=== PATIENT | male | born 1940 | race Caucasian/White ===

== ENCOUNTER 2020-03-15 08:37 | Outpatient (REF) | payer MEDICARE, SELFPAY ==
[2020-03-15 09:44] LABS: MANUAL DIFF FLAG NO
[2020-03-15 10:06] LABS: Basophils Percent Auto 0.6 % (0-2); Eosinophils Absolute Auto 0.4 X10*3/uL (0.0-0.4); Hematocrit 47.3 % (42-52); Hemoglobin 15.9 g/dl (14.0-18.0); Imm Gran Abs Auto 0.02 X10*3/uL (0.00-0.03); Imm Gran Pct Auto 0.3 % (0.0-0.4); Lymphocytes Absolute Auto 1.6 X10*3/uL (1.2-4.9); Lymphocytes Percent Auto 24.4 % (20-40); Mean Corpuscular HGB Conc 33.6 g/dl (31.0-36.0); Mean Corpuscular Hemoglobin 30.7 pg (27.0-33.0); Mean Corpuscular Volume 91.3 fL (80-98); Mean Platelet Volume 9.5 fL (9.4-12.4); Monocytes Absolute Auto 0.6 X10*3/uL (0.1-1.2); Monocytes Percent Auto 9.6 % (2-11); Neutrophils Absolute Auto 3.9 X10*3/uL (2.0-8.3); Neutrophils Percent Auto 59.1 % (45-73); Platelet Count 208 X10*3/uL (160-400); Red Blood Count 5.18 X10*6/uL (4.60-5.80); Red Cell Distribution Width 13.7 % (11.0-16.0); White Blood Count 6.7 X10*3/uL (4.8-10.8)
[2020-03-15 10:56] LABS: Estimated Average Glucose 103 mg/dL; Hemoglobin A1c % 5.2 %
[2020-03-15 11:17] LABS: Alanine Aminotransferase 13 U/L (0-40); Albumin Level 4.4 g/dL (3.5-5.0); Alkaline Phosphatase 70 U/L (39-117); Aspartate Amino Transferase 16 U/L (5-37); Bilirubin Total 1.7 mg/dL (0.0-1.0); Blood Urea Nitrogen 21 mg/dL (9-16); Calcium 9.5 mg/dL (8.4-10.2); Cholesterol 135 mg/dL; Estimated Glomerular Filt Rate > 60; Glucose Fasting 101 mg/dL (60-99); HDL Cholesterol 38 mg/dL; Total Protein 7.1 g/dL (6.5-8.0)
[2020-03-15 11:56] LABS: Anion Gap 15 (12-20); Carbon Dioxide 26 mmol/L (22-29); Chloride 101 mmol/L (96-108); LDL Cholesterol Calculated 62 mg/dl; Sodium 137 mmol/L (135-145); Triglycerides 176 mg/dL
== END 2020-03-15 08:38 | disposition home or self-care (01) ==
LOC: HO.LAB 08:37
PROVIDERS: PCP Internal Medicine Medical Oncology; Visit Provider Internal Medicine Medical Oncology
DX: E11.9 Type 2 diabetes mellitus without complications (principal); I10 Essential (primary) hypertension; E78.5 Hyperlipidemia, unspecified
CPT/HCPCS: 36415; 80053; 80061; 83036; 85025

== ENCOUNTER 2020-06-14 09:22 | Outpatient (REF) | payer MEDICARE, SELFPAY ==
[2020-06-14 10:22] LABS: MANUAL DIFF FLAG NO
[2020-06-14 10:28] LABS: Basophils Absolute Auto 0.1 X10*3/uL (0.0-0.2); Basophils Percent Auto 0.9 % (0-2); Eosinophils Absolute Auto 0.3 X10*3/uL (0.0-0.4); Eosinophils Percent Auto 4.1 % (0-4); Hematocrit 46.7 % (42-52); Hemoglobin 15.9 g/dl (14.0-18.0); Imm Gran Abs Auto 0.02 X10*3/uL (0.00-0.03); Imm Gran Pct Auto 0.3 % (0.0-0.4); Lymphocytes Absolute Auto 1.7 X10*3/uL (1.2-4.9); Lymphocytes Percent Auto 25.4 % (20-40); Mean Corpuscular Hemoglobin 31.1 pg (27.0-33.0); Mean Corpuscular Volume 91.4 fL (80-98); Mean Platelet Volume 9.1 fL (9.4-12.4); Monocytes Absolute Auto 0.6 X10*3/uL (0.1-1.2); Neutrophils Absolute Auto 4.1 X10*3/uL (2.0-8.3); Neutrophils Percent Auto 60.3 % (45-73); Platelet Count 201 X10*3/uL (160-400); Red Blood Count 5.11 X10*6/uL (4.60-5.80); White Blood Count 6.8 X10*3/uL (4.8-10.8)
[2020-06-14 10:50] LABS: Alanine Aminotransferase 14 U/L (0-40); Albumin Level 4.5 g/dL (3.5-5.0); Alkaline Phosphatase 69 U/L (39-117); Anion Gap 15 (12-20); Aspartate Amino Transferase 17 U/L (5-37); Bilirubin Total 1.5 mg/dL (0.0-1.0); Blood Urea Nitrogen 20 mg/dL (9-16); Calcium 9.1 mg/dL (8.4-10.2); Carbon Dioxide 27 mmol/L (22-29); Chloride 101 mmol/L (96-108); Cholesterol 131 mg/dL; Estimated Glomerular Filt Rate > 60; Glucose Fasting 110 mg/dL (60-99); HDL Cholesterol 34 mg/dL; LDL Cholesterol Calculated 69 mg/dl; Potassium 4.9 mmol/l (3.3-5.1); Sodium 138 mmol/L (135-145); Total Protein 7.1 g/dL (6.5-8.0); Triglycerides 142 mg/dL
== END 2020-06-14 09:23 | disposition home or self-care (01) ==
LOC: HO.LAB 09:22
PROVIDERS: Visit Provider Internal Medicine Medical Oncology
DX: E66.9 Obesity, unspecified (principal); E11.9 Type 2 diabetes mellitus without complications; E78.5 Hyperlipidemia, unspecified
CPT/HCPCS: 36415; 80053; 80061; 85025

== ENCOUNTER 2020-10-10 08:23 | Outpatient (REF) | payer MEDICARE, SELFPAY ==
[2020-10-10 09:31] LABS: MANUAL DIFF FLAG NO
[2020-10-10 09:40] LABS: Basophils Percent Auto 0.7 % (0-2); Eosinophils Absolute Auto 0.2 X10*3/uL (0.0-0.4); Eosinophils Percent Auto 4.2 % (0-4); Hematocrit 45.3 % (42-52); Hemoglobin 15.5 g/dl (14.0-18.0); Imm Gran Abs Auto 0.01 X10*3/uL (0.00-0.03); Imm Gran Pct Auto 0.2 % (0.0-0.4); Lymphocytes Absolute Auto 1.5 X10*3/uL (1.2-4.9); Lymphocytes Percent Auto 27.3 % (20-40); Mean Corpuscular HGB Conc 34.2 g/dl (31.0-36.0); Mean Corpuscular Hemoglobin 31.3 pg (27.0-33.0); Mean Corpuscular Volume 91.3 fL (80-98); Mean Platelet Volume 8.9 fL (9.4-12.4); Monocytes Absolute Auto 0.6 X10*3/uL (0.1-1.2); Monocytes Percent Auto 10.1 % (2-11); Neutrophils Absolute Auto 3.2 X10*3/uL (2.0-8.3); Neutrophils Percent Auto 57.5 % (45-73); Platelet Count 194 X10*3/uL (160-400); Red Blood Count 4.96 X10*6/uL (4.60-5.80); Red Cell Distribution Width 13.3 % (11.0-16.0); White Blood Count 5.5 X10*3/uL (4.8-10.8)
[2020-10-10 09:47] LABS: Estimated Average Glucose 111 mg/dL; Hemoglobin A1c % 5.5 %
[2020-10-10 10:03] LABS: Alanine Aminotransferase 18 U/L (0-40); Albumin Level 4.3 g/dL (3.5-5.0); Alkaline Phosphatase 60 U/L (39-117); Anion Gap 14 (12-20); Aspartate Amino Transferase 19 U/L (5-37); Bilirubin Total 1.7 mg/dL (0.0-1.0); Blood Urea Nitrogen 18 mg/dL (9-16); Calcium 9.1 mg/dL (8.4-10.2); Carbon Dioxide 22 mmol/L (22-29); Chloride 105 mmol/L (96-108); Cholesterol 147 mg/dL; Estimated Glomerular Filt Rate > 60; Glucose Fasting 113 mg/dL (60-99); HDL Cholesterol 35 mg/dL; LDL Cholesterol Calculated 80 mg/dl; Potassium 4.3 mmol/L (3.3-5.1); Sodium 137 mmol/L (135-145); Total Protein 6.8 g/dL (6.5-8.0); Triglycerides 163 mg/dL
[2020-10-10 10:51] LABS: Creatinine Urine 131.78 mg/dL; Microalbum/Creatinine Ratio Ur 5.3 ug/mg cr
== END 2020-10-10 08:24 | disposition home or self-care (01) ==
LOC: HO.LAB 08:23
PROVIDERS: PCP Internal Medicine Medical Oncology; Visit Provider Internal Medicine Medical Oncology
DX: E11.9 Type 2 diabetes mellitus without complications (principal); E78.5 Hyperlipidemia, unspecified; I10 Essential (primary) hypertension
CPT/HCPCS: 36415; 80053; 80061; 82043; 83036; 85025

== ENCOUNTER 2021-02-12 08:37 | Outpatient (REF) | payer MEDICARE, SELFPAY ==
[2021-02-12 09:18] LABS: MANUAL DIFF FLAG NO
[2021-02-12 09:26] LABS: Basophils Absolute Auto 0.1 X10*3/uL (0.0-0.2); Basophils Percent Auto 0.8 % (0-2); Eosinophils Absolute Auto 0.3 X10*3/uL (0.0-0.4); Hematocrit 46.4 % (42-52); Hemoglobin 15.9 g/dl (14.0-18.0); Imm Gran Abs Auto 0.02 X10*3/uL (0.00-0.03); Imm Gran Pct Auto 0.3 % (0.0-0.4); Lymphocytes Absolute Auto 1.8 X10*3/uL (1.2-4.9); Lymphocytes Percent Auto 28.3 % (20-40); Mean Corpuscular HGB Conc 34.3 g/dl (31.0-36.0); Mean Corpuscular Hemoglobin 31.2 pg (27.0-33.0); Mean Platelet Volume 9.1 fL (9.4-12.4); Monocytes Absolute Auto 0.6 X10*3/uL (0.1-1.2); Monocytes Percent Auto 9.1 % (2-11); Neutrophils Absolute Auto 3.6 X10*3/uL (2.0-8.3); Neutrophils Percent Auto 57.5 % (45-73); Platelet Count 197 X10*3/uL (160-400); Red Cell Distribution Width 13.2 % (11.0-16.0); White Blood Count 6.3 X10*3/uL (4.8-10.8)
[2021-02-12 10:13] LABS: Alanine Aminotransferase 17 U/L (0-40); Albumin Level 4.3 g/dL (3.5-5.0); Alkaline Phosphatase 68 U/L (39-117); Anion Gap 15 (12-20); Aspartate Amino Transferase 18 U/L (5-37); Bilirubin Total 1.5 mg/dL (0.0-1.0); Blood Urea Nitrogen 14 mg/dL (9-16); Calcium 9.4 mg/dL (8.4-10.2); Carbon Dioxide 24 mmol/L (22-29); Chloride 104 mmol/L (96-108); Cholesterol 133 mg/dL; Estimated Glomerular Filt Rate > 60; Glucose Fasting 108 mg/dL (60-99); HDL Cholesterol 35 mg/dL; LDL Cholesterol Calculated 68 mg/dl; Potassium 4.6 mmol/L (3.3-5.1); Sodium 138 mmol/L (135-145); Total Protein 6.7 g/dL (6.5-8.0); Triglycerides 151 mg/dL
[2021-02-12 11:01] LABS: Estimated Average Glucose 108 mg/dL; Hemoglobin A1c % 5.4 %
[2021-02-12 11:01] LABS: Creatinine Urine 218.09 mg/dL; Microalbum/Creatinine Ratio Ur 4.5 ug/mg cr
== END 2021-02-12 08:38 | disposition home or self-care (01) ==
LOC: HO.LAB 08:37
PROVIDERS: PCP Internal Medicine Medical Oncology; Visit Provider Internal Medicine Medical Oncology
DX: I10 Essential (primary) hypertension (principal); E78.5 Hyperlipidemia, unspecified; E11.9 Type 2 diabetes mellitus without complications
CPT/HCPCS: 36415; 80053; 80061; 82043; 83036; 85025

== ENCOUNTER 2021-06-12 08:44 | Outpatient (REF) | payer MEDICARE, SELFPAY ==
[2021-06-12 09:02] LABS: MANUAL DIFF FLAG NO
[2021-06-12 09:19] LABS: Basophils Percent Auto 0.6 % (0-2); Eosinophils Absolute Auto 0.2 X10*3/uL (0.0-0.4); Eosinophils Percent Auto 3.1 % (0-4); Hematocrit 48.6 % (42.0-52.0); Hemoglobin 16.5 g/dl (14.0-18.0); Imm Gran Abs Auto 0.01 X10*3/uL (0.00-0.03); Imm Gran Pct Auto 0.1 % (0.0-0.4); Lymphocytes Absolute Auto 1.8 X10*3/uL (1.2-4.9); Lymphocytes Percent Auto 27.1 % (20-40); Mean Corpuscular Volume 91.4 fL (80.0-98.0); Mean Platelet Volume 8.9 fL (9.4-12.4); Monocytes Absolute Auto 0.6 X10*3/uL (0.1-1.2); Neutrophils Absolute Auto 4.1 x10*3/uL (2.0-8.3); Neutrophils Percent Auto 60.1 % (45-73); Platelet Count 200 X10*3/uL (160-400); Red Blood Count 5.32 X10*6/uL (4.60-5.80); Red Cell Distribution Width 13.2 % (11.0-16.0); White Blood Count 6.8 X10*3/uL (4.8-10.8)
[2021-06-12 09:45] LABS: Alanine Aminotransferase 15 U/L (0-40); Albumin Level 4.4 g/dL (3.5-5.0); Alkaline Phosphatase 69 U/L (39-117); Anion Gap 16 (12-20); Aspartate Amino Transferase 15 U/L (5-37); Bilirubin Total 1.5 mg/dL (0.0-1.0); Blood Urea Nitrogen 21 mg/dL (9-16); Calcium 9.8 mg/dL (8.4-10.2); Carbon Dioxide 21 mmol/L (22-29); Chloride 106 mmol/L (96-108); Cholesterol 140 mg/dL; Estimated Glomerular Filt Rate > 60; Glucose Fasting 120 mg/dL (60-99); HDL Cholesterol 34 mg/dL; LDL Cholesterol Calculated 73 mg/dl; Potassium 4.2 mmol/L (3.3-5.1); Sodium 139 mmol/L (135-145); Total Protein 7.2 g/dL (6.5-8.0); Triglycerides 167 mg/dL
[2021-06-12 09:59] LABS: Estimated Average Glucose 111 mg/dL; Hemoglobin A1c % 5.5 %
[2021-06-12 10:55] LABS: Creatinine Urine 240.95 mg/dL; Microalbum/Creatinine Ratio Ur 6.2 ug/mg cr
== END 2021-06-12 08:45 | disposition home or self-care (01) ==
LOC: HO.LABR 08:44
PROVIDERS: PCP Internal Medicine Medical Oncology; Visit Provider Internal Medicine Medical Oncology
DX: E66.9 Obesity, unspecified (principal); E78.5 Hyperlipidemia, unspecified; E11.9 Type 2 diabetes mellitus without complications
CPT/HCPCS: 36415; 80053; 80061; 82043; 83036; 85025

== ENCOUNTER 2021-09-11 09:00 | Outpatient (REF) | payer MEDICARE, SELFPAY ==
[2021-09-11 09:30] LABS: MANUAL DIFF FLAG NO
[2021-09-11 10:27] LABS: Basophils Absolute Auto 0.1 X10*3/uL (0.0-0.2); Basophils Percent Auto 0.8 % (0-2); Eosinophils Absolute Auto 0.2 X10*3/uL (0.0-0.4); Eosinophils Percent Auto 3.6 % (0-4); Hematocrit 47.5 % (42.0-52.0); Hemoglobin 15.8 g/dl (14.0-18.0); Imm Gran Abs Auto 0.01 X10*3/uL (0.00-0.03); Imm Gran Pct Auto 0.2 % (0.0-0.4); Lymphocytes Absolute Auto 1.6 X10*3/uL (1.2-4.9); Lymphocytes Percent Auto 25.3 % (20-40); Mean Corpuscular HGB Conc 33.3 g/dl (31.0-36.0); Mean Corpuscular Hemoglobin 30.4 pg (27.0-33.0); Mean Corpuscular Volume 91.5 fL (80.0-98.0); Mean Platelet Volume 9.5 fL (9.4-12.4); Monocytes Absolute Auto 0.5 X10*3/uL (0.1-1.2); Monocytes Percent Auto 8.4 % (2-11); Neutrophils Percent Auto 61.7 % (45-73); Platelet Count 224 X10*3/uL (160-400); Red Blood Count 5.19 X10*6/uL (4.60-5.80); Red Cell Distribution Width 13.6 % (11.0-16.0); White Blood Count 6.4 X10*3/uL (4.8-10.8)
[2021-09-11 10:31] LABS: Estimated Average Glucose 111 mg/dL; Hemoglobin A1c % 5.5 %
[2021-09-11 11:04] LABS: Alanine Aminotransferase 18 U/L (0-40); Albumin Level 4.1 g/dL (3.5-5.0); Alkaline Phosphatase 66 U/L (39-117); Anion Gap 15 (12-20); Aspartate Amino Transferase 18 U/L (5-37); Bilirubin Total 1.6 mg/dL (0.0-1.0); Blood Urea Nitrogen 18 mg/dL (9-16); Calcium 9.4 mg/dL (8.4-10.2); Carbon Dioxide 23 mmol/L (22-29); Chloride 105 mmol/L (96-108); Cholesterol 135 mg/dL; Estimated Glomerular Filt Rate > 60; Glucose Fasting 120 mg/dL (60-99); HDL Cholesterol 32 mg/dL; LDL Cholesterol Calculated 78 mg/dl; Potassium 4.9 mmol/L (3.3-5.1); Sodium 138 mmol/L (135-145); Total Protein 6.9 g/dL (6.5-8.0); Triglycerides 127 mg/dL
[2021-09-11 11:07] LABS: Prostate Specific Antigen 4.44 ng/mL (<0.05-4.0)
== END 2021-09-11 09:01 | disposition home or self-care (01) ==
LOC: HO.LAB 09:00
PROVIDERS: PCP Internal Medicine Medical Oncology; Visit Provider Internal Medicine Medical Oncology
DX: Z12.5 Encounter for screening for malignant neoplasm of prostate (principal); E66.9 Obesity, unspecified; E78.5 Hyperlipidemia, unspecified; E11.9 Type 2 diabetes mellitus without complications; N40.0 Benign prostatic hyperplasia without lower urinary tract symptoms
CPT/HCPCS: 36415; 80053; 80061; 83036; 84153; 85025

== ENCOUNTER 2022-01-16 08:35 | Outpatient (REF) | payer MEDICARE, SELFPAY ==
[2022-01-16 08:51] LABS: MANUAL DIFF FLAG NO
[2022-01-16 09:06] LABS: Basophils Percent Auto 0.6 % (0-2); Eosinophils Absolute Auto 0.2 X10*3/uL (0.0-0.4); Eosinophils Percent Auto 3.1 % (0-4); Hematocrit 48.6 % (42.0-52.0); Hemoglobin 16.5 g/dl (14.0-18.0); Imm Gran Abs Auto 0.02 X10*3/uL (0.00-0.03); Imm Gran Pct Auto 0.3 % (0.0-0.4); Lymphocytes Percent Auto 29.5 % (20-40); Mean Corpuscular Hemoglobin 30.6 pg (27.0-33.0); Monocytes Absolute Auto 0.6 X10*3/uL (0.1-1.2); Monocytes Percent Auto 9.4 % (2-11); Neutrophils Absolute Auto 3.9 x10*3/uL (2.0-8.3); Neutrophils Percent Auto 57.1 % (45-73); Platelet Count 216 X10*3/uL (160-400); Red Cell Distribution Width 13.8 % (11.0-16.0); White Blood Count 6.8 X10*3/uL (4.8-10.8)
[2022-01-16 09:43] LABS: Alanine Aminotransferase 15 U/L (0-40); Albumin Level 4.3 g/dL (3.5-5.0); Alkaline Phosphatase 73 U/L (39-117); Anion Gap 18 (12-20); Aspartate Amino Transferase 19 U/L (5-37); Bilirubin Total 1.5 mg/dL (0.0-1.0); Blood Urea Nitrogen 17 mg/dL (9-16); Calcium 9.2 mg/dL (8.4-10.2); Carbon Dioxide 22 mmol/L (22-29); Chloride 105 mmol/L (96-108); Cholesterol 130 mg/dL; Estimated Glomerular Filt Rate > 60; Glucose Fasting 117 mg/dL (60-99); HDL Cholesterol 36 mg/dL; LDL Cholesterol Calculated 72 mg/dl; Potassium 4.5 mmol/L (3.3-5.1); Sodium 140 mmol/L (135-145); Total Protein 7.1 g/dL (6.5-8.0); Triglycerides 113 mg/dL
[2022-01-16 10:05] LABS: Prostate Specific Antigen 4.03 ng/mL (<0.05-4.0)
== END 2022-01-16 08:36 | disposition home or self-care (01) ==
LOC: HO.LAB 08:35
PROVIDERS: PCP Internal Medicine Medical Oncology; Visit Provider Internal Medicine Medical Oncology
DX: E66.9 Obesity, unspecified (principal); N40.0 Benign prostatic hyperplasia without lower urinary tract symptoms; I25.10 Atherosclerotic heart disease of native coronary artery without angina pectoris; E78.5 Hyperlipidemia, unspecified; I10 Essential (primary) hypertension; E11.9 Type 2 diabetes mellitus without complications; Z12.5 Encounter for screening for malignant neoplasm of prostate
CPT/HCPCS: 36415; 80053; 80061; 84153; 85025

== ENCOUNTER 2022-04-16 08:19 | Outpatient (REF) | payer MEDICARE, SELFPAY ==
[2022-04-16 08:29] LABS: MANUAL DIFF FLAG NO
[2022-04-16 08:47] LABS: Basophils Percent Auto 0.6 % (0-2); Eosinophils Absolute Auto 0.2 X10*3/uL (0.0-0.4); Eosinophils Percent Auto 3.6 % (0-4); Hematocrit 48.8 % (42.0-52.0); Hemoglobin 16.4 g/dl (14.0-18.0); Imm Gran Abs Auto 0.02 X10*3/uL (0.00-0.03); Imm Gran Pct Auto 0.3 % (0.0-0.4); Lymphocytes Absolute Auto 1.8 X10*3/uL (1.2-4.9); Lymphocytes Percent Auto 28.6 % (20-40); Mean Corpuscular HGB Conc 33.6 g/dl (31.0-36.0); Mean Corpuscular Hemoglobin 30.3 pg (27.0-33.0); Mean Platelet Volume 8.6 fL (9.4-12.4); Monocytes Absolute Auto 0.5 X10*3/uL (0.1-1.2); Monocytes Percent Auto 8.5 % (2-11); Neutrophils Absolute Auto 3.7 x10*3/uL (2.0-8.3); Neutrophils Percent Auto 58.4 % (45-73); Platelet Count 209 X10*3/uL (160-400); Red Blood Count 5.42 X10*6/uL (4.60-5.80); Red Cell Distribution Width 13.5 % (11.0-16.0); White Blood Count 6.4 X10*3/uL (4.8-10.8)
[2022-04-16 09:18] LABS: Alanine Aminotransferase 17 U/L (0-40); Albumin Level 4.5 g/dL (3.5-5.0); Alkaline Phosphatase 79 U/L (39-117); Anion Gap 17 (12-20); Aspartate Amino Transferase 17 U/L (5-37); Bilirubin Total 1.4 mg/dL (0.0-1.0); Blood Urea Nitrogen 16 mg/dL (9-16); Calcium 9.6 mg/dL (8.4-10.2); Carbon Dioxide 24 mmol/L (22-29); Chloride 103 mmol/L (96-108); Cholesterol 130 mg/dL; Estimated Glomerular Filt Rate 57; Glucose Fasting 130 mg/dL (60-99); HDL Cholesterol 34 mg/dL; LDL Cholesterol Calculated 72 mg/dl; Potassium 4.5 mmol/L (3.3-5.1); Sodium 139 mmol/L (135-145); Total Protein 7.1 g/dL (6.5-8.0); Triglycerides 124 mg/dL
[2022-04-16 09:39] LABS: Prostate Specific Antigen 4.88 ng/mL (<0.05-4.0)
== END 2022-04-16 08:20 | disposition home or self-care (01) ==
LOC: HO.LAB 08:19
PROVIDERS: PCP Internal Medicine Medical Oncology; Visit Provider Internal Medicine Medical Oncology
DX: Z12.5 Encounter for screening for malignant neoplasm of prostate (principal); I25.10 Atherosclerotic heart disease of native coronary artery without angina pectoris; N40.0 Benign prostatic hyperplasia without lower urinary tract symptoms; E78.5 Hyperlipidemia, unspecified
CPT/HCPCS: 36415; 80053; 80061; 84153; 85025

== ENCOUNTER 2022-07-16 08:28 | Outpatient (REF) | payer MEDICARE, SELFPAY ==
[2022-07-16 08:53] LABS: MANUAL DIFF FLAG NO
[2022-07-16 09:05] LABS: Basophils Absolute Auto 0.1 X10*3/uL (0.0-0.2); Basophils Percent Auto 0.7 % (0-2); Eosinophils Absolute Auto 0.2 X10*3/uL (0.0-0.4); Eosinophils Percent Auto 3.4 % (0-4); Hematocrit 47.5 % (42.0-52.0); Hemoglobin 16.3 g/dl (14.0-18.0); Imm Gran Abs Auto 0.02 X10*3/uL (0.00-0.03); Imm Gran Pct Auto 0.3 % (0.0-0.4); Lymphocytes Absolute Auto 1.9 X10*3/uL (1.2-4.9); Lymphocytes Percent Auto 28.9 % (20-40); Mean Corpuscular HGB Conc 34.3 g/dl (31.0-36.0); Mean Corpuscular Hemoglobin 31.1 pg (27.0-33.0); Mean Corpuscular Volume 90.6 fL (80.0-98.0); Monocytes Absolute Auto 0.6 X10*3/uL (0.1-1.2); Neutrophils Absolute Auto 3.9 x10*3/uL (2.0-8.3); Neutrophils Percent Auto 57.7 % (45-73); Platelet Count 215 X10*3/uL (160-400); Red Blood Count 5.24 X10*6/uL (4.60-5.80); Red Cell Distribution Width 14.2 % (11.0-16.0); White Blood Count 6.7 X10*3/uL (4.8-10.8)
[2022-07-16 09:20] LABS: Estimated Average Glucose 117 mg/dL; Hemoglobin A1c % 5.7 %
[2022-07-16 09:36] LABS: Alanine Aminotransferase 15 U/L (0-40); Albumin Level 4.3 g/dL (3.5-5.0); Alkaline Phosphatase 68 U/L (39-117); Anion Gap 15 (12-20); Aspartate Amino Transferase 16 U/L (5-37); Bilirubin Total 1.7 mg/dL (0.0-1.0); Blood Urea Nitrogen 19 mg/dL (9-16); Calcium 9.5 mg/dL (8.4-10.2); Carbon Dioxide 24 mmol/L (22-29); Chloride 105 mmol/L (96-108); Cholesterol 133 mg/dL; Estimated Glomerular Filt Rate 57; Glucose Fasting 123 mg/dL (60-99); HDL Cholesterol 32 mg/dL; LDL Cholesterol Calculated 78 mg/dl; Potassium 4.7 mmol/L (3.3-5.1); Sodium 139 mmol/L (135-145); Total Protein 6.7 g/dL (6.5-8.0); Triglycerides 117 mg/dL
[2022-07-16 09:50] LABS: Creatinine Urine 387.63 mg/dL; Microalbum/Creatinine Ratio Ur 5.6 ug/mg cr
== END 2022-07-16 08:29 | disposition home or self-care (01) ==
LOC: HO.LAB 08:28
PROVIDERS: PCP Internal Medicine Medical Oncology; Visit Provider Internal Medicine Medical Oncology
DX: E78.5 Hyperlipidemia, unspecified (principal); N40.0 Benign prostatic hyperplasia without lower urinary tract symptoms
CPT/HCPCS: 36415; 80053; 80061; 82043; 83036; 85025

== ENCOUNTER 2022-10-24 08:21 | Outpatient (REF) | payer MEDICARE, SELFPAY ==
[2022-10-24 08:35] LABS: MANUAL DIFF FLAG NO
[2022-10-24 09:59] LABS: Basophils Percent Auto 0.6 % (0-2); Eosinophils Absolute Auto 0.2 X10*3/uL (0.0-0.4); Eosinophils Percent Auto 2.9 % (0-4); Hematocrit 50.6 % (42.0-52.0); Hemoglobin 16.8 g/dl (14.0-18.0); Imm Gran Abs Auto 0.02 X10*3/uL (0.00-0.03); Imm Gran Pct Auto 0.3 % (0.0-0.4); Lymphocytes Absolute Auto 2.1 X10*3/uL (1.2-4.9); Lymphocytes Percent Auto 28.7 % (20-40); Mean Corpuscular HGB Conc 33.2 g/dl (31.0-36.0); Mean Corpuscular Hemoglobin 30.2 pg (27.0-33.0); Mean Platelet Volume 9.2 fL (9.4-12.4); Monocytes Absolute Auto 0.6 X10*3/uL (0.1-1.2); Monocytes Percent Auto 8.9 % (2-11); Neutrophils Absolute Auto 4.2 x10*3/uL (2.0-8.3); Neutrophils Percent Auto 58.6 % (45-73); Platelet Count 227 X10*3/uL (160-400); Red Blood Count 5.56 X10*6/uL (4.60-5.80); Red Cell Distribution Width 13.7 % (11.0-16.0); White Blood Count 7.2 X10*3/uL (4.8-10.8)
[2022-10-24 10:08] LABS: Estimated Average Glucose 108 mg/dL; Hemoglobin A1c % 5.4 %
[2022-10-24 10:43] LABS: Alanine Aminotransferase 17 U/L (0-40); Albumin Level 4.5 g/dL (3.5-5.0); Alkaline Phosphatase 79 U/L (39-117); Anion Gap 20 (12-20); Aspartate Amino Transferase 16 U/L (5-37); Blood Urea Nitrogen 15 mg/dL (9-16); Calcium 9.8 mg/dL (8.4-10.2); Carbon Dioxide 20 mmol/L (22-29); Chloride 105 mmol/L (96-108); Cholesterol 125 mg/dL; Estimated Glomerular Filt Rate > 60; Glucose Fasting 117 mg/dL (60-99); HDL Cholesterol 33 mg/dL; LDL Cholesterol Calculated 67 mg/dl; Sodium 140 mmol/L (135-145); Total Protein 7.3 g/dL (6.5-8.0); Triglycerides 129 mg/dL
== END 2022-10-24 08:22 | disposition home or self-care (01) ==
LOC: HO.LAB 08:21
PROVIDERS: PCP Internal Medicine Medical Oncology; Visit Provider Internal Medicine Medical Oncology
DX: Z12.5 Encounter for screening for malignant neoplasm of prostate (principal); I25.10 Atherosclerotic heart disease of native coronary artery without angina pectoris; E78.5 Hyperlipidemia, unspecified; E11.9 Type 2 diabetes mellitus without complications; N40.0 Benign prostatic hyperplasia without lower urinary tract symptoms
CPT/HCPCS: 36415; 80053; 80061; 83036; 84153; 85025

== ENCOUNTER 2023-01-16 08:06 | Outpatient (REF) | payer MEDICARE, SELFPAY ==
[2023-01-16 08:29] LABS: MANUAL DIFF FLAG NO
[2023-01-16 09:05] LABS: Basophils Percent Auto 0.6 % (0-2); Eosinophils Absolute Auto 0.2 X10*3/uL (0.0-0.4); Eosinophils Percent Auto 2.7 % (0-4); Hematocrit 47.4 % (42.0-52.0); Imm Gran Abs Auto 0.02 X10*3/uL (0.00-0.03); Imm Gran Pct Auto 0.3 % (0.0-0.4); Lymphocytes Absolute Auto 1.8 X10*3/uL (1.2-4.9); Lymphocytes Percent Auto 27.9 % (20-40); Mean Corpuscular HGB Conc 33.8 g/dl (31.0-36.0); Mean Corpuscular Hemoglobin 30.5 pg (27.0-33.0); Mean Corpuscular Volume 90.3 fL (80.0-98.0); Monocytes Absolute Auto 0.6 X10*3/uL (0.1-1.2); Monocytes Percent Auto 8.8 % (2-11); Neutrophils Absolute Auto 3.8 x10*3/uL (2.0-8.3); Neutrophils Percent Auto 59.7 % (45-73); Platelet Count 204 X10*3/uL (160-400); Red Blood Count 5.25 X10*6/uL (4.60-5.80); Red Cell Distribution Width 13.4 % (11.0-16.0); White Blood Count 6.3 X10*3/uL (4.8-10.8)
[2023-01-16 09:33] LABS: Alanine Aminotransferase 12 U/L (0-40); Albumin Level 4.2 g/dL (3.5-5.0); Alkaline Phosphatase 74 U/L (39-117); Anion Gap 15 (12-20); Aspartate Amino Transferase 16 U/L (5-37); Bilirubin Total 1.4 mg/dL (0.0-1.0); Blood Urea Nitrogen 13 mg/dL (9-16); Calcium 9.7 mg/dL (8.4-10.2); Carbon Dioxide 23 mmol/L (22-29); Chloride 105 mmol/L (96-108); Cholesterol 112 mg/dL (<200); Estimated Glomerular Filt Rate > 60; Glucose Fasting 107 mg/dL (60-99); HDL Cholesterol 30 mg/dL (>40); LDL Cholesterol Calculated 60 mg/dL (<100); Potassium 4.5 mmol/L (3.3-5.1); Sodium 138 mmol/L (135-145); Total Protein 7.2 g/dL (6.5-8.0); Triglycerides 114 mg/dL (<150)
[2023-01-16 09:51] LABS: Prostate Specific Antigen 5.85 ng/mL (<0.05-4.0)
== END 2023-01-16 08:07 | disposition home or self-care (01) ==
LOC: HO.LAB 08:06
PROVIDERS: PCP Internal Medicine Medical Oncology; Visit Provider Internal Medicine Medical Oncology
DX: N40.0 Benign prostatic hyperplasia without lower urinary tract symptoms (principal); I25.10 Atherosclerotic heart disease of native coronary artery without angina pectoris; E66.9 Obesity, unspecified; E78.5 Hyperlipidemia, unspecified; I10 Essential (primary) hypertension; Z12.5 Encounter for screening for malignant neoplasm of prostate
CPT/HCPCS: 36415; 80053; 80061; 84153; 85025

== ENCOUNTER 2023-04-19 08:12 | Outpatient (REF) | payer MEDICARE, SELFPAY ==
[2023-04-19 08:26] LABS: MANUAL DIFF FLAG NO
[2023-04-19 08:39] LABS: Basophils Absolute Auto 0.1 X10*3/uL (0.0-0.2); Basophils Percent Auto 0.9 % (0-2); Eosinophils Absolute Auto 0.3 X10*3/uL (0.0-0.4); Eosinophils Percent Auto 3.3 % (0-4); Hematocrit 49.6 % (42.0-52.0); Hemoglobin 16.7 g/dl (14.0-18.0); Imm Gran Abs Auto 0.03 X10*3/uL (0.00-0.03); Imm Gran Pct Auto 0.4 % (0.0-0.4); Lymphocytes Absolute Auto 2.2 X10*3/uL (1.2-4.9); Lymphocytes Percent Auto 28.1 % (20-40); Mean Corpuscular HGB Conc 33.7 g/dl (31.0-36.0); Mean Corpuscular Hemoglobin 31.2 pg (27.0-33.0); Mean Corpuscular Volume 92.7 fL (80.0-98.0); Mean Platelet Volume 9.1 fL (9.4-12.4); Monocytes Absolute Auto 0.7 X10*3/uL (0.1-1.2); Monocytes Percent Auto 8.5 % (2-11); Neutrophils Absolute Auto 4.7 x10*3/uL (2.0-8.3); Neutrophils Percent Auto 58.8 % (45-73); Platelet Count 220 X10*3/uL (160-400); Red Blood Count 5.35 X10*6/uL (4.60-5.80); White Blood Count 7.9 X10*3/uL (4.8-10.8)
[2023-04-19 08:46] LABS: Estimated Average Glucose 111 mg/dL; Hemoglobin A1c % 5.5 % (<6.0)
[2023-04-19 09:10] LABS: Alanine Aminotransferase 15 U/L (0-40); Albumin Level 4.4 g/dL (3.5-5.0); Alkaline Phosphatase 79 U/L (39-117); Anion Gap 17 (12-20); Aspartate Amino Transferase 16 U/L (5-37); Bilirubin Total 1.3 mg/dL (0.0-1.0); Blood Urea Nitrogen 17 mg/dL (9-16); Calcium 9.5 mg/dL (8.4-10.2); Carbon Dioxide 21 mmol/L (22-29); Chloride 106 mmol/L (96-108); Cholesterol 112 mg/dL (<200); Estimated Glomerular Filt Rate 59; Glucose Random 126 mg/dL (60-115); HDL Cholesterol 33 mg/dL (>40); LDL Cholesterol Calculated 56 mg/dL (<100); Potassium 4.1 mmol/L (3.3-5.1); Sodium 140 mmol/L (135-145); Total Protein 7.5 g/dL (6.5-8.0); Triglycerides 119 mg/dL (<150)
[2023-04-19 09:34] LABS: Prostate Specific Antigen 5.95 ng/mL (<0.05-4.0)
== END 2023-04-19 08:13 | disposition home or self-care (01) ==
LOC: HO.LAB 08:12
PROVIDERS: PCP Internal Medicine Medical Oncology; Visit Provider Internal Medicine Medical Oncology
DX: Z12.5 Encounter for screening for malignant neoplasm of prostate (principal); E66.9 Obesity, unspecified; E78.5 Hyperlipidemia, unspecified; I10 Essential (primary) hypertension; N40.0 Benign prostatic hyperplasia without lower urinary tract symptoms; E11.9 Type 2 diabetes mellitus without complications
CPT/HCPCS: 36415; 80053; 80061; 83036; 84153; 85025

== ENCOUNTER 2023-07-16 08:28 | Outpatient (REF) | payer MEDICARE, SELFPAY ==
[2023-07-16 08:47] LABS: MANUAL DIFF FLAG NO
[2023-07-16 09:17] LABS: Basophils Absolute Auto 0.1 X10*3/uL (0.0-0.2); Basophils Percent Auto 0.7 % (0-2); Eosinophils Absolute Auto 0.1 X10*3/uL (0.0-0.4); Eosinophils Percent Auto 1.9 % (0-4); Hematocrit 48.6 % (42.0-52.0); Hemoglobin 16.6 g/dl (14.0-18.0); Imm Gran Abs Auto 0.03 X10*3/uL (0.00-0.03); Imm Gran Pct Auto 0.4 % (0.0-0.4); Lymphocytes Absolute Auto 1.7 X10*3/uL (1.2-4.9); Lymphocytes Percent Auto 24.8 % (20-40); Mean Corpuscular HGB Conc 34.2 g/dl (31.0-36.0); Mean Corpuscular Volume 90.8 fL (80.0-98.0); Mean Platelet Volume 8.8 fL (9.4-12.4); Monocytes Absolute Auto 0.6 X10*3/uL (0.1-1.2); Monocytes Percent Auto 8.6 % (2-11); Neutrophils Absolute Auto 4.4 x10*3/uL (2.0-8.3); Neutrophils Percent Auto 63.6 % (45-73); Platelet Count 233 X10*3/uL (160-400); Red Blood Count 5.35 X10*6/uL (4.60-5.80); White Blood Count 6.9 X10*3/uL (4.8-10.8)
[2023-07-16 09:25] LABS: Estimated Average Glucose 111 mg/dL; Hemoglobin A1c % 5.5 % (<6.0)
[2023-07-16 09:44] LABS: Creatinine Urine 327.93 mg/dL; Microalbum/Creatinine Ratio Ur 9.4 ug/mg cr (<30)
[2023-07-16 09:46] LABS: Alanine Aminotransferase 22 U/L (0-40); Albumin Level 4.2 g/dL (3.5-5.0); Alkaline Phosphatase 76 U/L (39-117); Anion Gap 16 (12-20); Aspartate Amino Transferase 24 U/L (5-37); Bilirubin Total 1.2 mg/dL (0.0-1.0); Blood Urea Nitrogen 17 mg/dL (9-16); Calcium 9.5 mg/dL (8.4-10.2); Carbon Dioxide 21 mmol/L (22-29); Chloride 106 mmol/L (96-108); Cholesterol 123 mg/dL (<200); Estimated Glomerular Filt Rate > 60; Glucose Fasting 129 mg/dL (60-99); HDL Cholesterol 34 mg/dL (>40); LDL Cholesterol Calculated 71 mg/dL (<100); Potassium 4.3 mmol/L (3.3-5.1); Sodium 139 mmol/L (135-145); Total Protein 7.4 g/dL (6.5-8.0); Triglycerides 92 mg/dL (<150)
== END 2023-07-16 08:29 | disposition home or self-care (01) ==
LOC: HO.LAB 08:28
PROVIDERS: PCP Internal Medicine Medical Oncology; Visit Provider Internal Medicine Medical Oncology
DX: E66.9 Obesity, unspecified (principal); E78.5 Hyperlipidemia, unspecified; E11.9 Type 2 diabetes mellitus without complications
CPT/HCPCS: 36415; 80053; 80061; 82043; 82570; 83036; 85025

== ENCOUNTER 2023-10-17 08:18 | Outpatient (REF) | payer MEDICARE, SELFPAY ==
[2023-10-17 08:34] LABS: MANUAL DIFF FLAG NO
[2023-10-17 08:43] LABS: Basophils Percent Auto 0.6 % (0-2); Eosinophils Absolute Auto 0.2 X10*3/uL (0.0-0.4); Eosinophils Percent Auto 3.3 % (0-4); Hematocrit 46.1 % (42.0-52.0); Hemoglobin 15.9 g/dl (14.0-18.0); Imm Gran Abs Auto 0.01 X10*3/uL (0.00-0.03); Imm Gran Pct Auto 0.1 % (0.0-0.4); Lymphocytes Absolute Auto 2.3 X10*3/uL (1.2-4.9); Mean Corpuscular HGB Conc 34.5 g/dl (31.0-36.0); Mean Corpuscular Hemoglobin 31.4 pg (27.0-33.0); Mean Corpuscular Volume 91.1 fL (80.0-98.0); Mean Platelet Volume 8.8 fL (9.4-12.4); Monocytes Absolute Auto 0.7 X10*3/uL (0.1-1.2); Monocytes Percent Auto 9.2 % (2-11); Neutrophils Absolute Auto 4.1 x10*3/uL (2.0-8.3); Neutrophils Percent Auto 55.8 % (45-73); Platelet Count 205 X10*3/uL (160-400); Red Blood Count 5.06 X10*6/uL (4.60-5.80); Red Cell Distribution Width 13.7 % (11.0-16.0); White Blood Count 7.3 X10*3/uL (4.8-10.8)
[2023-10-17 09:18] LABS: Alanine Aminotransferase 13 U/L (0-40); Albumin Level 4.2 g/dL (3.5-5.0); Alkaline Phosphatase 73 U/L (39-117); Anion Gap 14 (12-20); Aspartate Amino Transferase 16 U/L (5-37); Bilirubin Total 1.6 mg/dL (0.0-1.0); Blood Urea Nitrogen 15 mg/dL (9-16); Calcium 9.3 mg/dL (8.4-10.2); Carbon Dioxide 20 mmol/L (22-29); Chloride 106 mmol/L (96-108); Cholesterol 119 mg/dL (<200); Estimated Glomerular Filt Rate > 60; Glucose Fasting 121 mg/dL (60-99); HDL Cholesterol 33 mg/dL (>40); LDL Cholesterol Calculated 61 mg/dL (<100); Potassium 4.1 mmol/L (3.3-5.1); Sodium 136 mmol/L (135-145); Total Protein 7.1 g/dL (6.5-8.0); Triglycerides 125 mg/dL (<150)
[2023-10-17 09:28] LABS: Estimated Average Glucose 120 mg/dL; Hemoglobin A1c % 5.8 % (<6.0)
[2023-10-17 10:16] LABS: Creatinine Urine 228.04 mg/dL; Microalbum/Creatinine Ratio Ur 6.5 ug/mg cr (<30)
== END 2023-10-17 08:19 | disposition home or self-care (01) ==
LOC: HO.LAB 08:18
PROVIDERS: PCP Internal Medicine Medical Oncology; Visit Provider Internal Medicine Medical Oncology
DX: E66.9 Obesity, unspecified (principal); E78.5 Hyperlipidemia, unspecified; E11.9 Type 2 diabetes mellitus without complications; I10 Essential (primary) hypertension
CPT/HCPCS: 36415; 80053; 80061; 82043; 82570; 83036; 85025

== ENCOUNTER 2024-01-20 08:15 | Outpatient (REF) | payer MEDICARE, SELFPAY ==
[2024-01-20 08:42] LABS: MANUAL DIFF FLAG NO
[2024-01-20 09:13] LABS: Basophils Absolute Auto 0.1 X10*3/uL (0.0-0.2); Basophils Percent Auto 0.7 % (0-2); Eosinophils Absolute Auto 0.2 X10*3/uL (0.0-0.4); Eosinophils Percent Auto 2.8 % (0-4); Hematocrit 46.7 % (42.0-52.0); Hemoglobin 16.3 g/dl (14.0-18.0); Imm Gran Abs Auto 0.03 X10*3/uL (0.00-0.03); Imm Gran Pct Auto 0.4 % (0.0-0.4); Lymphocytes Absolute Auto 2.1 X10*3/uL (1.2-4.9); Lymphocytes Percent Auto 30.7 % (20-40); Mean Corpuscular HGB Conc 34.9 g/dl (31.0-36.0); Mean Corpuscular Hemoglobin 31.6 pg (27.0-33.0); Mean Corpuscular Volume 90.5 fL (80.0-98.0); Monocytes Absolute Auto 0.6 X10*3/uL (0.1-1.2); Monocytes Percent Auto 9.2 % (2-11); Neutrophils Absolute Auto 3.8 x10*3/uL (2.0-8.3); Neutrophils Percent Auto 56.2 % (45-73); Platelet Count 181 X10*3/uL (160-400); Red Blood Count 5.16 X10*6/uL (4.60-5.80); Red Cell Distribution Width 13.7 % (11.0-16.0); White Blood Count 6.8 X10*3/uL (4.8-10.8)
[2024-01-20 09:31] LABS: Estimated Average Glucose 111 mg/dL; Hemoglobin A1C 150.7361 umol/L; Hemoglobin A1c % 5.5 % (<6.0)
[2024-01-20 09:53] LABS: Creatinine Urine 216.39 mg/dL; Microalbum/Creatinine Ratio Ur 8.7 ug/mg cr (<30)
[2024-01-20 10:00] LABS: Alanine Aminotransferase 11 U/L (0-40); Albumin Level 4.3 g/dL (3.5-5.0); Alkaline Phosphatase 72 U/L (39-117); Anion Gap 14 (12-20); Aspartate Amino Transferase 16 U/L (5-37); Bilirubin Total 1.4 mg/dL (0.0-1.0); Blood Urea Nitrogen 15 mg/dL (9-16); Calcium 9.6 mg/dL (8.4-10.2); Carbon Dioxide 23 mmol/L (22-29); Chloride 105 mmol/L (96-108); Cholesterol 120 mg/dL (<200); Estimated Glomerular Filt Rate > 60; Glucose Fasting 126 mg/dL (60-99); HDL Cholesterol 33 mg/dL (>40); LDL Cholesterol Calculated 59 mg/dL (<100); Potassium 4.4 mmol/L (3.3-5.1); Sodium 138 mmol/L (135-145); Triglycerides 142 mg/dL (<150)
[2024-01-20 10:11] LABS: Prostate Specific Antigen 6.63 ng/mL (<0.05-4.0)
== END 2024-01-20 08:16 | disposition home or self-care (01) ==
LOC: HO.LAB 08:15
PROVIDERS: PCP Internal Medicine Medical Oncology; Visit Provider Internal Medicine Medical Oncology
DX: E66.9 Obesity, unspecified (principal); E78.5 Hyperlipidemia, unspecified; R97.20 Elevated prostate specific antigen [PSA]; E11.9 Type 2 diabetes mellitus without complications; Z12.5 Encounter for screening for malignant neoplasm of prostate
CPT/HCPCS: 36415; 80053; 80061; 82043; 82570; 83036; 84153; 85025

== ENCOUNTER 2024-04-21 08:12 | Outpatient (REF) | payer MEDICARE, SELFPAY ==
[2024-04-21 08:30] LABS: MANUAL DIFF FLAG NO
[2024-04-21 09:04] LABS: Basophils Percent Auto 0.5 % (0-2); Eosinophils Absolute Auto 0.2 X10*3/uL (0.0-0.4); Eosinophils Percent Auto 2.5 % (0-4); Hematocrit 48.2 % (42.0-52.0); Hemoglobin 16.4 g/dl (14.0-18.0); Imm Gran Abs Auto 0.02 X10*3/uL (0.00-0.03); Imm Gran Pct Auto 0.3 % (0.0-0.4); Lymphocytes Absolute Auto 2.2 X10*3/uL (1.2-4.9); Lymphocytes Percent Auto 29.6 % (20-40); Mean Corpuscular Hemoglobin 31.2 pg (27.0-33.0); Mean Corpuscular Volume 91.6 fL (80.0-98.0); Mean Platelet Volume 9.2 fL (9.4-12.4); Monocytes Absolute Auto 0.7 X10*3/uL (0.1-1.2); Monocytes Percent Auto 9.5 % (2-11); Neutrophils Absolute Auto 4.2 x10*3/uL (2.0-8.3); Neutrophils Percent Auto 57.6 % (45-73); Platelet Count 215 X10*3/uL (160-400); Red Blood Count 5.26 X10*6/uL (4.60-5.80); Red Cell Distribution Width 13.7 % (11.0-16.0); White Blood Count 7.3 X10*3/uL (4.8-10.8)
[2024-04-21 09:39] LABS: Alanine Aminotransferase 18 U/L (0-40); Albumin Level 4.2 g/dL (3.5-5.0); Alkaline Phosphatase 76 U/L (39-117); Anion Gap 16 (12-20); Aspartate Amino Transferase 21 U/L (5-37); Bilirubin Total 1.4 mg/dL (0.0-1.0); Blood Urea Nitrogen 21 mg/dL (9-16); Calcium 9.6 mg/dL (8.4-10.2); Carbon Dioxide 21 mmol/L (22-29); Chloride 107 mmol/L (96-108); Cholesterol 115 mg/dL (<200); Estimated Glomerular Filt Rate > 60; Glucose Fasting 154 mg/dL (60-99); HDL Cholesterol 33 mg/dL (>40); LDL Cholesterol Calculated 57 mg/dL (<100); Potassium 4.2 mmol/L (3.3-5.1); Sodium 140 mmol/L (135-145); Triglycerides 126 mg/dL (<150)
[2024-04-23 14:42] LABS: Free Prostate Spec Ag 1.4 ng/mL; Percent Free Prostate Spec Ag 23 % (calc) (>25)
== END 2024-04-21 08:13 | disposition home or self-care (01) ==
LOC: HO.LAB 08:12
PROVIDERS: PCP Internal Medicine Medical Oncology; Visit Provider Internal Medicine Medical Oncology
DX: I25.10 Atherosclerotic heart disease of native coronary artery without angina pectoris (principal); E66.9 Obesity, unspecified; I10 Essential (primary) hypertension; E11.9 Type 2 diabetes mellitus without complications; N40.0 Benign prostatic hyperplasia without lower urinary tract symptoms; R97.20 Elevated prostate specific antigen [PSA]
CPT/HCPCS: 36415; 80053; 80061; 84154; 85025

== ENCOUNTER 2024-07-21 08:18 | Outpatient (REF) | payer MEDICARE, SELFPAY ==
[2024-07-21 08:43] LABS: MANUAL DIFF FLAG NO
--- OUTSIDE RECORDS SUMMARY | 2024-07-21 08:47 | XMS_ITS ---
Author Organization Ehsan Perez III, MD Address [address] [place] [address] [place] [address] Care Team Providers Care Computer Field Technician Name Role Phone Ehsan Perez Primary Care Provider REASON FOR VISIT new order for labs mailed to pt Social History Sex Assigned At : Social History Observation Description Sex Assigned At Male Encounters Encounter Location Date Provider Diagnosis Ehsan Perez III, MD [address] [place] [address] [place] [address] 02/02/2024 Ehsan Perez Coronary artery disease I25.10 ; Obesity E66.9 ; Essential hypertension I10 ; Diabetes E11.9 ; Benign prostatic hyperplasia, unspecified whether lower urinary tract symptoms present N40.0 and Elevated PSA R97.20 Assessments Encounter Date Diagnosis (ICD Code) Assessment Notes Treat ment Notes Treatment Clinical Notes 02/02/2024 Coronary artery disease (ICD-10 - I25.10) 02/02/2024 Obesity (ICD-10 - E66.9) 02/02/2024 Essential hypertension (ICD-10 - I10) 02/02/2024 Diabetes (ICD-10 - E11.9) 02/02/2024 Benign prostatic hyperplasia, unspecified whether lower urinary tract symptoms present (ICD-10 - N40.0) 02/02/2024 Elevated PSA (ICD-10 - R97.20) Plan Of Treatment Pending Test Test Name Order Date PROFILE, FASTING (COMPREHENSIVE METABOLI C) 02/02/2024 LIPID PANEL 02/02/2024 CBC w DIFF 02/02/2024 PSA Free and Total 02/02/2024 Next Appt Details Provider Name:Ehsan Perez, 07/26/2024 10:30:00 AM, [address] [place] [address] [address], [place], [address], Provider Name:Ehsan Perez, 01/27/2025 10:00:00 AM, [address] [place] [address] [address], [place], [address], Progress Notes * Fred LOCKEOB:1940 ( 84 yo M)Acc No.[id number]:02/02/2024 Patient:Ramakrishna Walters :1940???Age:84 Y???Sex:Male Address:[address] [place] [id number] Subjective: * Chief Complaints: * ???New order for labs mailed to pt * Medical History:? * Surgical History:? * Hospitalization/Major Diagno stic Procedure:? * Medications:? Objective: Assessment: * Assessment: 1.?Coronary artery disease - I25.10?2.?Obesity - E66.9?3.?Essential hypertension - I10?4.?Diabetes - E11.9?5.?Benign prostatic hyperplasia, unspecified whether lower urinary tract symptoms present - N40.0?6.?Elevated PSA - R97.20? Plan: * Treatment: 2.?Obesity?LAB: PROFILE, FASTING (COMPREHENSIVE METABOLIC) ?LAB: LIPID PANEL ?LAB: CBC w DIFF ?LAB: PSA Free and Total 3.?Essential hypertension?LAB: PROFILE, FASTING (COMPREHENSIVE METABOLIC) ?LAB: LIPID PANEL ?LAB: CBC w DIFF ?LAB: PSA Free and Total 4.?Diabetes?LAB: PROFILE, FASTING (COMPREHENSIVE METABOLIC) ?LAB: LIPID PANEL ?LAB: CBC w DIFF ?LAB: PSA Free and Total 5.?Benign prostatic hyperpla bryson, unspecified whether lower urinary tract symptoms present?LAB: PROFILE, FASTING (COMPREHENSIVE METABOLIC) ?LAB: LIPID PANEL ?LAB: CBC w DIFF ?LAB: PSA Free and Total 6.?Elevated PSA?LAB: PROFILE, FASTING (COMPREHENSIVE METABOLIC) ?LAB: LIPID PANEL ?LAB: CBC w DIFF ?LAB: PSA Free and Total * Procedure Codes:? * true * Date:? Generated for Jesika venegas/Marcus/eTsonyasmitting on:?07/21/2024 08:47 AM EST
--- OUTSIDE RECORDS SUMMARY | 2024-07-21 08:47 | XMS_ITS ---
Author Organization Ehsan Perez III, MD Address [address] [place] [address] [place] [address] Care Team Providers Care Wood Flour Miller Name Role Phone Ehsan Perez Primary Care Provider Allergies Allergen (clinical drug ingredient) Drug/Non Drug Allergy documented on EMR Reaction Allergy Type Onset Date Status No Known Drug Allergy Unknown Drug Allergy Active Results Component Value Reference Range Notes URINE DIP STICK Reviewed date:01/27/2024 11:02:48 AM Interpretation: Performing Lab: Notes/Report: SG 1.030 1.005 - 1.025 pH 5.0 5.0 - 9.0 CHANEL 15 Negative - NIT Negative Negative - PRO 15 Negative - Trace GLU Negative Negative - KET 5 Negative - UBG 0.2 0.1 - 1.8 WILLIAM Negative 0.2 - 1.3 BLD Negative Negative - Menstrating N/A REASON FOR VISIT Annual Exam Medications Medication SIG (Take, Route, Frequency, Duration) Notes Start Date End Date Status Accu-Chek Jeanette Plus w/Device as directed In Vitro Check blood glucose on Friday, Friday, Friday01/07/2020 Active Atorvastatin Calcium 20 MG 1 tablet Oral Once a day Active Lisinopril-hydroCHLOROthiaz jae 10-12.5 MG 1 tablet Orally Once a day Active Aspirin 325 MG 1 tablet Orally Once a day Active Metoprolol Succinate 50 MG 1 tablet Oral ly Once a day Active Donepezil HCl 10 MG 1 tablet at bedtime Orally Once a day for 90 days Active Furosemide 20 MG 1 tablet Orally Once a day Active OneTouch Ultra - as directed In Vitro use 1 strip to check blood sugar on Friday /Friday/ Friday09/09/2022 Active OneTouch Delica Lancets Fine 30G USE DIRECTED FOR TESTING BLOOD SUGARS FASTING ON MONDAYS, WEDNESDAYS, AND FRIDAYS Active metFORMIN HCl 500 MG TAKE 1 TABLET BY [facility] ONCE DAILY WITH A MEAL Active Gabapentin 100 MG Orally Ac tive Pantoprazole Sodium 40 MG 1 tablet Orall y Once a day Active Social History Tobacco Use: Social History Observation Description Date Details (start date - stop date) Never Smoker NA - NA Sex Assigned At : Social History Observation Description Sex Assigned At Male Tobacco Use/Smoking Question Answer Notes Patient is a nonsmoker Additional Findings: Tobacco Non-User Aggressive non-smoker Alcohol Screen Question Answer Notes Did you have a drink containing alcohol in the p ast year? No Points 0 Interpretation Negative Problems Problem Type SNOMED Code ICD Code Onset Dates Problem Status W/U Status Risk Notes Problem [id number] Mild dementia with agitation, unspecified dementia type (F03.A11) Active confirmed He has become increasingly for doubtful times and places. He has shown some agitation home with anger, throwing things and using language. After discussing this with him and his we have begun him on donepezil. Vital Signs Temperature 97.2 degrees Fahrenheit 01/27/20 24 Blood pressure systolic 142 mm Hg 01/27/20 24 Blood pressure diastolic 79 mm Hg 024 Heart Rate 94 /min 01/27/2024 Height 66 in 01/27/2024 Weight 203 lbs 01/27/2024 BMI 32.76 kg/m2 01/27/2024 Encounters Encounter Location Date Provider Diagnosis Ehsan Perez III, MD [address] [place] [address] [place] [id number] 01/27/2024 Ehsan Perez Obesity E66.9 ; Hyperlipidemia E78.5 ; Diabetes E11.9 ; Benign prostatic hyperplasia, unspecified whether lower urinary tract symptoms present N40.0 ; Coronary artery disease I25.10 ; Elevated PSA R97.20 and Mild dementia with agitation, unspecified dementia type F03.A11 Assessments Encounter Date Diagnosis (ICD Code) Assessment Notes Treat ment Notes Treatment Clinical Notes 01/27/2024 Obesity (ICD-10 - E66.9) His body mass index is stable at 32.76. We discussed weight reduction strategies. We discussed diet and nutrition today. He made a plan to lose weight at a rate of one half of a pound per week. 01/27/2024 Hyperlipidemia (ICD-10 - E78.5) His lipid profile shows him to be in his target range and no change in his medication was necessary. 01/27/2024 Diabetes (ICD-10 - E11.9) His hemoglobin A1c was 5.5. No change in his medication was made. I strongly recommended adherence to a diabetic diet, exercise and reduction in calories. 01/27/2024 Benign prostatic hyperplasia, unspecified whether lower urinary tract symptoms present (ICD-10 - N40.0) He rises from sleep once a night to urinate. We discussed lifestyle modifications he could make to reduce nocturia. 01/27/2024 Coronary artery disease (ICD-10 - I25.10) He has had no exertional angina since his last visit. He is able to conduct all of the activities of daily life without chest pain. 01/27/2024 Elevated PSA (ICD-10 - R97.20) He had to PSA determinations in 2022. They were 5.95 and 5.85. His PSA currently is 6.63. His prostate exam is unremarkable. I offered to refer him for urologic examination but he declined saying he did not wish to have a biopsy at this time. He is amenable to active surveillance. 01/27/2024 Mild dementia with agitation, unspecified dementia type (ICD-10 - F03.A11) He has become increasingly for doubtful times and places. He has shown some agitation home with anger, throwing things and using language. After discussing this with him and his we have begun him on donepezil. Plan Of Treatment Medication Medication Name Sig Start Date Stop Date Notes Accu-Chek Jeanette Plus w/Device as directe d In Vitro Check blood glucose on Friday, Friday, Friday01/07/2020 Atorvastatin Calcium 20 MG 1 tablet Oral Once a day Lisinopril-hydroCHLOROthiazi de 10-12.5 MG 1 tablet Orally Once a day Aspirin 325 MG 1 tablet Orally Once a day Metoprolol Succinate 50 MG 1 tablet Orally Once a day Donepezil HCl 10 MG 1 tablet at bedtime Orally Once a day for 90 days Furosemide 20 MG 1 tablet Orally Once a day OneTouch Ultra - as directed In Vitro use 1 strip to check blood sugar on Friday /Friday/ Friday09/09/2022 OneTouch Delica Lancets Fine 30G USE DIRECTED FOR TESTING BLOOD SUGARS FASTING ON MONDAYS, WEDNESDAYS, AND FRIDAYS metFORMIN HCl 500 MG TAKE 1 TABLET BY [facility] ONCE DAILY WITH A MEAL Gabapentin 100 MG Orally Pantoprazole Sodium 40 MG 1 tablet Orally Once a day Pending Test Test Name Order Date PROFILE, FASTING (COMPREHENSIVE METABOLI C) 01/27/2024 PSA, TOTAL+FREE 01/27/2024 CBC WITH AUTO DIFF 01/27/2024 Lipid Panel 01/27/2024 Next Appt Details Follow Up: 3 Months, Reason: OV Provider Name:Ehsan Perez, 07/26/2024 10:30:00 AM, [address] [place] [address] [address], [place], [address], Provider Name:Ehsan Perez, 01/27/2025 10:00:00 AM, [address] [place] [address] [place], [address], Progress Notes * Fred LOCKEOB:1940 ( 83 yo M)Acc No.[id number]:01/27/2024 Progress Notes Patient:?Chucky Ramakrishna Provider:?Ehsan Perez MD :1940???Age:83 Y???Sex:Male Omar e:01/27/2024 Address:[place], [id number] Subjective: * Chief Complaints: * ???Annual Exam * HPI: ???Depression Screening:? He returns to the office at the age of 83 for his annual physical examination. He had no new complaints and has been compliant with his medications. He complains of nocturia once a night. We discussed lifestyle modifications he could make to reduce nocturia. He has had no angina. The pain from the fractured right ribs has resolved. His diabetic control is excellent with a low hemoglobin A1c. He has been having increasing difficulty with memory and his has been caring for him. He was begun today on donepezil after a long discussion with his and himself to try and slow down progression of dementia. This condition is mild at present. It is limited to memory deficits. ?PHQ-9?Little interest or pleasure in doing things?Nearly every day ?Feeling down, depressed, or hopeless?Not at all ?Trouble falling or staying asleep, or sleeping too much?Nearly every day ?Feeling tired or having little energy?Not at all ?Poor appetite or overeating?Not at all ?Feeling bad about yourself or that you are a failure, or have let yourself or your family down?Not at all ?Trouble concentrating on things, such as reading the newspaper or watching television?Not at all ?Moving or speaking so slowly that other people could have noticed; or the opposite, being so fidgety or restless that you have been moving around a lot more than usual?Not at all ?Thoughts that you would be better off or of hurting yourself in some way?Nearly every day (Consider Suicide Assessment Risk) ?Total Score?9 ?Interpretation?Mild Depression ???COVID-19 Screening:?Questions?Have you experienced fever, chills, cough, sore throat, shortness of breath, difficulty breathing, muscle aches, loss of taste or smell??No ?Have you been exposed to the virus within the last 10 days??No ?Have you travelled internationally in the last 10 days??No ?Have you been exposed to COVID-19 in the past??No ???SDOH Questions:?SDOH Questions?In the past year have you been worried about losing your housing??No ?In the past year have you or any family members you live with been unable to get any of the following when it was really needed? Check all that apply:?None * ROS:?General/Constitutional:?pain?only normal aches and pains.?Chills?denies.?Fatigue?admits.?Fever?denies.?ENT:?Decreased hearing?mild.?Respiratory:?Cough?denies.?Cardiovascular:?Chest pain with exertion?denies.?Dyspnea on exertion?denies.?Shortness of breath?denies.?Gastrointestinal:?Constipation?occasional.?Decreased appetite?denies.?Diarrhea?denies.?Heartburn?denies.?Nausea?denies.?Rectal bleeding?denies.?Vomiting?denies.?Hematology:?bruising?denies.?petechiae?denies.?Swollen glands?none have been noted.?Genitourinary:?Frequent urination?once a night.?Musculoskeletal:?Muscle aches?denies.?Painful joints?denies.?Sciatica?denies.?Weakness?denies.?Skin:?Itching?denies.?Rash?denies.?Skin lesion(s)?denies.?Neurologic:?Difficulty speaking?denies.?Dizziness?denies.?Headache?denies.?Low back pain?denies.?Psychiatric:?Depressed mood?denies.? * Medical History:? * Surgical History:?appendecto my inguinal herniorrhaphy three-vessel coronary artery bypass grafting rib fractures with surgical repair surgical repair right-sided flail chest 01/2017 * Hospitalization/Major Diagno stic Procedure:?Denies Past Hospitalization * Family History:?Father: dece ased 40 yrs, myocardial infarction.?Mother: 85 yrs, hypertension, diagnosed with HTN.?3 brother(s) . .? A brother has had 3 strokes but is still living. Two other brothers are alive and well. He has no children. * Social History:?Tobacco Use:?Tobacco Use/Smoking?Patient is a?nonsmoker ?Additional Findings: Tobacco Non-User?Aggressive non-smoker ???Drugs/Alcohol:?Drugs?Have you used drugs other than those for medical reasons in the past 12 months??No ?Alcohol Screen?Did you have a drink containing alcohol in the past year??No ?Points?0 ?Interpretation?Negative ???He was born in [place]. He has been to [place] for 25 years. He has no children. 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 * Medications:?TakingmetFORMIN HCl 500 MG Tablet TAKE 1 TABLET BY MOUTH ONCE DAILY WITH A MEAL Accu-Chek Jeanette Plus w/Device Kit as directed In Vitro Check blood glucose on Friday, Friday, FridayLisinopril-hydroCHLOROthiazide 10-12.5 MG Tablet 1 tablet Orally Once a dayAtorvastatin Calcium 20 MG Tablet 1 tablet Oral Once a dayMetoprolol Succinate 50 MG Tablet Extended Release 24 Hour 1 tablet Orally Once a dayAspirin 325 MG Tablet Delayed Release 1 tablet Orally Once a dayPantoprazole Sodium 40 MG Tablet Delayed Release 1 tablet Orally Once a dayGabapentin 100 MG Capsule Orally Furosemide 20 MG Tablet 1 tablet Orally Once a dayOneTouch Delica Lancets Fine 30G Miscellaneous USE DIRECTED FOR TESTING BLOOD SUGARS FASTING ON MONDAYS, WEDNESDAYS, AND FRIDAYS OneTouch Ultra - Strip as directed In Vitro use 1 strip to check blood sugar on Friday /Friday/ FridayMedication List reviewed and reconciled with the patientTaking metFORMIN HCl 500 MG Tablet TAKE 1 TABLET BY MOUTH ONCE DAILY WITH A MEAL Taking Accu-Chek Jeanette Plus w/Device Kit as directed In Vitro Check blood glucose on Friday, Friday, FridayTaking Lisinopril-hydroCHLOROthiazide 10- 12.5 MG Tablet 1 tablet Orally Once a dayTaking Atorvastatin Calcium 20 MG Tablet 1 tablet Oral Once a dayTaking Metoprolol Succinate 50 MG Tablet Extended Release 24 Hour 1 tablet Orally Once a dayTaking Aspirin 325 MG Tablet Delayed Release 1 tablet Orally Once a dayTaking Pantoprazole Sodium 40 MG Tablet Delayed Release 1 tablet Orally Once a dayTaking Gabapentin 100 MG Capsule Orally Taking Furosemide 20 MG Tablet 1 tablet Orally Once a dayTaking OneTouch Delica Lancets Fine 30G Miscellaneous USE DIRECTED FOR TESTING BLOOD SUGARS FASTING ON MONDAYS, WEDNESDAYS, AND FRIDAYS Taking OneTouch Ultra - Strip as directed In Vitro use 1 strip to check blood sugar on Friday /Friday/ FridayMedication List reviewed and reconciled with the patient * Allergies:?No Known Drug All ergyno[Allergies Verified] Objective: * Vitals:?Ht: 66, Wt:203, BMI: 32.76, BP:142/79, HR:94, Temp:97.2, Wt-k.08. * ???Past Orders: Lab:Prostate Specific Antige n * Order Date 01/20/2024 04/19/2023 01/16/2023 Prostate Specific Antigen 6.63?H (Ref Range: <0.05-4.0 ng/mL) 5.95?H (Ref Range: <0.05-4.0 ng/mL) 5.85?H (Ref Range: <0.05-4.0 ng/mL) * Lab:Microalbumin, Random * Order Date 01/20/2024 10/17/2023 07/16/2023 Creatinine Urine 216.39 (Ref Range: mg/dL) 228.04 (Ref Range: mg/dL) 327.93 (Ref Range: mg/dL) Microalbumin Urine 19.0 (Ref Range: mg/L) 15.0 (Ref Range: mg/L) 31.0 (Ref Range: mg/L) Microalbum Creatinine Ratio Ur 8.7 (Ref Range: <30 ug/mg cr) 6.5 (Ref Range: <30 ug/mg cr) 9.4 (Ref Range: <30 ug/mg cr) * Lab:Hemoglobin A1c * Order Date 01/20/2024 10/17/2023 07/16/2023 Hemoglobin A1c % 5.5 (Ref Range: <6.0 %) 5.8 (Ref Range: <6.0 %) 5.5 (Ref Range: <6.0 %) Estimated Average Glucose 111 (Ref Range: mg/dL) 120 (Ref Range: mg/dL) 111 (Ref Range: mg/dL) * Lab:Comprehensive Libby. Pane l Fast * Order Date 01/20/2024 10/17/2023 07/16/2023 Sodium 138 (Ref Range: 135-145 mmol/L) 136 (Ref Range: 135-145 mmol/L) 139 (Ref Range: 135-145 mmol/L) Bilirubin Total 1.4?H (Ref Range: 0.0-1.0 mg/dL) 1.6?H (Ref Range: 0.0-1.0 mg/dL) 1.2?H (Ref Range: 0.0-1.0 mg/dL) Aspartate Amino Transferase 16 (Ref Range: 5-37 U/L) 16 (Ref Range: 5-37 U/L) 24 (Ref Range: 5-37 U/L) Alanine Aminotransferase 11 (Ref Range: 0-40 U/L) 13 (Ref Range: 0-40 U/L) 22 (Ref Range: 0-40 U/L) Total Protein 7.0 (Ref Range: 6.5-8.0 g/dL) 7.1 (Ref Range: 6.5-8.0 g/dL) 7.4 (Ref Range: 6.5-8.0 g/dL) Albumin Level 4.3 (Ref Range: 3.5-5.0 g/dL) 4.2 (Ref Range: 3.5-5.0 g/dL) 4.2 (Ref Range: 3.5-5.0 g/dL) Alkaline Phosphatase 72 (Ref Range: 39-117 U/L) 73 (Ref Range: 39-117 U/L) 76 (Ref Range: 39-117 U/L) Potassium 4.4 (Ref Range: 3.3-5.1 mmol/L) 4.1 (Ref Range: 3.3-5.1 mmol/L) 4.3 (Ref Range: 3.3-5.1 mmol/L) Chloride 105 (Ref Range: 96-108 mmol/L) 106 (Ref Range: 96-108 mmol/L) 106 (Ref Range: 96-108 mmol/L) Carbon Dioxide 23 (Ref Range: 22-29 mmol/L) 20?L (Ref Range: 22-29 mmol/L) 21?L (Ref Range: 22-29 mmol/L) Anion Gap 14 (Ref Range: 12-20) 14 (Ref Range: 12-20) 16 (Ref Range: 12-20) Blood Urea Nitrogen 15 (Ref Range: 9-16 mg/dL) 15 (Ref Range: 9-16 mg/dL) 17?H (Ref Range: 9-16 mg/dL) Creatinine 1.08 (Ref Range: 0.5-1.4 mg/dL) 1.08 (Ref Range: 0.5-1.4 mg/dL) 0.97 (Ref Range: 0.5-1.4 mg/dL) Estimated Glomerular Filt Rate > 60 > 60 > 60 Glucose Fasting 126?H (Ref Range: 60-99 mg/dL) 121?H (Ref Range: 60-99 mg/dL) 129?H (Ref Range: 60-99 mg/dL) Calcium 9.6 (Ref Range: 8.4-10.2 mg/dL) 9.3 (Ref Range: 8.4-10.2 mg/dL) 9.5 (Ref Range: 8.4-10.2 mg/dL) * Lab:Complete Blood Count Aut o Diff * Order Date 01/20/2024 10/17/2023 07/16/2023 White Blood Count 6.8 (Ref Range: 4.8-10.8 X10*3/uL) 7.3 (Ref Range: 4.8-10.8 X10*3/uL) 6.9 (Ref Range: 4.8-10.8 X10*3/uL) Red Blood Count 5.16 (Ref Range: 4.60-5.80 X10*6/uL) 5.06 (Ref Range: 4.60-5.80 X10*6/uL) 5.35 (Ref Range: 4.60-5.80 X10*6/uL) Hemoglobin 16.3 (Ref Range: 14.0-18.0 g/dl) 15.9 (Ref Range: 14.0-18.0 g/dl) 16.6 (Ref Range: 14.0-18.0 g/dl) Hematocrit 46.7 (Ref Range: 42.0-52.0 %) 46.1 (Ref Range: 42.0-52.0 %) 48.6 (Ref Range: 42.0-52.0 %) Mean Corpuscular Volume 90.5 (Ref Range: 80.0-98.0 fL) 91.1 (Ref Range: 80.0-98.0 fL) 90.8 (Ref Range: 80.0-98.0 fL) Mean Corpuscular Hemoglobin 31.6 (Ref Range: 27.0-33.0 pg) 31.4 (Ref Range: 27.0-33.0 pg) 31.0 (Ref Range: 27.0-33.0 pg) Mean Corpuscular HGB Conc 34.9 (Ref Range: 31.0-36.0 g/dl) 34.5 (Ref Range: 31.0-36.0 g/dl) 34.2 (Ref Range: 31.0-36.0 g/dl) Red Cell Distribution Width 13.7 (Ref Range: 11.0-16.0 %) 13.7 (Ref Range: 11.0-16.0 %) 14.0 (Ref Range: 11.0-16.0 %) Platelet Count 181 (Ref Range: 160-400 X10*3/uL) 205 (Ref Range: 160-400 X10*3/uL) 233 (Ref Range: 160-400 X10*3/uL) Mean Platelet Volume 9.0?L (Ref Range: 9.4-12.4 fL) 8.8?L (Ref Range: 9.4-12.4 fL) 8.8?L (Ref Range: 9.4-12.4 fL) Neutrophils Percent Auto 56.2 (Ref Range: 45-73 %) 55.8 (Ref Range: 45-73 %) 63.6 (Ref Range: 45-73 %) Imm Gran Pct Auto 0.4 (Ref Range: 0.0-0.4 %) 0.1 (Ref Range: 0.0-0.4 %) 0.4 (Ref Range: 0.0-0.4 %) Lymphocytes Percent Auto 30.7 (Ref Range: 20-40 %) 31.0 (Ref Range: 20-40 %) 24.8 (Ref Range: 20-40 %) Monocytes Percent Auto 9.2 (Ref Range: 2-11 %) 9.2 (Ref Range: 2-11 %) 8.6 (Ref Range: 2-11 %) Eosinophils Percent Auto 2.8 (Ref Range: 0-4 %) 3.3 (Ref Range: 0-4 %) 1.9 (Ref Range: 0-4 %) Basophils Percent Auto 0.7 (Ref Range: 0-2 %) 0.6 (Ref Range: 0-2 %) 0.7 (Ref Range: 0-2 %) NRBC Pct Auto 0.0 (Ref Range: 0.0-0.2 /100WBC) 0.0 (Ref Range: 0.0-0.2 /100WBC) 0.0 (Ref Range: 0.0-0.2 /100WBC) Neutrophils Absolute Auto 3.8 (Ref Range: 2.0-8.3 x10*3/uL) 4.1 (Ref Range: 2.0-8.3 x10*3/uL) 4.4 (Ref Range: 2.0-8.3 x10*3/uL) Imm Gran Abs Auto 0.03 (Ref Range: 0.00-0.03 X10*3/uL) 0.01 (Ref Range: 0.00-0.03 X10*3/uL) 0.03 (Ref Range: 0.00-0.03 X10*3/uL) Lymphocytes Absolute Auto 2.1 (Ref Range: 1.2-4.9 X10*3/uL) 2.3 (Ref Range: 1.2-4.9 X10*3/uL) 1.7 (Ref Range: 1.2-4.9 X10*3/uL) Monocytes Absolute Auto 0.6 (Ref Range: 0.1-1.2 X10*3/uL) 0.7 (Ref Range: 0.1-1.2 X10*3/uL) 0.6 (Ref Range: 0.1-1.2 X10*3/uL) Eosinophils Absolute Auto 0.2 (Ref Range: 0.0-0.4 X10*3/uL) 0.2 (Ref Range: 0.0-0.4 X10*3/uL) 0.1 (Ref Range: 0.0-0.4 X10*3/uL) Basophils Absolute Auto 0.1 (Ref Range: 0.0-0.2 X10*3/uL) 0.0 (Ref Range: 0.0-0.2 X10*3/uL) 0.1 (Ref Range: 0.0-0.2 X10*3/uL) NRBC Abs Auto 0.000 (Ref Range: 0.0-0.012 X10*3/uL) 0.000 (Ref Range: 0.0-0.012 X10*3/uL) 0.000 (Ref Range: 0.0-0.012 X10*3/uL) * Lab:Lipid Panel * Order Date 01/20/2024 10/17/2023 07/16/2023 Triglycerides 142 (Ref Range: <150 mg/dL) 125 (Ref Range: <150 mg/dL) 92 (Ref Range: <150 mg/dL) Cholesterol 120 (Ref Range: <200 mg/dL) 119 (Ref Range: <200 mg/dL) 123 (Ref Range: <200 mg/dL) LDL Cholesterol Calculated 59 (Ref Range: <100 mg/dL) 61 (Ref Range: <100 mg/dL) 71 (Ref Range: <100 mg/dL) HDL Cholesterol 33?L (Ref Range: >40 mg/dL) 33?L (Ref Range: >40 mg/dL) 34?L (Ref Range: >40 mg/dL) * Examination: ???General Examination: ?GENERAL APPEARANCE:?pleasant, well nourished, well developed, in no acute distress, calm and relaxed , obese , elderly man.?HEAD:?atraumatic, normocephalic.?EYES:?eomi, perrla, anicteric, conjugate.?EARS:?normal.?NOSE:?septum intact.?ORAL CAVITY:?normal, unremarkable.?NECK/THYROID:?no jugular venous distention, no carotid bruit, thyroid normal.?LYMPH NODES:?no enlarged lymph nodes,spleen normal.?SKIN:?no suspicious lesions, anicteric.?HEART:?no clicks, gallops, murmurs, or rubs, regular rhythm, S1, S2 normal, no s3, or vascular bruits.?LUNGS:?clear to auscultation , no wheezes, rales, rhonchi , good air movement.?BREASTS:??no masses palpable bilaterally.?ABDOMEN:?bowel sounds normal, no ascites, no organomegaly, no mass , centripital obesity.?RECTAL EXAM:?, normal tone , no external hemorrhoids , no masses palpable , no melena , no red blood , prostate normal In size without nodules, median furrow preserved, not enlarged , stool guaiac negative.?MUSCULOSKELETAL:?extremities unremarkable, no clubbing, cyanosis or edema.?PERIPHERAL PULSES:?normal.?NEUROLOGIC:?alert and oriented, cranial nerves 2-12 grossly intact, deep tendon reflexes 2+ symmetrical, motor strength normal upper and lower extremities, sensory exam intact, Mild to moderate memory defects in terms of date and time..?PSYCH:?alert, oriented, Mild to moderate memory defects.? Assessment: * Assessment: 1.?Obesity - E66.9 (Primary) , His body mass index is stable at 32.76. We discussed weight reduction strategies. We discussed diet and nutrition today. He made a plan to lose weight at a rate of one half of a pound per week.?2.?Hyperlipidemia - E78.5, His lipid profile shows him to be in his target range and no change in his medication was necessary.?3.?Diabetes - E11.9, His hemoglobin A1c was 5.5. No change in his medication was made. I strongly recommended adherence to a diabetic diet, exercise and reduction in calories.?4.?Benign prostatic hyperplasia, unspecified whether lower urinary tract symptoms present - N40.0, He rises from sleep once a night to urinate. We discussed lifestyle modifications he could make to reduce nocturia.?5.?Coronary artery disease - I25.10, He has had no exertional angina since his last visit. He is able to conduct all of the activities of daily life without chest pain.?6.?Elevated PSA - R97.20, He had to PSA determinations in 2022. They were 5.95 and 5.85. His PSA currently is 6.63. His prostate exam is unremarkable. I offered to refer him for urologic examination but he declined saying he did not wish to have a biopsy at this time. He is amenable to active surveillance.?7.?Mild dementia with agitation, unspecified dementia type - F03.A11, He has become increasingly for doubtful times and places. He has shown some agitation home with anger, throwing things and using language. After discussing this with him and his we have begun him on donepezil.? Plan: * Treatment: 2.?Hyperlipidemia?LAB: PROFILE, FASTING (COMPREHENSIVE METABOLIC) ?LAB: PSA, TOTAL+FREE ?LAB: CBC WITH AUTO DIFF ?LAB: Lipid Panel 3.?Diabetes?LAB: PROFILE, FASTING (COMPREHENSIVE METABOLIC) ?LAB: PSA, TOTAL+FREE ?LAB: CBC WITH AUTO DIFF ?LAB: Lipid Panel 4.?Benign prostatic hyperpla bryson, unspecified whether lower urinary tract symptoms present?LAB: PROFILE, FASTING (COMPREHENSIVE METABOLIC) ?LAB: PSA, TOTAL+FREE ?LAB: CBC WITH AUTO DIFF ?LAB: Lipid Panel 5.?Others? Continue metFORMIN HCl Tablet, 500 MG, TAKE 1 TABLET BY MOUTH ONCE DAILY WITH A MEAL;?Continue Accu-Chek Jeanette Plus Kit, w/Device, as directed, In Vitro, Check blood glucose on Friday, Friday, Friday;?Continue Lisinopril-hydroCHLOROthiazide Tablet, 10-12.5 MG, 1 tablet, Orally, Once a day;?Continue Atorvastatin Calcium Tablet, 20 MG, 1 tablet, Oral, Once a day;?Continue Metoprolol Succinate Tablet Extended Release 24 Hour, 50 MG, 1 tablet, Orally, Once a day;?Continue Aspirin Tablet Delayed Release, 325 MG, 1 tablet, Orally, Once a day;?Continue Pantoprazole Sodium Tablet Delayed Release, 40 MG, 1 tablet, Orally, Once a day;?Continue Gabapentin Capsule, 100 MG, Orally;?Continue Furosemide Tablet, 20 MG, 1 tablet, Orally, Once a day;?Continue OneTouch Delica Lancets Fine Miscellaneous, 30G, USE DIRECTED FOR TESTING BLOOD SUGARS FASTING ON MONDAYS, WEDNESDAYS, AND FRIDAYS;?Continue OneTouch Ultra Strip, -, as directed, In Vitro, use 1 strip to check blood sugar on Friday /Friday/ Friday.?? * Labs:? * ?Lab: URINE DIP STICK ? Value Reference Range ?SG 1.030 1.005 - 1.025 * ?pH 5.0 5.0 - 9.0 * ?CHANEL 15 Negative - * ?NIT Negative Negative - * ?PRO 15 Negative - Trac e * ?GLU Negative Negative - * ?KET 5 Negative - * ?UBG 0.2 0.1 - 1.8 * ?WILLIAM Negative 0.2 - 1.3 * ?BLD Negative Negative - * ?Menstrating N/A * Procedure Codes:?19523 URINE -NO [id number] TEST FOR BLOOD, FECES * Preventive Medicine:? ??Counseling:?Care goal follow-up plan:?Counseling for abnormal BMI given?Yes ?Above Normal BMI Follow-up?Dietary management education, guidance, and counseling, Dietary needs education, Exercise promotion: strength training, Exercise promotion: stretching, Feeding regime, Giving encouragement to exercise, Lifestyle education regarding diet, Nutrition / feeding management, Nutrition therapy, Prescribed activity/exercise education, Prescribed diet education, Prescribed dietary intake, Special diet education, Weight monitoring , Intervention, Order not done: Medical or Other reason not done * Follow Up:?3 Months (Reason: OV) * Images: * Sign off status: Completed true * Provider:?Ehsan Perez MD Date:?07/2023 Generated for Jesika venegas/Marcus/eTransmitting on:?07/21/2024 08:46 AM EST History and Physical Notes * HPI (History of Present Illness) Category Sub-Category Detail Notes Depression Screening PHQ-9 Little inte rest or pleasure in doing things: Nearly every day Feeling down, depressed, or hopeless: No t at all Trouble falling or staying asleep, or sl eeping too much: Nearly every day Feeling tired or having little energy: N ot at all Poor appetite or overeating: Not at all Feeling bad about yourself o r that you are a failure, or have let yourself or your family down: Not at all Trouble concentrating on thi ngs, such as reading the newspaper or watching television: Not at all Moving or speaking so slowly that other people could have noticed; or the opposite, being so fidgety or restless that you have been moving around a lot more than usual: Not at all Thoughts that you would be b rocio off or of hurting yourself in some way: Nearly every day (Consider Suicide Assessment Risk) Total Score: 9 Interpretation: Mild Depression COVID-19 Screening Questions Have you had any new onset fever, chills, cough, congestion, sore throat, shortness of breath, muscle aches?: No Have you been exposed to the virus with n the last 10 days?: No Have you travelled internationally in last 10 days?: No Have you been exposed to COVID-19 in the past?: No SDOH Questions SDOH Questions In the past year have you been worried about losing your housing?: No In the past year have you or any family members you live with been unable to get any of the following when it was really needed? Check all that apply:: None Examination Category Sub-Category Detail Notes General Examination GENERAL APPEARANCE: pleasant , well nourished, well developed, in no acute distress, calm and relaxed , obese , elderly man HEAD: atraumatic, normocep halic EYES: eomi, perrla, anicte magdalene, conjugate EARS: normal NOSE: septum intact NECK/THYROID: no jugular venous di stention, no carotid bruit, thyroid normal HEART: no clicks, gallops, murmurs, or rubs, regular rhythm, S1, S2 normal, no s3, or vascular bruits LUNGS: clear to auscultatio n , no wheezes, rales, rhonchi , good air movement ABDOMEN: bowel sounds normal, no ascites, no organomegaly, no mass , centripital obesity NEUROLOGIC: alert and oriented, cranial nerves 2-12 grossly intact, deep tendon reflexes 2+ symmetrical, motor strength normal upper and lower extremities, sensory exam intact, Mild to moderate memory defects in terms of date and time. SKIN: no suspicious lesion s, anicteric PERIPHERAL PULSES: normal BREASTS: no masses palpable b ilaterally MUSCULOSKELETAL: extremities unremark able, no clubbing, cyanosis or edema LYMPH NODES: no enlarged lymph no dilshad,spleen normal RECTAL EXAM: , normal tone , no e xternal hemorrhoids , no masses palpable , no melena , no red blood , prostate normal In size without nodules, median furrow preserved, not enlarged , stool guaiac negative PSYCH: alert, oriented, Mil d to moderate memory defects ORAL CAVITY: normal, unremarkable
--- OUTSIDE RECORDS SUMMARY | 2024-07-21 08:47 | XMS_ITS ---
Author Organization Ehsan Perez III, MD Address [address] [place] [address] [place] [address] Care Team Providers Care School Psychologist Name Role Phone Ehsan Perez Primary Care Provider [phone] Allergies Allergen (clinical drug ingredient) Drug/Non Drug Allergy documented on EMR Reaction Allergy Type Onset Date Status No Known Drug Allergy Unknown Drug Allergy Active REASON FOR VISIT Coronary artery disease, Obesity, Hypertension, Diabetes, Benign prostatic hypertrophy Medications Medication SIG (Take, Route, Frequency, Duration) Notes Start Date End Date Status Pantoprazole Sodium 40 MG 1 tablet Orall y Once a day Active Gabapentin 100 MG Orally Ac tive Furosemide 20 MG 1 tablet Orally Once a day Active OneTouch Delica Lancets Fine 30G USE DIRECTED FOR TESTING BLOOD SUGARS FASTING ON MONDAYS, WEDNESDAYS, AND FRIDAYS Active OneTouch Ultra - as directed In Vitro use 1 strip to check blood sugar on Friday /Friday/ Friday09/09/2022 Active Accu-Chek Jeanette Plus w/Device as directed In Vitro Check blood glucose on Friday, Friday, Friday01/07/2020 Active Lisinopril-hydroCHLOROthiaz jae 10-12.5 MG 1 tablet Orally Once a day Active Atorvastatin Calcium 20 MG 1 tablet Oral Once a day Active Metoprolol Succinate 50 MG 1 tablet Oral ly Once a day Active Aspirin 325 MG 1 tablet Orally Once a day Active metFORMIN HCl 500 MG TAKE 1 TABLET BY [facility] ONCE DAILY WITH A MEAL Active Donepezil HCl 10 MG 1 tablet at bedtime Orally Once a day Active Social History Tobacco Use: Social History Observation Description Date Details (start date - stop date) Never Smoker NA - NA Sex Assigned At : Social History Observation Description Sex Assigned At Male Tobacco Use/Smoking Question Answer Notes Patient is a nonsmoker Additional Findings: Tobacco Non-User Aggressive non-smoker Vital Signs Temperature 97.2 degrees Fahrenheit 04/27/20 24 Blood pressure systolic 95 mm Hg 04/27/20 24 Blood pressure diastolic 64 mm Hg 024 Heart Rate 85 /min 04/27/2024 Height 66 in 04/27/2024 Weight 199 lbs 04/27/2024 BMI 32.12 kg/m2 04/27/2024 Encounters Encounter Location Date Provider Diagnosis Ehsan Perez III, MD [address] [place] [address] [address] [place] [address] 04/27/2024 Ehsan Perez Obesity E66.9 ; Kaela nary artery disease I25.10 ; Diabetes E11.9 ; Hyperlipidemia E78.5 ; Essential hypertension I10 ; Benign prostatic hyperplasia, unspecified whether lower urinary tract symptoms present N40.0 and Multiple rib fractures involving four or more ribs S22.49XA Assessments Encounter Date Diagnosis (ICD Code) Assessment Notes Treat ment Notes Treatment Clinical Notes 04/27/2024 Obesity (ICD-10 - E66.9) His body mass index is stable at 32.12. We discussed weight reduction strategies. We discussed diet and nutrition today. He made a plan to lose weight at a rate of one half of a pound per week. 04/27/2024 Coronary artery disease (ICD-10 - I25.10) He has had no exertional angina since his last visit. He is able to conduct all of the activities of daily life without chest pain. 04/27/2024 Diabetes (ICD-10 - E11.9) His fasting glucoses 154. A hemoglobin A1c and microalbumin have been ordeered prior to his next visit. He is compliant with his treatment. He has lost 4 pounds. No change in his medications was made today. 04/27/2024 Hyperlipidemia (ICD-10 - E78.5) His total cholesterol is 115. He is compliant with his treatment and has lost 4 pounds. Discussed diet and nutrition at length today. 04/27/2024 Essential hypertension (ICD-10 - I10) His blood pressure is lower than usual but he is asymptomatic.. No change in his regimen was needed. I strongly recommend aggressive sodium restriction and ongoing weight loss. 04/27/2024 Benign prostatic hyperplasia, unspecified whether lower urinary tract symptoms present (ICD-10 - N40.0) He rises from sleep once a night to urinate. We discussed lifestyle modifications he could make to reduce nocturia. 04/27/2024 Multiple rib fractures involving four or more ribs (ICD-10 - S22.49XA) The area has healed and he is breathing comfortably. He has a long vertical scar over his right chest wall but it is not painful when he coughs and sneezes. Plan Of Treatment Medication Medication Name Sig Start Date Stop Date Notes Pantoprazole Sodium 40 MG 1 tablet Orally Once a day Gabapentin 100 MG Orally Furosemide 20 MG 1 tablet Orally Once a day OneTouch Delica Lancets Fine 30G USE DIRECTED FOR TESTING BLOOD SUGARS FASTING ON MONDAYS, WEDNESDAYS, AND FRIDAYS OneTouch Ultra - as directed In Vitro use 1 strip to check blood sugar on Friday /Friday/ Friday09/09/2022 Accu-Chek Jeanette Plus w/Device as directe d In Vitro Check blood glucose on Friday, Friday, Friday01/07/2020 Lisinopril-hydroCHLOROthiazi de 10-12.5 MG 1 tablet Orally Once a day Atorvastatin Calcium 20 MG 1 tablet Oral Once a day Metoprolol Succinate 50 MG 1 tablet Orally Once a day Aspirin 325 MG 1 tablet Orally Once a day metFORMIN HCl 500 MG TAKE 1 TABLET BY [facility] ONCE DAILY WITH A MEAL Donepezil HCl 10 MG 1 tablet at bedtime Orally Once a day Pending Test Test Name Order Date PROFILE, FASTING (COMPREHENSIVE METABOLI C) 04/27/2024 CBC WITH AUTO DIFF 04/27/2024 Lipid Panel 04/27/2024 Microalbumin, Random 04/27/2024 Hemoglobin A1c 04/27/2024 Next Appt Details Follow Up: 3 Months, 18th of this month, Reason: OV, Eye check-up Provider Name:Ehsan Perez, 07/26/2024 10:30:00 AM, [address] [place] [address] [place], [place], [id number], Provider Name:Ehsan Perez, 01/27/2025 10:00:00 AM, [address] [place] [address] [place], [place], [id number], Progress Notes * Fred LOCKEOB:1940 ( 84 yo M)Acc No.[id number]:04/27/2024 Progress Notes Patient:?Ramakrishna LOCKE Provider:?Ehsan Perez MD :1940???Age:84 Y???Sex:Male Omar e:04/27/2024 Address:[address] [place] [address] [place]ary [id number] Subjective: * Chief Complaints: * ???Coronary artery diseaseOb esityHypertensionDiabetesBenign prostatic hypertrophy * HPI: ???COVID-19 Screening:?Questions?Have you experienced fever, chills, cough, sore throat, shortness of breath, difficulty breathing, muscle aches, loss of taste or smell??No ?Have you been exposed to the virus within the last 10 days??No ?Have you travelled internationally in the last 10 days??No ?Have you been exposed to COVID-19 in the past??No ???:? The patient, an 84-year-old male, reported no trouble breathing or chest pains. He mentioned that he sleeps well, going to bed around 11:00 PM and sometimes taking a nap in the afternoon. He has been maintaining good blood glucose levels, with the highest recorded level being 133 and the lowest being 114. He has not consumed vodka for over two months. He recently had an eye test and was told that one eye was a little weaker than the other and watered a bit, but there was nothing seriously wrong. He has an upcoming appointment with the eye doctor on the of the month. The patient also mentioned having rib fractures, but they do not cause him any discomfort. Blood Sugar Level is 154. * ROS:?General/Constitutional:?pain?only normal aches and pains.?Chills?denies.?Fatigue?admits.?Fever?denies.?ENT:?Decreased hearing?in both ears.?Respiratory:?Cough?denies.?Cardiovascular:?Chest pain with exertion?denies.?Dyspnea on exertion?denies.?Shortness of breath?denies.?Gastrointestinal:?Constipation?occasional.?Decreased appetite?denies.?Diarrhea?denies.?Heartburn?denies.?Nausea?denies.?Rectal bleeding?denies.?Vomiting?denies.?Hematology:?bruising?denies.?petechiae?denies.?Swollen glands?none have been noted.?Genitourinary:?Frequent urination?once a night.?Musculoskeletal:?Muscle aches?denies.?Painful joints?denies.?Sciatica?denies.?Weakness?denies.?Skin:?Itching?denies.?Rash?denies.?Skin lesion(s)?denies.?Neurologic:?Difficulty speaking?denies.?Dizziness?denies.?Headache?denies.?Low back pain?denies.?Psychiatric:?Depressed mood?denies.? * Medical History:? * Surgical History:?appendecto my inguinal herniorrhaphy three-vessel coronary artery bypass grafting rib fractures with surgical repair surgical repair right-sided flail chest 01/2017No history * Hospitalization/Major Diagno stic Procedure:?No history * Family History:?Father: dece ased 40 yrs, myocardial infarction.?Mother: 85 yrs, hypertension, diagnosed with HTN.?3 brother(s) . .? A brother has had 3 strokes but is still living. Two other brothers are alive and well. He has no children. * Social History:?Tobacco Use:?Tobacco Use/Smoking?Patient is a?nonsmoker ?Additional Findings: Tobacco Non-User?Aggressive non-smoker ???He was born in [place]. He has been to [place] for 25 years. He has no children. 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 * Medications:?TakingmetFORMIN HCl 500 MG Tablet TAKE 1 TABLET BY MOUTH ONCE DAILY WITH A MEAL Accu-Chek Jeanette Plus w/Device Kit as directed In Vitro Check blood glucose on Friday, Friday, Friday Lisinopril-hydroCHLOROthiazide 10-12.5 MG Tablet 1 tablet Orally Once a day Atorvastatin Calcium 20 MG Tablet 1 tablet Oral Once a day Metoprolol Succinate 50 MG Tablet Extended Release 24 Hour 1 tablet Orally Once a day Aspirin 325 MG Tablet Delayed Release 1 tablet Orally Once a day Pantoprazole Sodium 40 MG Tablet Delayed Release 1 tablet Orally Once a day Gabapentin 100 MG Capsule Orally Furosemide 20 MG Tablet 1 tablet Orally Once a day OneTouch Delica Lancets Fine 30G Miscellaneous USE DIRECTED FOR TESTING BLOOD SUGARS FASTING ON MONDAYS, WEDNESDAYS, AND FRIDAYS OneTouch Ultra - Strip as directed In Vitro use 1 strip to check blood sugar on Friday /Friday/ Friday Donepezil HCl 10 MG Tablet 1 tablet at bedtime Orally Once a day Medication List reviewed and reconciled with the patientTaking metFORMIN HCl 500 MG Tablet TAKE 1 TABLET BY MOUTH ONCE DAILY WITH A MEAL Taking Accu-Chek Jeanette Plus w/Device Kit as directed In Vitro Check blood glucose on Friday, Friday, Friday Taking Lisinopril-hydroCHLOROthiazide 10- 12.5 MG Tablet 1 tablet Orally Once a day Taking Atorvastatin Calcium 20 MG Tablet 1 tablet Oral Once a day Taking Metoprolol Succinate 50 MG Tablet Extended Release 24 Hour 1 tablet Orally Once a day Taking Aspirin 325 MG Tablet Delayed Release 1 tablet Orally Once a day Taking Pantoprazole Sodium 40 MG Tablet Delayed Release 1 tablet Orally Once a day Taking Gabapentin 100 MG Capsule Orally Taking Furosemide 20 MG Tablet 1 tablet Orally Once a day Taking OneTouch Delica Lancets Fine 30G Miscellaneous USE DIRECTED FOR TESTING BLOOD SUGARS FASTING ON MONDAYS, WEDNESDAYS, AND FRIDAYS Taking OneTouch Ultra - Strip as directed In Vitro use 1 strip to check blood sugar on Friday /Friday/ Friday Taking Donepezil HCl 10 MG Tablet 1 tablet at bedtime Orally Once a day Medication List reviewed and reconciled with the patient * Allergies:?No Known Drug All ergyno[Allergies Verified] Objective: * Vitals:?Ht: 66, Wt:199, BMI: 32.12, BP:95/64, HR:85, Temp:97.2, Wt-k.26. * ???Past Orders: Lab:URINE DIP STICK * Collection Date 01/27/2024 01/22/2023 01/21/2022 Collection Time 10:12 AM Order Date 01/27/2024 01/22/2023 01/21/2022 SG 1.030 (Ref Range: 1.005 - 1.025) 1.025 (Ref Range: 1.005 - 1.025) 1.030 pH 5.0 (Ref Range: 5.0 - 9.0) 5.0 (Ref Range: 5.0 - 9.0) 5.0 CHANEL 15 (Ref Range: Negative -) Negative (Ref Range: Negative -) Negative NIT Negative (Ref Range: Negative -) Negative (Ref Range: Negative -) Negative PRO 15 (Ref Range: Negative - Trace) 15 (Ref Range: Negative - Trace) 0.15 GLU Negative (Ref Range: Negative -) Negative (Ref Range: Negative -) Negative KET 5 (Ref Range: Negative -) 5 (Ref Range: Negative -) 0.5 UBG 0.2 (Ref Range: 0.1 - 1.8) 4 (Ref Range: 0.1 - 1.8) 0.2 WILLIAM Negative (Ref Range: 0.2 - 1.3) Negative (Ref Range: 0.2 - 1.3) Negative BLD Negative (Ref Range: Negative -) Negative (Ref Range: Negative -) Negative Menstrating N/A N/A N/A * Lab:Complete Blood Count Aut o Diff * Collection Date 04/21/2024 01/20/2024 10/17/2023 Collection Time 08:28 AM 08:41 AM 08:32 AM Order Date 04/21/2024 01/20/2024 10/17/2023 White Blood Count 7.3 (Ref Range: 4.8-10.8 X10*3/uL) 6.8 (Ref Range: 4.8-10.8 X10*3/uL) 7.3 (Ref Range: 4.8-10.8 X10*3/uL) Red Blood Count 5.26 (Ref Range: 4.60-5.80 X10*6/uL) 5.16 (Ref Range: 4.60-5.80 X10*6/uL) 5.06 (Ref Range: 4.60-5.80 X10*6/uL) Hemoglobin 16.4 (Ref Range: 14.0-18.0 g/dl) 16.3 (Ref Range: 14.0-18.0 g/dl) 15.9 (Ref Range: 14.0-18.0 g/dl) Hematocrit 48.2 (Ref Range: 42.0-52.0 %) 46.7 (Ref Range: 42.0-52.0 %) 46.1 (Ref Range: 42.0-52.0 %) Mean Corpuscular Volume 91.6 (Ref Range: 80.0-98.0 fL) 90.5 (Ref Range: 80.0-98.0 fL) 91.1 (Ref Range: 80.0-98.0 fL) Mean Corpuscular Hemoglobin 31.2 (Ref Range: 27.0-33.0 pg) 31.6 (Ref Range: 27.0-33.0 pg) 31.4 (Ref Range: 27.0-33.0 pg) Mean Corpuscular HGB Conc 34.0 (Ref Range: 31.0-36.0 g/dl) 34.9 (Ref Range: 31.0-36.0 g/dl) 34.5 (Ref Range: 31.0-36.0 g/dl) Red Cell Distribution Width 13.7 (Ref Range: 11.0-16.0 %) 13.7 (Ref Range: 11.0-16.0 %) 13.7 (Ref Range: 11.0-16.0 %) Platelet Count 215 (Ref Range: 160-400 X10*3/uL) 181 (Ref Range: 160-400 X10*3/uL) 205 (Ref Range: 160-400 X10*3/uL) Mean Platelet Volume 9.2?L (Ref Range: 9.4-12.4 fL) 9.0?L (Ref Range: 9.4-12.4 fL) 8.8?L (Ref Range: 9.4-12.4 fL) Neutrophils Percent Auto 57.6 (Ref Range: 45-73 %) 56.2 (Ref Range: 45-73 %) 55.8 (Ref Range: 45-73 %) Imm Gran Pct Auto 0.3 (Ref Range: 0.0-0.4 %) 0.4 (Ref Range: 0.0-0.4 %) 0.1 (Ref Range: 0.0-0.4 %) Lymphocytes Percent Auto 29.6 (Ref Range: 20-40 %) 30.7 (Ref Range: 20-40 %) 31.0 (Ref Range: 20-40 %) Monocytes Percent Auto 9.5 (Ref Range: 2-11 %) 9.2 (Ref Range: 2-11 %) 9.2 (Ref Range: 2-11 %) Eosinophils Percent Auto 2.5 (Ref Range: 0-4 %) 2.8 (Ref Range: 0-4 %) 3.3 (Ref Range: 0-4 %) Basophils Percent Auto 0.5 (Ref Range: 0-2 %) 0.7 (Ref Range: 0-2 %) 0.6 (Ref Range: 0-2 %) NRBC Pct Auto 0.0 (Ref Range: 0.0-0.2 /100WBC) 0.0 (Ref Range: 0.0-0.2 /100WBC) 0.0 (Ref Range: 0.0-0.2 /100WBC) Neutrophils Absolute Auto 4.2 (Ref Range: 2.0-8.3 x10*3/uL) 3.8 (Ref Range: 2.0-8.3 x10*3/uL) 4.1 (Ref Range: 2.0-8.3 x10*3/uL) Imm Gran Abs Auto 0.02 (Ref Range: 0.00-0.03 X10*3/uL) 0.03 (Ref Range: 0.00-0.03 X10*3/uL) 0.01 (Ref Range: 0.00-0.03 X10*3/uL) Lymphocytes Absolute Auto 2.2 (Ref Range: 1.2-4.9 X10*3/uL) 2.1 (Ref Range: 1.2-4.9 X10*3/uL) 2.3 (Ref Range: 1.2-4.9 X10*3/uL) Monocytes Absolute Auto 0.7 (Ref Range: 0.1-1.2 X10*3/uL) 0.6 (Ref Range: 0.1-1.2 X10*3/uL) 0.7 (Ref Range: 0.1-1.2 X10*3/uL) Eosinophils Absolute Auto 0.2 (Ref Range: 0.0-0.4 X10*3/uL) 0.2 (Ref Range: 0.0-0.4 X10*3/uL) 0.2 (Ref Range: 0.0-0.4 X10*3/uL) Basophils Absolute Auto 0.0 (Ref Range: 0.0-0.2 X10*3/uL) 0.1 (Ref Range: 0.0-0.2 X10*3/uL) 0.0 (Ref Range: 0.0-0.2 X10*3/uL) NRBC Abs Auto 0.000 (Ref Range: 0.0-0.012 X10*3/uL) 0.000 (Ref Range: 0.0-0.012 X10*3/uL) 0.000 (Ref Range: 0.0-0.012 X10*3/uL) * Lab:Lipid Panel * Collection Date 04/21/2024 01/20/2024 10/17/2023 Collection Time 08:28 AM 08:41 AM 08:32 AM Order Date 04/21/2024 01/20/2024 10/17/2023 Triglycerides 126 (Ref Range: <150 mg/dL) 142 (Ref Range: <150 mg/dL) 125 (Ref Range: <150 mg/dL) Cholesterol 115 (Ref Range: <200 mg/dL) 120 (Ref Range: <200 mg/dL) 119 (Ref Range: <200 mg/dL) LDL Cholesterol Calculated 57 (Ref Range: <100 mg/dL) 59 (Ref Range: <100 mg/dL) 61 (Ref Range: <100 mg/dL) HDL Cholesterol 33?L (Ref Range: >40 mg/dL) 33?L (Ref Range: >40 mg/dL) 33?L (Ref Range: >40 mg/dL) * Lab:Comprehensive Gay. Pane l Fast * Collection Date 04/21/2024 01/20/2024 10/17/2023 Collection Time 08:28 AM 08:41 AM 08:32 AM Order Date 04/21/2024 01/20/2024 10/17/2023 Sodium 140 (Ref Range: 135-145 mmol/L) 138 (Ref Range: 135-145 mmol/L) 136 (Ref Range: 135-145 mmol/L) Bilirubin Total 1.4?H (Ref Range: 0.0-1.0 mg/dL) 1.4?H (Ref Range: 0.0-1.0 mg/dL) 1.6?H (Ref Range: 0.0-1.0 mg/dL) Aspartate Amino Transferase 21 (Ref Range: 5-37 U/L) 16 (Ref Range: 5-37 U/L) 16 (Ref Range: 5-37 U/L) Alanine Aminotransferase 18 (Ref Range: 0-40 U/L) 11 (Ref Range: 0-40 U/L) 13 (Ref Range: 0-40 U/L) Total Protein 7.0 (Ref Range: 6.5-8.0 g/dL) 7.0 (Ref Range: 6.5-8.0 g/dL) 7.1 (Ref Range: 6.5-8.0 g/dL) Albumin Level 4.2 (Ref Range: 3.5-5.0 g/dL) 4.3 (Ref Range: 3.5-5.0 g/dL) 4.2 (Ref Range: 3.5-5.0 g/dL) Alkaline Phosphatase 76 (Ref Range: 39-117 U/L) 72 (Ref Range: 39-117 U/L) 73 (Ref Range: 39-117 U/L) Potassium 4.2 (Ref Range: 3.3-5.1 mmol/L) 4.4 (Ref Range: 3.3-5.1 mmol/L) 4.1 (Ref Range: 3.3-5.1 mmol/L) Chloride 107 (Ref Range: 96-108 mmol/L) 105 (Ref Range: 96-108 mmol/L) 106 (Ref Range: 96-108 mmol/L) Carbon Dioxide 21?L (Ref Range: 22-29 mmol/L) 23 (Ref Range: 22-29 mmol/L) 20?L (Ref Range: 22-29 mmol/L) Anion Gap 16 (Ref Range: 12-20) 14 (Ref Range: 12-20) 14 (Ref Range: 12-20) Blood Urea Nitrogen 21?H (Ref Range: 9-16 mg/dL) 15 (Ref Range: 9-16 mg/dL) 15 (Ref Range: 9-16 mg/dL) Creatinine 1.08 (Ref Range: 0.5-1.4 mg/dL) 1.08 (Ref Range: 0.5-1.4 mg/dL) 1.08 (Ref Range: 0.5-1.4 mg/dL) Estimated Glomerular Filt Rate > 60 > 60 > 60 Glucose Fasting 154?H (Ref Range: 60-99 mg/dL) 126?H (Ref Range: 60-99 mg/dL) 121?H (Ref Range: 60-99 mg/dL) Calcium 9.6 (Ref Range: 8.4-10.2 mg/dL) 9.6 (Ref Range: 8.4-10.2 mg/dL) 9.3 (Ref Range: 8.4-10.2 mg/dL) * Examination: ???General Examination: ?GENERAL APPEARANCE:?pleasant, well nourished, well developed, in no acute distress, calm and relaxed, obese, elderly man.?HEAD:?atraumatic, normocephalic.?EYES:?eomi, perrla, anicteric, conjugate.?EARS:?Normal anatomy with mild hearing loss.?NOSE:?septum intact.?ORAL CAVITY:?normal, unremarkable.?NECK/THYROID:?no jugular venous distention, no carotid bruit, thyroid normal.?LYMPH NODES:?no enlarged lymph nodes,spleen normal.?SKIN:?no suspicious lesions, anicteric.?HEART:?no clicks, gallops, murmurs, or rubs, regular rhythm, S1, S2 normal, no s3, or vascular bruits.?LUNGS:?clear to auscultation .?BREASTS:??no masses palpable bilaterally.?ABDOMEN:?bowel sounds normal, no ascites, no organomegaly, no mass, centripital obesity.?RECTAL EXAM:?not examined.?MUSCULOSKELETAL:?extremities unremarkable, no clubbing, cyanosis or edema, Healed surgical scars over right lateral ribs.?PERIPHERAL PULSES:?normal.?NEUROLOGIC:?alert and oriented, cranial nerves 2-12 grossly intact, deep tendon reflexes 2+ symmetrical, motor strength normal upper and lower extremities, sensory exam intact.?PSYCH:?alert, oriented.? Assessment: * Assessment: 1.?Coronary artery disease - I25.10 (Primary)???Notes :He has had no exertional angina since his last visit. He is able to conduct all of the activities of daily life without chest pain.???2.?Obesity - E66.9???Notes :His body mass index is stable at 32.12. We discussed weight reduction strategies. We discussed diet and nutrition today. He made a plan to lose weight at a rate of one half of a pound per week.???3.?Diabetes - E11.9???Notes :His fasting glucoses 154.? A hemoglobin A1c and microalbumin have been ordeered prior to his next visit.? He is compliant with his treatment.? He has lost 4 pounds.? No change in his medications was made today.???4.?Hyperlipidemia - E78.5???Notes :His total cholesterol is 115.? He is compliant with his treatment and has lost 4 pounds.? Discussed diet and nutrition at length today.???5.?Essential hypertension - I10???Notes :His blood pressure is lower than usual but he is asymptomatic.. No change in his regimen was needed. I strongly recommend aggressive sodium restriction and ongoing weight loss.???6.?Benign prostatic hyperplasia, unspecified whether lower urinary tract symptoms present - N40.0???Notes :He rises from sleep once a night to urinate. We discussed lifestyle modifications he could make to reduce nocturia.???7.?Multiple rib fractures involving four or more ribs - S22.49XA???Notes :The area has healed and he is breathing comfortably. He has a long vertical scar over his right chest wall but it is not painful when he coughs and sneezes.??? Plan: * Treatment: 2.?Diabetes?LAB: PROFILE, FASTING (COMPREHENSIVE METABOLIC) ?LAB: CBC WITH AUTO DIFF ?LAB: Lipid Panel ?LAB: Microalbumin, Random ?LAB: Hemoglobin A1c 3.?Hyperlipidemia?LAB: PROFILE, FASTING (COMPREHENSIVE METABOLIC) ?LAB: CBC WITH AUTO DIFF ?LAB: Lipid Panel ?LAB: Microalbumin, Random ?LAB: Hemoglobin A1c 4.?Others? Continue metFORMIN HCl Tablet, 500 MG, TAKE [...] blood sugar on Friday /Friday/ Friday.?? * Procedure Codes:? * Preventive Medicine:? ??Counseling:?Care goal follow-up plan:?Counseling [...] done: Medical or Other reason not done ??DM Care Plan:?Patient Lifestyle Goals?Patient wants to be able to manage diabetes without too much effort.?Treatment Goals?HbA1C < 7.0, Blood Sugars less than < 115.?Barriers?no barriers.?Self-Managment Goals?Work on weight loss, with a goal of losing 1 lb per week.? * Follow Up:?3 Months, 18th of this month (Reason: OV, Eye check-up) * Images: * Sign off status: Completed true * Provider:?Ehsan Perez MD Date:?07/2023 Generated for Mickiei ng/Marcus/eTransmitting on:?07/21/2024 08:47 AM EST History and Physical Notes * HPI (History of Present Illness) Category Sub-Category Detail Notes COVID-19 Screening Questions Have you had any new onset fever, chills, cough, congestion, sore throat, shortness of breath, muscle aches?: No Have you been exposed to the virus withi n the last 10 days?: No Have you travelled internationally in last 10 days?: No Have you been exposed to COVID-19 in the past?: No Examination Category Sub-Category Detail Notes General Examination GENERAL APPEARANCE: pleasant , well nourished, well developed, in no acute distress, calm and relaxed, obese, elderly man HEAD: atraumatic, normocep halic EYES: eomi, perrla, anicte magdalene, conjugate EARS: Normal anatomy with mild hearing loss NOSE: septum intact NECK/THYROID: no jugular venous di stention, no carotid bruit, thyroid normal HEART: no clicks, gallops, murmurs, or rubs, regular rhythm, S1, S2 normal, no s3, or vascular bruits LUNGS: clear to auscultatio n ABDOMEN: bowel sounds normal, no ascites, no organomegaly, no mass, centripital obesity NEUROLOGIC: alert and oriented, cranial nerves 2-12 grossly intact, deep tendon reflexes 2+ symmetrical, motor strength normal upper and lower extremities, sensory exam intact SKIN: no suspicious lesion s, anicteric PERIPHERAL PULSES: normal BREASTS: no masses palpable b ilaterally MUSCULOSKELETAL: extremities unremark able, no clubbing, cyanosis or edema, Healed surgical scars over right lateral ribs LYMPH NODES: no enlarged lymph no dilshad,spleen normal RECTAL EXAM: not examined PSYCH: alert, oriented ORAL CAVITY: normal, unremarkable
[2024-07-21 09:09] LABS: Basophils Absolute Auto 0.1 X10*3/uL (0.0-0.2); Basophils Percent Auto 0.7 % (0-2); Eosinophils Absolute Auto 0.3 X10*3/uL (0.0-0.4); Eosinophils Percent Auto 3.8 % (0-4); Hematocrit 47.9 % (42.0-52.0); Hemoglobin 16.4 g/dl (14.0-18.0); Imm Gran Abs Auto 0.03 X10*3/uL (0.00-0.03); Imm Gran Pct Auto 0.4 % (0.0-0.4); Lymphocytes Absolute Auto 2.2 X10*3/uL (1.2-4.9); Lymphocytes Percent Auto 28.6 % (20-40); Mean Corpuscular HGB Conc 34.2 g/dl (31.0-36.0); Mean Corpuscular Hemoglobin 30.8 pg (27.0-33.0); Monocytes Absolute Auto 0.7 X10*3/uL (0.1-1.2); Monocytes Percent Auto 8.8 % (2-11); Neutrophils Absolute Auto 4.4 x10*3/uL (2.0-8.3); Neutrophils Percent Auto 57.7 % (45-73); Platelet Count 237 X10*3/uL (160-400); Red Blood Count 5.32 X10*6/uL (4.60-5.80); Red Cell Distribution Width 13.8 % (11.0-16.0); White Blood Count 7.7 X10*3/uL (4.8-10.8)
[2024-07-21 09:17] LABS: Estimated Average Glucose 108 mg/dL; Hemoglobin A1C 152.2371 umol/L; Hemoglobin A1c % 5.4 % (<6.0); Total Hemoglobin (HGBA1C) 4245.9578 umol/L
[2024-07-21 09:41] LABS: Alanine Aminotransferase 14 U/L (0-40); Albumin Level 4.3 g/dL (3.5-5.0); Alkaline Phosphatase 94 U/L (39-117); Anion Gap 19 (12-20); Aspartate Amino Transferase 24 U/L (5-37); Bilirubin Total 1.4 mg/dL (0.0-1.0); Blood Urea Nitrogen 17 mg/dL (9-16); Calcium 9.7 mg/dL (8.4-10.2); Carbon Dioxide 20 mmol/L (22-29); Chloride 106 mmol/L (96-108); Cholesterol 116 mg/dL (<200); Estimated Glomerular Filt Rate > 60; Glucose Fasting 120 mg/dL (60-99); HDL Cholesterol 31 mg/dL (>40); LDL Cholesterol Calculated 56 mg/dL (<100); Potassium 4.6 mmol/L (3.3-5.1); Sodium 140 mmol/L (135-145); Total Protein 7.7 g/dL (6.5-8.0); Triglycerides 148 mg/dL (<150)
[2024-07-21 09:46] LABS: Creatinine Urine 198.88 mg/dL
== END 2024-07-21 08:19 | disposition home or self-care (01) ==
LOC: HO.LAB 08:18
PROVIDERS: PCP Internal Medicine Medical Oncology; Visit Provider Internal Medicine Medical Oncology
DX: E66.9 Obesity, unspecified (principal); E11.9 Type 2 diabetes mellitus without complications; E78.5 Hyperlipidemia, unspecified
CPT/HCPCS: 36415; 80053; 80061; 82043; 82570; 83036; 85025

== ENCOUNTER 2024-10-13 10:55 | Emergency (ER) | payer MEDICARE, SELFPAY ==
--- NOTE | ~2024-10-13 | XR_ITS ---
EXAMINATION: XR HIP, LEFT CLINICAL INFORMATION: atraumatic pain COMPARISON: None available. TECHNIQUE: AP pelvis, and 2 views of the left hip. FINDINGS: No fracture, dislocation, or suspicious bone lesion. There is normal alignment. 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 No evidence of AVN. Normal acetabular coverage. Femoral heads maintain normal contour. Pelvis appears intact. Degenerative changes in the SI joints and lower lumbar spine. Vascular calcifications throughout soft tissues. XR/XR hip LT w PEL1V IMPRESSION: 1. No acute bony findings. 2. 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 3. Vascular calcifications. Electronically signed by: Wisam Evans MD 10/13/2024 12:06 PM EDT
[2024-10-13 11:02] VITALS: BP 130/87; BP 138/76; PULSE 81; PULSE 82; RESP 18; TEMP 36.8; O2SAT 99; BMI 31.8
[2024-10-13 11:10] VITALS: BP 130/87; PULSE 81; RESP 18; TEMP 36.8; O2SAT 99
--- NOTE | 2024-10-13 11:12 | PC.NURSE ---
Patient presents to ED from home c/o left hip pain. Patient states pain has been presistant for some time but the pain has been increasing over the last couple days . Pain rated 9/10, denies injuries, Pain subsides with rest. +CMS +ROM in Blake LE, no warmth, no edema. VSS up to date. at bedside. Plan of care on going
--- NOTE | 2024-10-13 11:30 | ED.GENADULT ---
HPI - General Adult General Chief complaint: General Medical Stated complaint: unable to ambulate Time Seen by Provider: 10/13/24 11:30 Source: patient, RN notes reviewed and old records reviewed Mode of arrival: ambulatory Limitations: no limitations History of Present Illness ED Provider: [facility] narrative: Patient is an 84-year-old male with history of MO 20 years ago presenting to the emergency department with complaint of left lower back/hip pain. States he has had this pain for many years but that it has recently worsened over the past 2 days. Denies recent fall or other trauma. Has not taken any [id number] medications for his symptoms. Denies any weakness, numbness, tingling to his lower extremities. Denies any saddle anesthesia or bowel or bladder incontinence. Denies any urinary symptoms. Denies pain at rest, states pain is with movement. complaint: Left hip pain Related Data Previous Rx's ?Medication ?Instructions ?Recorded lidocaine 5 % topical patch 1 patch topical DAILY #15 ea 10/13/24 prednisone 20 mg tablet 20 mg PO DAILY #5 tabs 10/13/24 Allergies Allergy/AdvReac Type Severity Reaction Status Date / Time No Known Allergies Allergy Verified 10/13/24 11:03 Review of Systems Review of Systems: As per HPI Yes all other systems are reviewed and are negative Constitutional: Constitutional: Reports as per HPI Physical Exam ED Vital Signs: Vital Signs - 24 hr 10/13/24 15:35 Temperature 98.3 F Pulse Rate 81 Respiratory Rate 18 Blood Pressure 130/87 Pulse Oximetry 99 Oxygen Delivery Method Room Air BMI result Body Mass Index 31.8 Vital signs have been reviewed and appear to be correct. Blood pressure normal. Heart rate normal. Respiratory rate normal. Temperature normal. Oxygen saturation normal. Const General: cooperative, healthy appearing and no acute distress Orientation/consciousness: oriented to person, oriented to place, oriented to time and patient oriented x3 Limitations: no limitations HENMT Head: Yes normocephalic and Yes atraumatic Ears: external ears normal General nose exam: Normal external nose present Face and sinus: Yes face symmetric Mouth: oropharynx normal and moist mucous membranes Throat: Yes uvula midline Eyes Pupils: Equal, round and reactive pupils present Neck Neck: Yes normal visual inspection and Yes supple Resp Effort & Inspection: normal respiratory effort and able to speak in complete sentences Auscultation: clear to auscultation bilaterally Cardio Rate: regular rate Rhythm: regular rhythm Heart sounds: S1 normal heart sound present and S2 normal heart sound present GI Palpation (GI): Soft to palpation and nontender Auscultation: normoactive bowel sounds General: Yes no CVA tenderness Back/Spine/Pelvis Back: no CVA tenderness Thoracic/Lumbar Spine: thoracic and lumbar spine normal to inspection, straight leg raise negative bilaterally, pain with thoraco-lumbar ROM, No thoracic spinal tenderness and No lumbar spinal tenderness Sacroiliac joints: on the left tender to palpation Skin General skin exam: elasticity normal and turgor normal Neuro General: oriented to person, oriented to place, oriented to time, patient oriented x3, gait normal, tone normal, moves all extremities, Normal light touch and pain sensation, no focal motor deficits, CN's II-XI intact bilaterally and deep tendon reflexes 2+ bilaterally Cranial nerves: Yes Equal, round and reactive pupils present Cognition (Neuro): normal cognition Motor exam (neuro): 5/5 motor strength present throughout, Normal motor muscle tone present throughout and Motor abnormalities not present Extrem General: Yes full ROM, Yes no pedal edema and Yes no calf tenderness Left lower extremity: hip/thigh Details: normal to inspection, tenderness Location: of the hip Location: posteriorly and normal ROM Psych Mental Status: mental status grossly normal Affect: normal affect Thought process: Normal thought process present Medications Administered Discontinued Medications Generic Name Dose Route Start Last Admin Trade Name Behzadq PRN Reason Stop Dose Admin Acetaminophen 975 mg 10/13/24 12:46 10/13/24 12:57 Acetaminophen 325 Mg Tablet PO 10/13/24 12:47 975 mg ONCE ONE Administration Lidocaine 1 patch 10/13/24 12:46 10/13/24 12:57 Lidocaine 4 % Patch Adh..Patch TRANSDERMA 10/13/24 12:47 1 patch ONCE ONE Administration Protocol Medical Decision Making Medical Decision Making MDM Narrative: Patient is an 84-year-old male with history of MO 20 years ago presenting to the emergency department with complaint of left lower back/hip pain. On exam patient is awake, A+Ox3, VS WNL, afebrile, normal neurological exam without focal deficits, physical exam findings as above. Given reported symptoms and physical exam findings, initial differential includes but is not limited to osteoarthritis, muscle strain, fracture. Patient declined pain medication, states he has no pain at rest. X-ray notable for bilateral osteoarthritis. My interpretation is in agreement with the radiologist's interpretation. Results discussed with patient and significant other and all questions answered. Will refer to ortho for further evaluation and management. Will discharge patient on short course of prednisone as well as topical lidocaine patches. Advised patient he can also use Tylenol as needed for pain. Discussed with patient that he should use the walker that they have at home if he is having difficulty ambulating to prevent a fall. Return precautions discussed. Patient verbalized understanding of and agreement with plan. Differential Diagnosis Differential Diagnoses: The differential diagnosis associated with the presentation includes as per [facility] Admission/Observation Consideration of admission/observation: Escalation of care including admission/observation considered Patient would have been admitted to the hospital had their work up had any findings where hospital admission was appropriate and their clinical presentation warranted hospital admission. Independent Interpretation I performed an independent interpretation of an: Plain X-Ray Interpretation: Bilateral osteoarthritis on hip/pelvis x-ray. Radiology Impression Discussion of test interpretation with radiology: I have reviewed the radiologist's reading. Radiologist Impression: XR/XR hip LT w [id number] IMPRESSION: 1. No acute bony findings. 2. 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 3. Vascular calcifications. 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 Your x-ray showed evidence of osteoarthritis to both hips. We recommend that you take 650 mg of Tylenol every 6 hours as needed for pain. You are being prescribed topical lidocaine patches which you can apply to the painful area for up to 12 hours in a 24 hour period. Do not apply heat directly over the patches. You are being prescribed a short course of prednisone to decrease inflammation. We recommend that you follow-up with the orthopedic office. Call their office to schedule an appointment, they will not call you. Return to the emergency department if you develop worsening pain, change of color to your leg, fever, or any other new or concerning symptoms. Prescriptions: New prednisone 20 mg tablet 20 mg PO DAILY Qty: 5 0RF lidocaine 5 % adhesive patch,medicated 1 patch topical DAILY Qty: 15 0RF Rx Instructions: leave on most painful area for up to 12 hrs Interventions: ED Discharge Assessment Last Done: 10/13/24 15:35 Discharge Date/Time: 10/13/24 15:35 Print Language: Japanese
--- OUTSIDE RECORDS SUMMARY | 2024-10-13 12:42 | XMS_ITS | Patient Health Record ---
Author Organization Ehsan Perez III, MD Address [address] [place] [address] [place] [address] Care Team Providers Care Business Applications Manager Name Role Phone Ehsan Perez Primary Care [...] 1.3 BLD Negative Negative - Menstrating N/A Complete Blood Count Auto Di ff Reviewed date:10/17/2023 11:02:19 AM Interpretation: Performing Lab:[facility], [address] [place] [phone] Notes/Report: White Blood Count 7.3 4.8-10.8 X10*3/uL Red Blood Count 5.06 4.60-5.80 X10*6/uL Hemoglobin 15.9 14.0-18.0 g/dl Hematocrit 46.1 42.0-52.0 % Mean Corpuscular Volume 91.1 80.0-98.0 fL Mean Corpuscular Hemoglobin 31.4 27.0-33.0 pg Mean Corpuscular HGB Conc 34.5 31.0-36.0 g/dl Red Cell Distribution Width 13.7 11.0-16.0 % Platelet Count 205 160-400 X10*3/uL Mean Platelet Volume 8.8 9.4-12.4 fL Neutrophils Percent Auto 55.8 45-73 % Imm Gran Pct Auto 0.1 0.0-0.4 % Lymphocytes Percent Auto 31.0 20-40 % Monocytes Percent Auto 9.2 2-11 % Eosinophils Percent Auto 3.3 0-4 % Basophils Percent Auto 0.6 0-2 % NRBC Pct Auto 0.0 0.0-0.2 /100WBC Neutrophils Absolute Auto 4.1 2.0-8.3 x10*3/u L Imm Gran Abs Auto 0.01 0.00-0.03 X10*3/uL Lymphocytes Absolute Auto 2.3 1.2-4.9 X10*3/u L Monocytes Absolute Auto 0.7 0.1-1.2 X10*3/uL Eosinophils Absolute Auto 0.2 0.0-0.4 X10*3/u L Basophils Absolute Auto 0.0 0.0-0.2 X10*3/uL NRBC Abs Auto 0.000 0.0-0.012 X10*3/uL Comprehensive [place]. Panel Fa st Reviewed date:10/17/2023 11:02:19 AM Interpretation: Performing Lab:[facility], [address] [place] [phone] Notes/Report: Sodium 136 135-145 mmol/L Potassium 4.1 3.3-5.1 mmol/L Chloride 106 96-108 mmol/L Carbon Dioxide 20 22-29 mmol/L Anion Gap 14 12-20 Blood Urea Nitrogen 15 9-16 mg/dL Creatinine 1.08 0.5-1.4 mg/dL Estimated Glomerular Filt Rate > 60 NOTE: For -[place]or[place] individuals, multiply the result by 1.210. Chronic Kidney Disease: Estimated GFR < 60 mL/min/1.73m2 Severe Kidney Disease: Estimated GFR < 15 mL/min/1.73m2 Glucose Fasting 121 60-99 mg/dL A fasting glucose from 100-125 mg/dl is considered impaired (pre-diabetes). Calcium 9.3 8.4-10.2 mg/dL Bilirubin Total 1.6 0.0-1.0 mg/dL Aspartate Amino Transferase 16 5-37 U/L Alanine Aminotransferase 13 0-40 U/L Total Protein 7.1 6.5-8.0 g/dL Albumin Level 4.2 3.5-5.0 g/dL Alkaline Phosphatase 73 39-117 U/L Lipid Panel Reviewed date:10/17/2023 11:02:19 AM Interpretation: Performing Lab:[facility], [address] [place] [phone] Notes/Report: Triglycerides 125 <150 mg/dL Desirable Triglyceride: less than 150 mg/dL Borderline High Triglyceride 150-199 mg/dL High Triglyceride: 200-499 mg/dL Very High Triglyceride: greater than or equal to 5OO mg/dL Cholesterol 119 <200 mg/dL Desirable Cholesterol: less than 200 mg/dL Borderline High Cholesterol: 200-239 mg/dL High Cholesterol: greater than 239 mg/dL LDL Cholesterol Calculated 61 <100 mg/dL Desirable LDL: less than 100 mg/dL Near Optimal/Above Optimal LDL: 110-129 mg/dL Borderline High LDL: 130-159 mg/dL High LDL: 160-189 mg/dL Very High LDL: greater than or equal to 190 mg/dL HDL Cholesterol 33 >40 mg/dL Desirable HDL: greater than 40 mg/dL Note: This HDL assay may give artificially low results in patients with liver disease. Microalbumin, Random Reviewed date:10/17/2023 11:02:19 AM Interpretation: Performing Lab:[facility], [address] [place] [phone] Notes/Report: Creatinine Urine 228.04 Microalbumin Urine 15.0 Microalbum/Creatinine Ratio Ur 6.5 <30 ug/mg cr Albumin/Creatinine Ratio Reference Ranges: Normal: < 30 ug/mg creatinine Microalbuminuria: 30 - 300 ug/mg creatinine Clinical Albuminuria: > 300 ug/mg creatinine Hemoglobin A1c Reviewed date:10/17/2023 11:02:19 AM Interpretation: Performing Lab:[facility], [address] [place] [phone] Notes/Report: Hemoglobin A1c % 5.8 <6.0 % Hemoglobin A1C Reference Range Adults: 4.8 - 6.0 % Non diabetic: < 6.0 % Goal: < 7.0 % Additional Action Suggested: > 8.0 % Note: Hemoglobin A1c results are invalid for patients with abnormal amounts of HbF. Blood transfusions may impact the HbA1c concentration in the patient sample. Estimated Average Glucose 120 eAG = Estimated average glucose which is %A1C expressed as average glucose, using the formula of the C5S-Aqjeimg Average Glucose study (ADAG), Diabetes Care, Vol.31,#8, Dec. 2007 Complete Blood Count Auto Di ff Reviewed date:01/21/2024 11:09:11 AM Interpretation: Performing Lab:[facility], [address] [place] [phone] Notes/Report: White Blood Count 6.8 4.8-10.8 X10*3/uL Red Blood Count 5.16 4.60-5.80 X10*6/uL Hemoglobin 16.3 14.0-18.0 g/dl Hematocrit 46.7 42.0-52.0 % Mean Corpuscular Volume 90.5 80.0-98.0 fL Mean Corpuscular Hemoglobin 31.6 27.0-33.0 pg Mean Corpuscular HGB Conc 34.9 31.0-36.0 g/dl Red Cell Distribution Width 13.7 11.0-16.0 % Platelet Count 181 160-400 X10*3/uL Mean Platelet Volume 9.0 9.4-12.4 fL Neutrophils Percent Auto 56.2 45-73 % Imm Gran Pct Auto 0.4 0.0-0.4 % Lymphocytes Percent Auto 30.7 20-40 % Monocytes Percent Auto 9.2 2-11 % Eosinophils Percent Auto 2.8 0-4 % Basophils Percent Auto 0.7 0-2 % NRBC Pct Auto 0.0 0.0-0.2 /100WBC Neutrophils Absolute Auto 3.8 2.0-8.3 x10*3/u L Imm Gran Abs Auto 0.03 0.00-0.03 X10*3/uL Lymphocytes Absolute Auto 2.1 1.2-4.9 X10*3/u L Monocytes Absolute Auto 0.6 0.1-1.2 X10*3/uL Eosinophils Absolute Auto 0.2 0.0-0.4 X10*3/u L Basophils Absolute Auto 0.1 0.0-0.2 X10*3/uL NRBC Abs Auto 0.000 0.0-0.012 X10*3/uL Comprehensive [place]. Panel Fa st Reviewed date:01/21/2024 11:09:11 AM Interpretation: Performing Lab:[facility], [address] [place] [phone] Notes/Report: Sodium 138 135-145 mmol/L Potassium 4.4 3.3-5.1 mmol/L Chloride 105 96-108 mmol/L Carbon Dioxide 23 22-29 mmol/L Anion Gap 14 12-20 Blood Urea Nitrogen 15 9-16 mg/dL Creatinine 1.08 0.5-1.4 mg/dL Estimated Glomerular Filt Rate > 60 NOTE: For -[place] individuals, multiply the result by 1.210. Chronic Kidney Disease: Estimated GFR < 60 mL/min/1.73m2 Severe Kidney Disease: Estimated GFR < 15 mL/min/1.73m2 Glucose Fasting 126 60-99 mg/dL A fasting glucose of 126 mg/dl or greater on more than one occasion is considered diagnostic of diabetes. Calcium 9.6 8.4-10.2 mg/dL Bilirubin Total 1.4 0.0-1.0 mg/dL Aspartate Amino Transferase 16 5-37 U/L Alanine Aminotransferase 11 0-40 U/L Total Protein 7.0 6.5-8.0 g/dL Albumin Level 4.3 3.5-5.0 g/dL Alkaline Phosphatase 72 39-117 U/L Lipid Panel Reviewed date:01/21/2024 11:09:11 AM Interpretation: Performing Lab:[facility], [address] [place] [phone] Notes/Report: Triglycerides 142 <150 mg/dL Desirable Triglyceride: less than 150 mg/dL Borderline High Triglyceride 150-199 mg/dL High Triglyceride: 200-499 mg/dL Very High Triglyceride: greater than or equal to 5OO mg/dL Cholesterol 120 <200 mg/dL Desirable Cholesterol: less than 200 mg/dL Borderline High Cholesterol: 200-239 mg/dL High Cholesterol: greater than 239 mg/dL LDL Cholesterol Calculated 59 <100 mg/dL Desirable LDL: less than 100 mg/dL Near Optimal/Above Optimal LDL: 110-129 mg/dL Borderline High LDL: 130-159 mg/dL High LDL: 160-189 mg/dL Very High LDL: greater than or equal to 190 mg/dL HDL Cholesterol 33 >40 mg/dL Desirable HDL: greater than 40 mg/dL Note: This HDL assay may give artificially low results in patients with liver disease. Prostate Specific Antigen Reviewed date:01/21/2024 11:09:11 AM Interpretation: Performing Lab:[facility], [address] [place] [phone] Notes/Report: Prostate Specific Antigen 6.63 <0.05-4.0 ng/mL PSA methodology: Griffith Alinity i Chemiluminescent Microparticle Immunoassay (CMIA) Microalbumin, Random Reviewed date:01/21/2024 11:09:11 AM Interpretation: Performing Lab:[facility], [address] [place] [phone] Notes/Report: Creatinine Urine 216.39 Microalbumin Urine 19.0 Microalbum/Creatinine Ratio Ur 8.7 <30 ug/mg cr Albumin/Creatinine Ratio Reference Ranges: Normal: < 30 ug/mg creatinine Microalbuminuria: 30 - 300 ug/mg creatinine Clinical Albuminuria: > 300 ug/mg creatinine Hemoglobin A1c Reviewed date:01/21/2024 11:09:11 AM Interpretation: Performing Lab:[facility], [address] [place] [phone] Notes/Report: Hemoglobin A1c % 5.5 <6.0 % Hemoglobin A1C Reference Range Adults: 4.8 - 6.0 % Non diabetic: < 6.0 % Goal: < 7.0 % Additional Action Suggested: > 8.0 % Note: Hemoglobin A1c results are invalid for patients with abnormal amounts of HbF. Blood transfusions may impact the HbA1c concentration in the patient sample. Estimated Average Glucose 111 eAG = Estimated average glucose which is %A1C expressed as average glucose, using the formula of the Q4Q-Ckdypaz Average Glucose study (ADAG), Diabetes Care, Vol.31,#8, Dec. 2007 Complete Blood Count Auto Di ff Reviewed date:04/22/2024 07:05:44 AM Interpretation: Performing Lab:[facility], [address] [place] [phone] Notes/Report: White Blood Count 7.3 4.8-10.8 X10*3/uL Red Blood Count 5.26 4.60-5.80 X10*6/uL Hemoglobin 16.4 14.0-18.0 g/dl Hematocrit 48.2 42.0-52.0 % Mean Corpuscular Volume 91.6 80.0-98.0 fL Mean Corpuscular Hemoglobin 31.2 27.0-33.0 pg Mean Corpuscular HGB Conc 34.0 31.0-36.0 g/dl Red Cell Distribution Width 13.7 11.0-16.0 % Platelet Count 215 160-400 X10*3/uL Mean Platelet Volume 9.2 9.4-12.4 fL Neutrophils Percent Auto 57.6 45-73 % Imm Gran Pct Auto 0.3 0.0-0.4 % Lymphocytes Percent Auto 29.6 20-40 % Monocytes Percent Auto 9.5 2-11 % Eosinophils Percent Auto 2.5 0-4 % Basophils Percent Auto 0.5 0-2 % NRBC Pct Auto 0.0 0.0-0.2 /100WBC Neutrophils Absolute Auto 4.2 2.0-8.3 x10*3/u L Imm Gran Abs Auto 0.02 0.00-0.03 X10*3/uL Lymphocytes Absolute Auto 2.2 1.2-4.9 X10*3/u L Monocytes Absolute Auto 0.7 0.1-1.2 X10*3/uL Eosinophils Absolute Auto 0.2 0.0-0.4 X10*3/u L Basophils Absolute Auto 0.0 0.0-0.2 X10*3/uL NRBC Abs Auto 0.000 0.0-0.012 X10*3/uL Comprehensive [place]. Panel Fa st Reviewed date:04/22/2024 07:05:44 AM Interpretation: Performing Lab:[facility], [address] [place] [phone] Notes/Report: Sodium 140 135-145 mmol/L Potassium 4.2 3.3-5.1 mmol/L Chloride 107 96-108 mmol/L Carbon Dioxide 21 22-29 mmol/L Anion Gap 16 12-20 Blood Urea Nitrogen 21 9-16 mg/dL Creatinine 1.08 0.5-1.4 mg/dL Estimated Glomerular Filt Rate > 60 Chronic Kidney Disease: Estimated GFR < 60 mL/min/1.73m2 Severe Kidney Disease: Estimated GFR < 15 mL/min/1.73m2 Glucose Fasting 154 60-99 mg/dL A fasting glucose of 126 mg/dl or greater on more than one occasion is considered diagnostic of diabetes. Calcium 9.6 8.4-10.2 mg/dL Bilirubin Total 1.4 0.0-1.0 mg/dL Aspartate Amino Transferase 21 5-37 U/L Alanine Aminotransferase 18 0-40 U/L Total Protein 7.0 6.5-8.0 g/dL Albumin Level 4.2 3.5-5.0 g/dL Alkaline Phosphatase 76 39-117 U/L Lipid Panel Reviewed date:04/22/2024 07:05:44 AM Interpretation: Performing Lab:[facility], [address] [place] [phone] Notes/Report: Triglycerides 126 <150 mg/dL Desirable Triglyceride: less than 150 mg/dL Borderline High Triglyceride 150-199 mg/dL High Triglyceride: 200-499 mg/dL Very High Triglyceride: greater than or equal to 5OO mg/dL Cholesterol 115 <200 mg/dL Desirable Cholesterol: less than 200 mg/dL Borderline High Cholesterol: 200-239 mg/dL High Cholesterol: greater than 239 mg/dL LDL Cholesterol Calculated 57 <100 mg/dL Desirable LDL: less than 100 mg/dL Near Optimal/Above Optimal LDL: 110-129 mg/dL Borderline High LDL: 130-159 mg/dL High LDL: 160-189 mg/dL Very High LDL: greater than or equal to 190 mg/dL HDL Cholesterol 33 >40 mg/dL Desirable HDL: greater than 40 mg/dL Note: This HDL assay may give artificially low results in patients with liver disease. PSA Free and Total Reviewed date:05/19/2024 08:50:49 AM Interpretation: Performing Lab:[facility], [address] [place] [phone] Notes/Report: Prostate Specific Ag Total 6.0 < OR = 4.0 ng/mL Percent Free Prostate Spec Ag 23 >25 % (calc) PSA(ng/mL) Free PSA(%) Estimated(x) Probability of Cancer(as%) 0-2.5 (*) Approx. 1 2.6-4.0(1) 0-27(2) 24(3) 4.1-10(4) 0-10 56 11-15 28 16-20 20 21-25 16 >or =26 8 >10(+) N/A >50 References:(1)Kobi wang et al.:Urology 60: 469-474 (2001) (2)Jillian et al.:J.Urol 168: 922-925 (2001) Free PSA(%) Sensitivity(%) Specificity(%) < or = 25 85 19 < or = 30 93 9 (3)Catalona et al.:SABA 277: 7096-5371 (1996) (4)Catalona et al.:SABA 279: 1346-4048 (1997) (x)These estimates vary with age, ethnicity, family history and MARILEE results. (*)The diagnostic usefulness of % Free PSA has not been established in patients with total PSA below 2.6 ng/mL (+)In men with PSA above 10 ng/mL, prostate cancer risk is determined by total PSA alone. The Total PSA value from this assay system is standardized against the equimolar PSA standard. The test result will be approximately 20% higher when compared to the WHO-standardized Total PSA (Siemens assay). Comparison of serial PSA results should be interpreted with this fact in mind. PSA was performed using the Wagner Falguni Immunoassay method. Values obtained from different assay methods cannot be used interchangeably. PSA levels, regardless of value, should not be interpreted as absolute evidence of the presence or absence of disease. THIS TEST WAS PERFORMED AT: [facility] [address] [phone] TOSHIA JENKINS MD Free Prostate Spec Ag 1.4 Complete Blood Count Auto Di ff Reviewed date:07/26/2024 11:24:32 AM Interpretation: Performing Lab:[facility], [address] [place] [phone] Notes/Report: White Blood Count 7.7 4.8-10.8 X10*3/uL Red Blood Count 5.32 4.60-5.80 X10*6/uL Hemoglobin 16.4 14.0-18.0 g/dl Hematocrit 47.9 42.0-52.0 % Mean Corpuscular Volume 90.0 80.0-98.0 fL Mean Corpuscular Hemoglobin 30.8 27.0-33.0 pg Mean Corpuscular HGB Conc 34.2 31.0-36.0 g/dl Red Cell Distribution Width 13.8 11.0-16.0 % Platelet Count 237 160-400 X10*3/uL Mean Platelet Volume 9.0 9.4-12.4 fL Neutrophils Percent Auto 57.7 45-73 % Imm Gran Pct Auto 0.4 0.0-0.4 % Lymphocytes Percent Auto 28.6 20-40 % Monocytes Percent Auto 8.8 2-11 % Eosinophils Percent Auto 3.8 0-4 % Basophils Percent Auto 0.7 0-2 % NRBC Pct Auto 0.0 0.0-0.2 /100WBC Neutrophils Absolute Auto 4.4 2.0-8.3 x10*3/u L Imm Gran Abs Auto 0.03 0.00-0.03 X10*3/uL Lymphocytes Absolute Auto 2.2 1.2-4.9 X10*3/u L Monocytes Absolute Auto 0.7 0.1-1.2 X10*3/uL Eosinophils Absolute Auto 0.3 0.0-0.4 X10*3/u L Basophils Absolute Auto 0.1 0.0-0.2 X10*3/uL NRBC Abs Auto 0.000 0.0-0.012 X10*3/uL Comprehensive [place]. Panel Fa st Reviewed date:07/26/2024 11:24:32 AM Interpretation: Performing Lab:[facility], [address] [place] [phone] Notes/Report: Sodium 140 135-145 mmol/L Potassium 4.6 3.3-5.1 mmol/L Chloride 106 96-108 mmol/L Carbon Dioxide 20 22-29 mmol/L Anion Gap 19 12-20 Blood Urea Nitrogen 17 9-16 mg/dL Creatinine 1.00 0.5-1.4 mg/dL Estimated Glomerular Filt Rate > 60 Chronic Kidney Disease: Estimated GFR < 60 mL/min/1.73m2 Severe Kidney Disease: Estimated GFR < 15 mL/min/1.73m2 Glucose Fasting 120 60-99 mg/dL A fasting glucose from 100-125 mg/dl is considered impaired (pre-diabetes). Calcium 9.7 8.4-10.2 mg/dL Bilirubin Total 1.4 0.0-1.0 mg/dL Aspartate Amino Transferase 24 5-37 U/L Alanine Aminotransferase 14 0-40 U/L Total Protein 7.7 6.5-8.0 g/dL Albumin Level 4.3 3.5-5.0 g/dL Alkaline Phosphatase 94 39-117 U/L Lipid Panel Reviewed date:07/26/2024 11:24:32 AM Interpretation: Performing Lab:[facility], [address] [place] [phone] Notes/Report: Triglycerides 148 <150 mg/dL Desirable Triglyceride: less than 150 mg/dL Borderline High Triglyceride 150-199 mg/dL High Triglyceride: 200-499 mg/dL Very High Triglyceride: greater than or equal to 5OO mg/dL Cholesterol 116 <200 mg/dL Desirable Cholesterol: less than 200 mg/dL Borderline High Cholesterol: 200-239 mg/dL High Cholesterol: greater than 239 mg/dL LDL Cholesterol Calculated 56 <100 mg/dL Desirable LDL: less than 100 mg/dL Near Optimal/Above Optimal LDL: 110-129 mg/dL Borderline High LDL: 130-159 mg/dL High LDL: 160-189 mg/dL Very High LDL: greater than or equal to 190 mg/dL HDL Cholesterol 31 >40 mg/dL Desirable HDL: greater than 40 mg/dL Note: This HDL assay may give artificially low results in patients with liver disease. Microalbumin, Random Reviewed date:07/26/2024 11:24:32 AM Interpretation: Performing Lab:[facility], [address] [place] [phone] Notes/Report: Creatinine Urine 198.88 Microalbumin Urine 16.0 Microalbum/Creatinine Ratio Ur 8.0 <30 ug/mg cr Albumin/Creatinine Ratio Reference Ranges: Normal: < 30 ug/mg creatinine Microalbuminuria: 30 - 300 ug/mg creatinine Clinical Albuminuria: > 300 ug/mg creatinine Hemoglobin A1c Reviewed date:07/26/2024 11:24:32 AM Interpretation: Performing Lab:[facility], [address] [place] [phone] Notes/Report: Hemoglobin A1c % 5.4 <6.0 % Hemoglobin A1C Reference Range Adults: 4.8 - 6.0 % Non diabetic: < 6.0 % Goal: < 7.0 % Additional Action Suggested: > 8.0 % Note: Hemoglobin A1c results are invalid for patients with abnormal amounts of HbF. Blood transfusions may impact the HbA1c concentration in the patient sample. Estimated Average Glucose 108 eAG = Estimated average glucose which is %A1C expressed as average glucose, using the formula of the F1D-Ebysjyf Average Glucose study (ADAG), Diabetes Care, Vol.31,#8, 2007 XR hip LT w PEL1V (Not yet r eviewed by provider) Interpretation: Performing Lab: Notes/Report: [address] [address] XRay Report Signed Patient: Ramakrishna Locke MR#: [id number] 0 : 1940 Acct:[id number] Age/Sex: 84 / M ADM Date: 10/13/24 Loc: .ED Attending Dr: Ordering Physician: Lexi Moyer NP Date of Service: 10/13/24 Procedure(s): XR hip LT w PEL1V Accession Number(s): [id number] cc: Ehsan Perez MD; Lexi Moyer NP EXAMINATION: XR HIP, LEFT CLINICAL INFORMATION: atraumatic pain COMPARISON: None available. TECHNIQUE: AP pelvis, and 2 views of the left hip. FINDINGS: No fracture, dislocation, or suspicious bone lesion. There is normal alignment. 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 No evidence of AVN. Normal acetabular coverage. Femoral heads maintain normal contour. Pelvis appears intact. Degenerative changes in the SI joints and lower lumbar spine. Vascular calcifications throughout soft tissues. XR/XR hip LT w PEL1V IMPRESSION: 1. No acute bony findings. 2. 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 3. Vascular calcifications. Electronically signed by: Wisam Evans MD 10/13/2024 12:06 PM EDT RP Dictated By: Wisam Evans MD Signed By: <Electronically signed by Wisam Evans MD in [place]> 10/13/24 1206 DD/ 1131 TD/TT: 10/13/24 1150 [employer] Supervisor: [place] [address] XRay Report Signed Patient: Ramakrishna Locke MR#: [id number] 0 : 1940 Acct:[id number] Age/Sex: 84 / M ADM Date: 10/13/24 Loc: .ED Attending Dr: Ordering Physician: Lexi Moyer NP Date of Service: 10/13/24 Procedure(s): XR hip LT w PEL1V Accession Number(s): [id number] cc: Ehsan Perez MD; Lexi Moyer NP EXAMINATION: XR HIP, LEFT CLINICAL INFORMATION: atraumatic pain COMPARISON: None available. TECHNIQUE: AP pelvis, and 2 vie ws of the left hip. FINDINGS: No fracture, dislocation, or suspicious bone lesion. There is normal alignment. 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 No evidence of AVN. Normal acetabular coverage. Femoral heads maintain normal contour. Pelvis appears intac t. Degenerative changes in the SI joints and lower lumbar spine. Vascular calcifications throughout soft tissues. XR/XR hip LT w PEL1V IMPRESSION: 1. No acute bony findings. 2. 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 3. Vascular calcifications. Electronically isaiah d by: Wisam Evans MD 10/13/2024 12:06 PM EDT RP Dictated By: Wisam Evans MD Signed By: <Electronically signed by Wisam Eavns MD in [place]> 10/13/24 1206 DD/ 1131 TD/TT: 10/13/24 1150 [employer] Supervisor: Reason For Referral No Information Medications Medication SIG (Take, Route, Frequency, Duration) Notes Start Date End Date Status Pantoprazole Sodium 40 MG 1 tablet Orall y Once a day Active Lisinopril-hydroCHLOROthiaz jae 10-12.5 [...] blood sugar on Friday /Friday/ Friday09/09/2022 Active metFORMIN HCl 500 MG TAKE 1 TABLET BY [facility] ONCE DAILY WITH A MEAL Active Donepezil HCl 10 MG 1 tablet at bedtime Orally Once a day Active Accu-Chek Jeanette Plus w/Device as directed In Vitro Check blood glucose on Friday, Friday, Friday01/07/2020 Active Gabapentin 100 MG Orally Ac tive Furosemide 20 MG 1 tablet Orally Once a day Active Immunizations Vaccine Route Administration Date Status Comme nts Influenza IM Intramuscular 02/21/2012 Administered Influenza IM Intramuscular 03/17/2014 Administered Influenza IM Intramuscular 03/22/2015 Administered Influenza IM Intramuscular 02/28/2016 Administered Influenza no Preserv 3 and > Unknown 02/17/2017 Administered Influenza no Preserv 3 and > IM Intramuscular 02/20/2018 Administered Influenza no Preserv 3 and > Unknown 02/24/2020 Administered Influenza, quad IM Intramuscular 03/13/2022 Administered Influenza, quad IM Intramuscular 04/24/2023 Administered Social History Tobacco Use: Social History Observation [...] Problem Status W/U Status Risk Notes Problem 14279043 Hyperlipidemia (E78.5) Active confirmed The current fasting lipid profile shows good control of his cholesterol. No change in his regimen was necessary. Problem 150059480 Obesity (E66.9) Active confirmed He has lost 3 pounds and remains obese. We discussed weight reduction strategies. We discussed diet and nutrition today. He made a plan to lose weight at a rate of one half of a pound per week. Problem Type II diabetes mellitus without complication (511201824) Diabetes (E11.9) Active confirmed He has been compliant with medications. His hemoglobin A1c is 5.4. He is up-to-date with ophthalmology. No change in his regimen was made. Problem 87390570 Coronary artery disease (I25.10) Active confirmed He has had no exertional angina since his last visit. He is able to conduct all of the activities of daily life without chest pain. Problem 39826351 Essential hypertension (I10) Active confirmed His blood pressure is Controlled.. No change in his regimen was needed. I strongly recommend aggressive sodium restriction and ongoing weight loss. Problem 39638356 Bilateral cataracts (H26.9) Active confirmed Problem 941208160 Elevated PSA (R97.20) Active confirmed He had to PSA determinations in 2022. They were 5.95 and 5.85. His PSA currently is 6.63. His prostate exam is unremarkable. I offered to refer him for urologic examination but he declined saying he did not wish to have a biopsy at this time. He is amenable to active surveillance. Problem 446592020 Type 2 diabetes mellitus without complication, without long-term current use of insulin (E11.9) Active confirmed He is compli ant with his medications. His hemoglobin A1c is 5.5. No change in his regimen was made. Problem Benign prostatic hypertrophy without outflow obstruction (792425253) Benign prostatic hyperplasia, unspecified whether lower urinary tract symptoms present (N40.0) Active confirmed He rises from sleep once a night to urinate. We discussed lifestyle modifications he could make to reduce nocturia. Problem 4615759 Multiple rib fractures involving four or more ribs (S22.49XA) Active confirmed The area has healed and he is breathing comfortably. He has a long vertical scar over his right chest wall but it is not painful when he coughs and sneezes. Problem 76427386 Mild dementia with agitation, unspecified dementia type (F03.A11) Active confirmed He has become increasingly for doubtful times and places. He has shown some agitation home with anger, throwing things and using language. After discussing this with him and his we have begun him on donepezil. Vital Signs Heart Rate 87 /min 07/26/2024 Temperature 96.4 degrees Fahrenheit 07/26/2024 Blood pressure diastolic 65 mm Hg 07/26/2024 Height 66 in 07/26/2024 Blood pressure systolic 109 mm Hg 07/26/2024 Weight 196 lbs 07/26/2024 BMI 31.63 kg/m2 07/26/2024 Encounters Encounter Location Date Provider Diagnosis Ehsan Perez III, MD [address] [place] [address] [place] [address] 10/24/2023 Ehsan Perez Obesity E66.9 ; Hyperlipidemia E78.5 ; Diabetes E11.9 and Elevated PSA R97.20 Ehsan Perez III, MD [address] [place] [address] [place] [address] 11/03/2023 Ehsan Perez Bilateral impacted cerumen H61.23 ; Coronary artery disease I25.10 ; Obesity E66.9 ; Essential hypertension I10 and Benign prostatic hyperplasia, unspecified whether lower urinary tract symptoms present N40.0 Ehsan Perez III, MD [address] [place] [address] [place] [address] 01/27/2024 Ehsan Perez Obesity E66.9 ; Hyperlipidemia E78.5 ; Diabetes E11.9 ; Benign prostatic hyperplasia, unspecified whether lower urinary tract symptoms present N40.0 ; Coronary artery disease I25.10 ; Elevated PSA R97.20 and Mild dementia with agitation, unspecified dementia type F03.A11 Ehsan Perez III, MD [address] [place] [address] [place] [address] 04/27/2024 Ehsan Perez Obesity E66.9 ; Kaela nary artery disease I25.10 ; Diabetes E11.9 ; Hyperlipidemia E78.5 ; Essential hypertension I10 ; Benign prostatic hyperplasia, unspecified whether lower urinary tract symptoms present N40.0 and Multiple rib fractures involving four or more ribs S22.49XA Ehsan Perez III, MD [address] [place] [address] [place] [address] 07/26/2024 Ehsan Perez Obesity E66.9 ; Diab etes E11.9 ; Hyperlipidemia E78.5 ; Essential hypertension I10 ; Benign prostatic hyperplasia, unspecified whether lower urinary tract symptoms present N40.0 ; Multiple rib fractures involving four or more ribs S22.49XA and Mild dementia with agitation, unspecified dementia type F03.A11 Ehsan Perez III, MD [address] [place] [address] [address] [place] [address] 02/02/2024 Ehsan Perez Coronary artery dise ase I25.10 ; Obesity E66.9 ; Essential hypertension I10 ; Diabetes E11.9 ; Benign prostatic hyperplasia, unspecified whether lower urinary tract symptoms present N40.0 and Elevated PSA R97.20 Ehsan Perez III, MD [address] [place] [address] [address] [place] [address] 10/13/2024 Ehsan Perez Assessments Encounter Date Diagnosis (ICD Code) Assessment Notes Treat ment Notes Treatment Clinical Notes 10/24/2023 Hyperlipidemia (ICD-10 - E78.5) His lipids are currently controlled and stable and no change in his regimen was needed. 10/24/2023 Obesity (ICD-10 - E66.9) He has gained 6 weight since still is in the obese range. We discussed the elements of a weight reduction diet great detail today. We made a plan to lose weight at a rate of one half of a pound per week. 11/03/2023 Coronary artery disease (ICD-10 - I25.10) He has had no exertional angina since his last visit. He is able to conduct all of the activities of daily life without chest pain. 11/03/2023 Bilateral impacted cerumen (ICD-10 - H61.23) These were removed with bilateral warm water irrigation. No complications occurred and hearing was improved. 01/27/2024 Hyperlipidemia (ICD-10 - E78.5) His lipid profile shows him to be in his target range and no change in his medication was necessary. 01/27/2024 Obesity (ICD-10 - E66.9) His body mass index is stable at 32.76. We discussed weight reduction strategies. We discussed diet and nutrition today. He made a plan to lose weight at a rate of one half of a pound per week. 04/27/2024 Obesity (ICD-10 - E66.9) His body [...] activities of daily life without chest pain. 07/26/2024 Obesity (ICD-10 - E66.9) He has lost 3 pounds and remains obese. We discussed weight reduction strategies. We discussed diet and nutrition today. He made a plan to lose weight at a rate of one half of a pound per week. 07/26/2024 Diabetes (ICD-10 - E11.9) He has been compliant with medications. His hemoglobin A1c is 5.4. He is up-to-date with ophthalmology. No change in his regimen was made. 10/24/2023 Diabetes (ICD-10 - E11.9) His hemoglobin A1c is under 6. His diabetes is well-controlled no change in his medications was necessary. I recommended aggressive weight loss. 11/03/2023 Obesity (ICD-10 - E66.9) He has gained 6 weight since still is in the obese range. We discussed the elements of a weight reduction diet great detail today. We made a plan to lose weight at a rate of one half of a pound per week. 01/27/2024 Diabetes (ICD-10 - E11.9) His hemoglobin A1c was 5.5. No change in his medication was made. I strongly recommended adherence to a diabetic diet, exercise and reduction in calories. 04/27/2024 Diabetes (ICD-10 - E11.9) His fasting glucoses 154. A hemoglobin A1c and microalbumin have been ordeered prior to his next visit. He is compliant with his treatment. He has lost 4 pounds. No change in his medications was made today. 07/26/2024 Hyperlipidemia (ICD-10 - E78.5) The current fasting lipid profile shows good control of his cholesterol. No change in his regimen was necessary. 02/02/2024 Coronary artery disease (ICD-10 - I25.10) 10/24/2023 Elevated PSA (ICD-10 - R97.20) A repeat PSA has been ordered. 11/03/2023 Essential hypertension (ICD-10 - I10) His blood pressure is 112/85. No change in his regimen was needed. I strongly recommend aggressive sodium restriction and ongoing weight loss. 01/27/2024 Benign prostatic hyperplasia, unspecified whether lower urinary tract symptoms present (ICD-10 - N40.0) He rises from sleep once a night to urinate. We discussed lifestyle modifications he could make to reduce nocturia. 04/27/2024 Hyperlipidemia (ICD-10 - E78.5) His total cholesterol is 115. He is compliant with his treatment and has lost 4 pounds. Discussed diet and nutrition at length today. 07/26/2024 Essential hypertension (ICD-10 - I10) His blood pressure is Controlled.. No change in his regimen was needed. I strongly recommend aggressive sodium restriction and ongoing weight loss. 02/02/2024 Obesity (ICD-10 - E66.9) 11/03/2023 Benign prostatic hyperplasia, unspecified whether lower urinary tract symptoms present (ICD-10 - N40.0) He arises from sleep once or twice a night to urinate. We have discussed lifestyle modification as a way of controlling nocturia. His PSA has dropped from 7-5. 01/27/2024 Coronary artery disease (ICD-10 - I25.10) He has had no exertional angina since his last visit. He is able to conduct all of the activities of daily life without chest pain. 04/27/2024 Essential hypertension (ICD-10 - I10) His blood pressure is lower than usual but he is asymptomatic.. No change in his regimen was needed. I strongly recommend aggressive sodium restriction and ongoing weight loss. 07/26/2024 Benign prostatic hyperplasia, unspecified whether lower urinary tract symptoms present (ICD-10 - N40.0) He rises from sleep once a night to urinate. We discussed lifestyle modifications he could make to reduce nocturia. 02/02/2024 Essential hypertension (ICD-10 - I10) 01/27/2024 Elevated PSA (ICD-10 - R97.20) He had to PSA determinations in 2022. They were 5.95 and 5.85. His PSA currently is 6.63. His prostate exam is unremarkable. I offered to refer him for urologic examination but he declined saying he did not wish to have a biopsy at this time. He is amenable to active surveillance. 04/27/2024 Benign prostatic hyperplasia, unspecified whether lower urinary tract symptoms present (ICD-10 - N40.0) He rises from sleep once a night to urinate. We discussed lifestyle modifications he could make to reduce nocturia. 07/26/2024 Multiple rib fractures involving four or more ribs (ICD-10 - S22.49XA) The area has healed and he is breathing comfortably. He has a long vertical scar over his right chest wall but it is not painful when he coughs and sneezes. 02/02/2024 Diabetes (ICD-10 - E11.9) 01/27/2024 Mild dementia with agitation, unspecified dementia type (ICD-10 - F03.A11) He has become increasingly for doubtful times and places. He has shown some agitation home with anger, throwing things and using language. After discussing this with him and his we have begun him on donepezil. 04/27/2024 Multiple rib fractures involving four or more ribs (ICD-10 - S22.49XA) The area has healed and he is breathing comfortably. He has a long vertical scar over his right chest wall but it is not painful when he coughs and sneezes. 07/26/2024 Mild dementia with agitation, unspecified dementia type (ICD-10 - F03.A11) He has become increasingly for doubtful times and places. He has shown some agitation home with anger, throwing things and using language. After discussing this with him and his we have begun him on donepezil. 02/02/2024 Benign prostatic hyperplasia, unspecified whether lower urinary tract symptoms present (ICD-10 - N40.0) 02/02/2024 Elevated PSA (ICD-10 - R97.20) Plan Of Treatment Pending Test Test Name Order Date PROFILE, FASTING (COMPREHENSIVE METABOLI C) 01/04/2019 PROFILE, FASTING (COMPREHENSIVE METABOLI C) 02/16/2021 PROFILE, FASTING (COMPREHENSIVE METABOLI C) 07/24/2023 PROFILE, FASTING (COMPREHENSIVE METABOLI C) 01/27/2024 PROFILE, FASTING (COMPREHENSIVE METABOLI C) 10/17/2020 PROFILE, FASTING (COMPREHENSIVE METABOLI C) 08/21/2017 PROFILE, FASTING (COMPREHENSIVE METABOLI C) 04/24/2023 PROFILE, FASTING (COMPREHENSIVE METABOLI C) 06/20/2020 PROFILE, FASTING (COMPREHENSIVE METABOLI C) 01/22/2023 PROFILE, FASTING (COMPREHENSIVE METABOLI C) 09/04/2018 PROFILE, FASTING (COMPREHENSIVE METABOLI C) 05/06/2017 PROFILE, FASTING (COMPREHENSIVE METABOLI C) 04/22/2022 PROFILE, FASTING (COMPREHENSIVE METABOLI C) 10/29/2022 PROFILE, FASTING (COMPREHENSIVE METABOLI C) 07/30/2022 PROFILE, FASTING (COMPREHENSIVE METABOLI C) 06/05/2018 PROFILE, FASTING (COMPREHENSIVE METABOLI C) 03/20/2020 PROFILE, FASTING (COMPREHENSIVE METABOLI C) 02/20/2018 PROFILE, FASTING (COMPREHENSIVE METABOLI C) 01/21/2022 PROFILE, FASTING (COMPREHENSIVE METABOLI C) 02/02/2024 PROFILE, FASTING (COMPREHENSIVE METABOLI C) 07/26/2024 PROFILE, FASTING (COMPREHENSIVE METABOLI C) 04/27/2024 PROFILE, FASTING (COMPREHENSIVE METABOLI C) 12/09/2019 PROFILE, FASTING (COMPREHENSIVE METABOLI C) 08/05/2019 PROFILE, FASTING (COMPREHENSIVE METABOLI C) 09/17/2021 PROFILE, FASTING (COMPREHENSIVE METABOLI C) 05/06/2019 PROFILE, FASTING (COMPREHENSIVE METABOLI C) 06/18/2021 PROFILE, FASTING (COMPREHENSIVE METABOLI C) 10/24/2023 PROFILE, RANDOM (COMPREHENSIVE METABOLIC ) 11/20/2017 HEMOGLOBIN A1C (GLYCOHEMOGLOBIN) 020 HEMOGLOBIN A1C (GLYCOHEMOGLOBIN) 019 HEMOGLOBIN A1C (GLYCOHEMOGLOBIN) 022 HEMOGLOBIN A1C (GLYCOHEMOGLOBIN) 019 HEMOGLOBIN A1C (GLYCOHEMOGLOBIN) 021 HEMOGLOBIN A1C (GLYCOHEMOGLOBIN) 018 HEMOGLOBIN A1C (GLYCOHEMOGLOBIN) 021 HEMOGLOBIN A1C (GLYCOHEMOGLOBIN) 018 HEMOGLOBIN A1C (GLYCOHEMOGLOBIN) 021 HEMOGLOBIN A1C (GLYCOHEMOGLOBIN) 023 HEMOGLOBIN A1C (GLYCOHEMOGLOBIN) 019 HEMOGLOBIN A1C (GLYCOHEMOGLOBIN) 017 HEMOGLOBIN A1C (GLYCOHEMOGLOBIN) 023 HEMOGLOBIN A1C (GLYCOHEMOGLOBIN) 019 HEMOGLOBIN A1C (GLYCOHEMOGLOBIN) 018 LIPID PANEL 08/05/2019 LIPID PANEL 09/17/2021 LIPID PANEL 12/09/2019 LIPID PANEL 05/06/2019 LIPID PANEL 01/04/2019 LIPID PANEL 10/17/2020 LIPID PANEL 08/21/2017 LIPID PANEL 06/20/2020 LIPID PANEL 01/22/2023 LIPID PANEL 10/29/2022 LIPID PANEL 09/04/2018 LIPID PANEL 05/06/2017 LIPID PANEL 03/20/2020 LIPID PANEL 07/30/2022 LIPID PANEL 01/21/2022 LIPID PANEL 02/02/2024 LIPID PANEL 06/05/2018 LIPID PANEL 02/20/2018 PSA, TOTAL 07/30/2022 PSA, TOTAL 01/21/2022 PSA, TOTAL 10/24/2023 PSA, TOTAL 08/05/2019 PSA, TOTAL 09/17/2021 PSA, TOTAL 06/18/2021 PSA, TOTAL 05/06/2019 PSA, TOTAL 01/22/2023 PSA, TOTAL 10/29/2022 PSA, TOTAL 07/26/2024 PSA, TOTAL+FREE 01/27/2024 MICROALBUMIN, RANDOM 02/20/2018 MICROALBUMIN, RANDOM 08/05/2019 MICROALBUMIN, RANDOM 01/04/2019 MICROALBUMIN, RANDOM 10/17/2020 MICROALBUMIN, RANDOM 08/21/2017 MICROALBUMIN, RANDOM 06/20/2020 CBC w DIFF 02/02/2024 CBC w DIFF 06/05/2018 CBC w DIFF 01/21/2022 CBC w DIFF 07/30/2022 CBC w DIFF 07/24/2023 CBC w DIFF 02/20/2018 CBC w DIFF 12/09/2019 CBC w DIFF 02/16/2021 CBC w DIFF 11/20/2017 CBC w DIFF 09/17/2021 CBC w DIFF 06/18/2021 CBC w DIFF 04/22/2022 CBC w DIFF 08/05/2019 CBC w DIFF 05/06/2019 CBC w DIFF 01/04/2019 CBC w DIFF 10/17/2020 CBC w DIFF 08/21/2017 CBC w DIFF 09/04/2018 CBC w DIFF 06/20/2020 CBC w DIFF 05/06/2017 CBC w DIFF 01/22/2023 CBC w DIFF 03/20/2020 CBC w DIFF 10/29/2022 CBC WITH AUTO DIFF 04/27/2024 CBC WITH AUTO DIFF 07/26/2024 CBC WITH AUTO DIFF 04/24/2023 CBC WITH AUTO DIFF 10/24/2023 CBC WITH AUTO DIFF 01/27/2024 Lipid Panel 04/27/2024 Lipid Panel 07/26/2024 Lipid Panel 07/24/2023 Lipid Panel 04/24/2023 Lipid Panel 10/24/2023 Lipid Panel 02/16/2021 Lipid Panel 01/27/2024 Lipid Panel 06/18/2021 Lipid Panel 04/22/2022 PSA Free and Total 02/02/2024 Microalbumin, Random 04/27/2024 Microalbumin, Random 07/24/2023 Microalbumin, Random 04/24/2023 Microalbumin, Random 10/24/2023 Microalbumin, Random 02/16/2021 Microalbumin, Random 04/22/2022 XR hip LT w PEL1V 10/13/2024 Hemoglobin A1c 04/22/2022 Hemoglobin A1c 07/26/2024 Hemoglobin A1c 04/27/2024 Hemoglobin A1c 07/24/2023 Hemoglobin A1c 04/24/2023 Hemoglobin A1c 10/24/2023 Next Appt Details Provider Name:Ehsan Perez, 10/26/2024 10:15:00 AM, [address] [place] [address] [address], [place], [phone], Provider Name:Ehsan Perez, 01/27/2025 10:00:00 AM, [address] [place] [address] [address], [place], [address], Insurance Providers Payer Name Payer Address Payer Phone Subscriber Number Group Number Insured Name Patient Relationship to Insured Coverage Start Date Coverage End Date MEDICARE NGS [address] [place] [address] [phone] [id number] Ramakrishna Locke Self - patient is the insured [facility] CLAIM DIV [address] [place] [address] [id number] Ramakrishna Locke Self - patient is the insured Medical (General) History Medical History History ICD Code Coronary artery disease I25.10 Bilateral cataracts H26.9 Obesity E66.9 Hyperlipidemia E78.5 Essential hypertension I10 Diabetes E11.9 Hernia K46.9 multiple traumatic right rib fractures. 2017, surgically corrected Surgical History Surgery Date(Month/Year) appendectomy inguinal herniorrhaphy three-vessel coronary artery bypass delvis ting rib fractures with surgical repair surgical repair right-sided flail chest 01/2017 No history Hospitalization History Reason Date(Month/Year) No history
--- OUTSIDE RECORDS SUMMARY | 2024-10-13 12:42 | XMS_ITS ---
Author Organization Ehsan Perez III, MD Address [address] [place] [address] [place] [address] Care Team Providers Care Machine Scallop Cutter Name Role Phone Ehsan Perez Primary Care Provider REASON FOR VISIT Message Social History Sex Assigned At : Social History Observation Description Sex Assigned At Male Encounters Encounter Location Date Provider Diagnosis Ehsan Perez III, MD [address] [place] [address] [address] [place] [address] 10/13/2024 Ehsan Perez Plan Of Treatment Next Appt Details Provider Name:Ehsan Perez, 10/26/2024 10:15:00 AM, [address] [place] [address] [place], [address], Provider Name:Ehsan Perez, 01/27/2025 10:00:00 AM, [address] [place] [address] [address], [place], [phone], Progress Notes * Fred LOCKEOB:1940 ( 84 yo M)Acc No.[id number]:10/13/2024 Patient:?Ramakrishna LOCKE :1940???Age:84 Y???Sex:Male Address:[address] [place] [address], [place] [address] * true * Date:? Generated for Jesika venegas/Marcus/eTransmitting on:?10/13/2024 12:42 PM EDT
--- OUTSIDE RECORDS SUMMARY | 2024-10-13 12:42 | XMS_ITS ---
Author Organization Ehsan Perez III, MD Address [address] [place] [address] [place] [address] Care Team Providers Care Production Line Operator Name Role Phone Ehsan Perez Primary Care Provider [phone] Allergies Allergen (clinical drug ingredient) Drug/Non Drug [...] HCl 500 MG TAKE 1 TABLET BY [facility] ONCE DAILY WITH A MEAL Active [...] Date Provider Diagnosis Ehsan Perez III, MD [address] [place] [address] [address] [place] [address] 04/27/2024 Ehsan Perez Obesity E66.9 ; Kaela [...] HCl 500 MG TAKE 1 TABLET BY [facility] ONCE DAILY WITH A MEAL Donepezil HCl 10 MG 1 tablet at bedtime Orally Once a day Pending Test Test Name Order Date PROFILE, FASTING (COMPREHENSIVE METABOLI C) 04/27/2024 CBC WITH AUTO DIFF 04/27/2024 Lipid Panel 04/27/2024 Microalbumin, Random 04/27/2024 Hemoglobin A1c 04/27/2024 Next Appt Details Follow Up: 3 Months, 18th of this month, Reason: OV, Eye check-up Provider Name:Ehsan Perez, 10/26/2024 10:15:00 AM, [address] [place] [address] [address], [place], [phone], Provider Name:Ehsan Perez, 01/27/2025 10:00:00 AM, [address] [place] [address] [address], [place], [phone], Progress Notes * Fred LOCKEOB:1940 ( 84 yo M)Acc No.[id number]:04/27/2024 Progress Notes Patient:?Ramakrishna LOCKE Provider:?Ehsan Perez MD :1940???Age:84 Y???Sex:Male Omar e:04/27/2024 Address:[address] [place] [address] [place]ary [id number] Subjective: * Chief Complaints: * ???Coronary artery [...] Tobacco Non-User?Aggressive non-smoker ???He was born in [place]. He has been to [place] for 25 years. He has no children. 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 * Medications:?TakingmetFORMIN HCl 500 MG Tablet TAKE [...] 33?L (Ref Range: >40 mg/dL) * Lab:[facility] * Collection Date 04/21/2024 [...] Perez MD Date:?07/2023 Generated for Mickiei ng/Marcus/eTransmitting on:?10/13/2024 12:42 PM EDT History and Physical Notes * HPI (History [...]
--- OUTSIDE RECORDS SUMMARY | 2024-10-13 12:42 | XMS_ITS ---
Author Organization Ehsan Perez III, MD Address [address] [place] [address] [place] [address] Care Team Providers Care Hand Cutter Name Role Phone Ehsan Perez Primary Care Provider Allergies Allergen (clinical drug ingredient) Drug/Non Drug Allergy documented on EMR Reaction Allergy Type Onset Date Status No Known Drug Allergy Unknown Drug Allergy Active REASON FOR VISIT Benign prostatic hypertrophy, Coronary artery disease, Obesity, Hyperlipidemia, Hypertension, Dementia Medications Medication SIG (Take, Route, Frequency, Duration) Notes Start Date End Date Status OneTouch Delica Lancets Fine 30G USE DIRECTED FOR TESTING BLOOD SUGARS FASTING ON MONDAYS, WEDNESDAYS, AND FRIDAYS Active OneTouch Ultra - as directed In Vitro use 1 strip to check blood sugar on Friday /Friday/ Friday09/09/2022 Active Donepezil HCl 10 MG 1 tablet at bedtime Orally Once a day Active Gabapentin 100 MG Orally Ac tive Furosemide 20 MG 1 tablet Orally Once a day Active Pantoprazole Sodium 40 MG 1 tablet Orall [...] HCl 500 MG TAKE 1 TABLET BY [facility] ONCE DAILY WITH A MEAL Active Accu-Chek Jeanette Plus w/Device as directed In Vitro Check blood glucose on Friday, Friday, Friday01/07/2020 Active Social History Tobacco Use: Social History Observation Description Date Details (start date - stop date) Never Smoker NA - NA Sex Assigned At : Social History Observation Description Sex Assigned At Male Tobacco Use/Smoking Question Answer Notes Patient is a nonsmoker Additional Findings: Tobacco Non-User Aggressive non-smoker Vital Signs Temperature 96.4 degrees Fahrenheit 07/27/19 25 Blood pressure systolic 109 mm Hg 07/27/19 25 Blood pressure diastolic 65 mm Hg 025 Heart Rate 87 /min 07/26/2024 Height 66 in 07/26/2024 Weight 196 lbs 07/26/2024 BMI 31.63 kg/m2 07/26/2024 Encounters Encounter Location Date Provider Diagnosis Ehsan Perez III, MD [address] [place] [address] [place] [address] 07/26/2024 Ehsan Perez Obesity E66.9 ; Diab etes E11.9 ; Hyperlipidemia E78.5 ; Essential hypertension I10 ; Benign prostatic hyperplasia, unspecified whether lower urinary tract symptoms present N40.0 ; Multiple rib fractures involving four or more ribs S22.49XA and Mild dementia with agitation, unspecified dementia type F03.A11 Assessments Encounter Date Diagnosis (ICD Code) Assessment Notes Treat ment Notes Treatment Clinical Notes 07/26/2024 Obesity (ICD-10 - E66.9) He has [...] No change in his regimen was made. 07/26/2024 Hyperlipidemia (ICD-10 - E78.5) The current fasting lipid profile shows good control of his cholesterol. No change in his regimen was necessary. 07/26/2024 Essential hypertension (ICD-10 - I10) His [...] Name Sig Start Date Stop Date Notes OneTouch Delica Lancets Fine 30G USE DIRECTED FOR TESTING BLOOD SUGARS FASTING ON MONDAYS, WEDNESDAYS, AND FRIDAYS OneTouch Ultra - as directed In Vitro use 1 strip to check blood sugar on Friday /Friday/ Friday09/09/2022 Donepezil HCl 10 MG 1 tablet at bedtime Orally Once a day Gabapentin 100 MG Orally Furosemide 20 MG 1 tablet Orally Once a day Pantoprazole Sodium 40 MG 1 tablet Orally Once a day Lisinopril-hydroCHLOROthiazi de 10-12.5 MG 1 tablet Orally Once a day Atorvastatin Calcium 20 MG 1 tablet Oral Once a day Metoprolol Succinate 50 MG 1 tablet Orally Once a day Aspirin 325 MG 1 tablet Orally Once a day metFORMIN HCl 500 MG TAKE 1 TABLET BY [facility] ONCE DAILY WITH A MEAL Accu-Chek Jeanette Plus w/Device as directe d In Vitro Check blood glucose on Friday, Friday, Friday01/07/2020 Pending Test Test Name Order Date PROFILE, FASTING (COMPREHENSIVE METABOLI C) 07/26/2024 PSA, TOTAL 07/26/2024 CBC WITH AUTO DIFF 07/26/2024 Lipid Panel 07/26/2024 Hemoglobin A1c 07/26/2024 Next Appt Details Follow Up: 3 Months, Reason: OV Provider Name:Ehsan Perez, 10/26/2024 10:15:00 AM, [address] [place] [address] [address], [place], [address], Provider Name:Ehsan Perez, 01/27/2025 10:00:00 AM, [address] [place] [address] [address], [place], [address], Progress Notes * Fred LOCKEOB:1940 ( 84 yo M)Acc No.[id number]:07/26/2024 Progress Notes Patient:?Ramakrishna LOCKE Provider:?Ehsan Perez MD :1940???Age:84 Y???Sex:Male Omar e:07/26/2024 Address:[address] [place] [address] [place] Means [id number] Subjective: * Chief Complaints: * ???Benign prostatic hypertro phyCoronary artery diseaseObesityHyperlipidemiaHypertensionDementia * HPI: ???COVID-19 Screening:?Questions?Have you had any new onset fever, chills, cough, congestion, sore throat, shortness of breath, muscle aches??No ???:? The patient, an 84-year-old male, has been experiencing difficulty sleeping at night, often waking up around 4:00 AM. He also reports occasional dozing off in his chair. He has been receiving shots for his vision, which he reports have been effective in reducing eye watering. He has been getting his blood work done at [facility]. He has lost about 6 lbs recently. He reports not needing to urinate during the night and has a good memory. He has been taking an unspecified pill, which he continues to take. He also reports that his hearing is good. Blood Sugar Level is 120. * ROS:?General/Constitutional:?pain?only normal aches and pains.?Chills?denies.?Fatigue?admits.?Fever?denies.?ENT:?Decreased hearing?mild.?Respiratory:?Cough?denies.?Cardiovascular:?Chest [...] Tobacco Non-User?Aggressive non-smoker ???He was born in [place]. He has been to [place] for 25 years. He has no children. 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 * Medications:?TakingAccu-Chek Jeanette Plus w/Device Kit as directed In [...] tablet at bedtime Orally Once a day metFORMIN HCl 500 MG Tablet TAKE 1 TABLET BY MOUTH ONCE DAILY WITH A MEAL Medication List reviewed and reconciled with the patientTaking Accu-Chek Jeanette Plus w/Device Kit as directed In Vitro Check blood glucose on Friday, Friday, Friday Taking Lisinopril-hydroCHLOROthiazide 10-12.5 MG Tablet 1 tablet Orally [...] tablet Orally Once a day Taking OneTouch Delzarina Lancets Fine 30G Miscellaneous USE DIRECTED FOR TESTING BLOOD SUGARS FASTING ON MONDAYS, WEDNESDAYS, AND FRIDAYS Taking OneTouch Ultra - Strip as directed In Vitro use 1 strip to check blood sugar on Friday /Friday/ Friday Taking Donepezil HCl 10 MG Tablet 1 tablet at bedtime Orally Once a day Taking metFORMIN HCl 500 MG Tablet TAKE 1 TABLET BY MOUTH ONCE DAILY WITH A MEAL Medication List reviewed and reconciled with the patient * Allergies:?No Known Drug All ergyno[Allergies Verified] Objective: * Vitals:?Ht: 66, Wt:196, BMI: 31.63, BP:109/65, HR:87, Temp:96.4, Wt-k.9. * ???Past Orders: Lab:Complete Blood Count Aut o Diff * Collection Date 07/21/2024 04/21/2024 01/20/2024 Collection Time 08:41 AM 08:28 AM 08:41 AM Order Date 07/21/2024 04/21/2024 01/20/2024 White Blood Count 7.7 (Ref Range: 4.8-10.8 X10*3/uL) 7.3 (Ref Range: 4.8-10.8 X10*3/uL) 6.8 (Ref Range: 4.8-10.8 X10*3/uL) Red Blood Count 5.32 (Ref Range: 4.60-5.80 X10*6/uL) 5.26 (Ref Range: 4.60-5.80 X10*6/uL) 5.16 (Ref Range: 4.60-5.80 X10*6/uL) Hemoglobin 16.4 (Ref Range: 14.0-18.0 g/dl) 16.4 (Ref Range: 14.0-18.0 g/dl) 16.3 (Ref Range: 14.0-18.0 g/dl) Hematocrit 47.9 (Ref Range: 42.0-52.0 %) 48.2 (Ref Range: 42.0-52.0 %) 46.7 (Ref Range: 42.0-52.0 %) Mean Corpuscular Volume 90.0 (Ref Range: 80.0-98.0 fL) 91.6 (Ref Range: 80.0-98.0 fL) 90.5 (Ref Range: 80.0-98.0 fL) Mean Corpuscular Hemoglobin 30.8 (Ref Range: 27.0-33.0 pg) 31.2 (Ref Range: 27.0-33.0 pg) 31.6 (Ref Range: 27.0-33.0 pg) Mean Corpuscular HGB Conc 34.2 (Ref Range: 31.0-36.0 g/dl) 34.0 (Ref Range: 31.0-36.0 g/dl) 34.9 (Ref Range: 31.0-36.0 g/dl) Red Cell Distribution Width 13.8 (Ref Range: 11.0-16.0 %) 13.7 (Ref Range: 11.0-16.0 %) 13.7 (Ref Range: 11.0-16.0 %) Platelet Count 237 (Ref Range: 160-400 X10*3/uL) 215 (Ref Range: 160-400 X10*3/uL) 181 (Ref Range: 160-400 X10*3/uL) Mean Platelet Volume 9.0?L (Ref Range: 9.4-12.4 fL) 9.2?L (Ref Range: 9.4-12.4 fL) 9.0?L (Ref Range: 9.4-12.4 fL) Neutrophils Percent Auto 57.7 (Ref Range: 45-73 %) 57.6 (Ref Range: 45-73 %) 56.2 (Ref Range: 45-73 %) Imm Gran Pct Auto 0.4 (Ref Range: 0.0-0.4 %) 0.3 (Ref Range: 0.0-0.4 %) 0.4 (Ref Range: 0.0-0.4 %) Lymphocytes Percent Auto 28.6 (Ref Range: 20-40 %) 29.6 (Ref Range: 20-40 %) 30.7 (Ref Range: 20-40 %) Monocytes Percent Auto 8.8 (Ref Range: 2-11 %) 9.5 (Ref Range: 2-11 %) 9.2 (Ref Range: 2-11 %) Eosinophils Percent Auto 3.8 (Ref Range: 0-4 %) 2.5 (Ref Range: 0-4 %) 2.8 (Ref Range: 0-4 %) Basophils Percent Auto 0.7 (Ref Range: 0-2 %) 0.5 (Ref Range: 0-2 %) 0.7 (Ref Range: 0-2 %) NRBC Pct Auto 0.0 (Ref Range: 0.0-0.2 /100WBC) 0.0 (Ref Range: 0.0-0.2 /100WBC) 0.0 (Ref Range: 0.0-0.2 /100WBC) Neutrophils Absolute Auto 4.4 (Ref Range: 2.0-8.3 x10*3/uL) 4.2 (Ref Range: 2.0-8.3 x10*3/uL) 3.8 (Ref Range: 2.0-8.3 x10*3/uL) Imm Gran Abs Auto 0.03 (Ref Range: 0.00-0.03 X10*3/uL) 0.02 (Ref Range: 0.00-0.03 X10*3/uL) 0.03 (Ref Range: 0.00-0.03 X10*3/uL) Lymphocytes Absolute Auto 2.2 (Ref Range: 1.2-4.9 X10*3/uL) 2.2 (Ref Range: 1.2-4.9 X10*3/uL) 2.1 (Ref Range: 1.2-4.9 X10*3/uL) Monocytes Absolute Auto 0.7 (Ref Range: 0.1-1.2 X10*3/uL) 0.7 (Ref Range: 0.1-1.2 X10*3/uL) 0.6 (Ref Range: 0.1-1.2 X10*3/uL) Eosinophils Absolute Auto 0.3 (Ref Range: 0.0-0.4 X10*3/uL) 0.2 (Ref Range: 0.0-0.4 X10*3/uL) 0.2 (Ref Range: 0.0-0.4 X10*3/uL) Basophils Absolute Auto 0.1 (Ref Range: 0.0-0.2 X10*3/uL) 0.0 (Ref Range: 0.0-0.2 X10*3/uL) 0.1 (Ref Range: 0.0-0.2 X10*3/uL) NRBC Abs Auto 0.000 (Ref Range: 0.0-0.012 X10*3/uL) 0.000 (Ref Range: 0.0-0.012 X10*3/uL) 0.000 (Ref Range: 0.0-0.012 X10*3/uL) * Lab:Hemoglobin A1c * Collection Date 07/21/2024 01/20/2024 10/17/2023 Collection Time 08:41 AM 08:41 AM 08:32 AM Order Date 07/21/2024 01/20/2024 10/17/2023 Hemoglobin A1c % 5.4 (Ref Range: <6.0 %) 5.5 (Ref Range: <6.0 %) 5.8 (Ref Range: <6.0 %) Estimated Average Glucose 108 (Ref Range: mg/dL) 111 (Ref Range: mg/dL) 120 (Ref Range: mg/dL) * Lab:Comprehensive [place]. Pane l Fast * Collection Date 07/21/2024 04/21/2024 01/20/2024 Collection Time 08:41 AM 08:28 AM 08:41 AM Order Date 07/21/2024 04/21/2024 01/20/2024 Sodium 140 (Ref Range: 135-145 mmol/L) 140 (Ref Range: 135-145 mmol/L) 138 (Ref Range: 135-145 mmol/L) Bilirubin Total 1.4?H (Ref Range: 0.0-1.0 mg/dL) 1.4?H (Ref Range: 0.0-1.0 mg/dL) 1.4?H (Ref Range: 0.0-1.0 mg/dL) Aspartate Amino Transferase 24 (Ref Range: 5-37 U/L) 21 (Ref Range: 5-37 U/L) 16 (Ref Range: 5-37 U/L) Alanine Aminotransferase 14 (Ref Range: 0-40 U/L) 18 (Ref Range: 0-40 U/L) 11 (Ref Range: 0-40 U/L) Total Protein 7.7 (Ref Range: 6.5-8.0 g/dL) 7.0 (Ref Range: 6.5-8.0 g/dL) 7.0 (Ref Range: 6.5-8.0 g/dL) Albumin Level 4.3 (Ref Range: 3.5-5.0 g/dL) 4.2 (Ref Range: 3.5-5.0 g/dL) 4.3 (Ref Range: 3.5-5.0 g/dL) Alkaline Phosphatase 94 (Ref Range: 39-117 U/L) 76 (Ref Range: 39-117 U/L) 72 (Ref Range: 39-117 U/L) Potassium 4.6 (Ref Range: 3.3-5.1 mmol/L) 4.2 (Ref Range: 3.3-5.1 mmol/L) 4.4 (Ref Range: 3.3-5.1 mmol/L) Chloride 106 (Ref Range: 96-108 mmol/L) 107 (Ref Range: 96-108 mmol/L) 105 (Ref Range: 96-108 mmol/L) Carbon Dioxide 20?L (Ref Range: 22-29 mmol/L) 21?L (Ref Range: 22-29 mmol/L) 23 (Ref Range: 22-29 mmol/L) Anion Gap 19 (Ref Range: 12-20) 16 (Ref Range: 12-20) 14 (Ref Range: 12-20) Blood Urea Nitrogen 17?H (Ref Range: 9-16 mg/dL) 21?H (Ref Range: 9-16 mg/dL) 15 (Ref Range: 9-16 mg/dL) Creatinine 1.00 (Ref Range: 0.5-1.4 mg/dL) 1.08 (Ref Range: 0.5-1.4 mg/dL) 1.08 (Ref Range: 0.5-1.4 mg/dL) Estimated Glomerular Filt Rate > 60 > 60 > 60 Glucose Fasting 120?H (Ref Range: 60-99 mg/dL) 154?H (Ref Range: 60-99 mg/dL) 126?H (Ref Range: 60-99 mg/dL) Calcium 9.7 (Ref Range: 8.4-10.2 mg/dL) 9.6 (Ref Range: 8.4-10.2 mg/dL) 9.6 (Ref Range: 8.4-10.2 mg/dL) * Lab:Lipid Panel * Collection Date 07/21/2024 04/21/2024 01/20/2024 Collection Time 08:41 AM 08:28 AM 08:41 AM Order Date 07/21/2024 04/21/2024 01/20/2024 Triglycerides 148 (Ref Range: <150 mg/dL) 126 (Ref Range: <150 mg/dL) 142 (Ref Range: <150 mg/dL) Cholesterol 116 (Ref Range: <200 mg/dL) 115 (Ref Range: <200 mg/dL) 120 (Ref Range: <200 mg/dL) LDL Cholesterol Calculated 56 (Ref Range: <100 mg/dL) 57 (Ref Range: <100 mg/dL) 59 (Ref Range: <100 mg/dL) HDL Cholesterol 31?L (Ref Range: >40 mg/dL) 33?L (Ref Range: >40 mg/dL) 33?L (Ref Range: >40 mg/dL) * Lab:Microalbumin, Random * Collection Date 07/21/2024 01/20/2024 10/17/2023 Collection Time 08:37 AM 08:39 AM 08:30 AM Order Date 07/21/2024 01/20/2024 10/17/2023 Creatinine Urine 198.88 (Ref Range: mg/dL) 216.39 (Ref Range: mg/dL) 228.04 (Ref Range: mg/dL) Microalbumin Urine 16.0 (Ref Range: mg/L) 19.0 (Ref Range: mg/L) 15.0 (Ref Range: mg/L) Microalbum Creatinine Ratio Ur 8.0 (Ref Range: <30 ug/mg cr) 8.7 (Ref Range: <30 ug/mg cr) 6.5 (Ref Range: <30 ug/mg cr) * Examination: ???General Examination: ?GENERAL APPEARANCE:?pleasant, well nourished, well developed, in no acute distress, calm and relaxed, obese, man.?HEAD:?atraumatic, normocephalic.?EYES:?eomi, perrla, anicteric, conjugate.?EARS:?normal.?NOSE:?septum intact.?ORAL CAVITY:?normal, unremarkable.?NECK/THYROID:?no jugular venous distention, no carotid bruit, thyroid normal.?LYMPH NODES:?no enlarged lymph nodes,spleen normal.?SKIN:?no suspicious lesions, anicteric.?HEART:?no clicks, gallops, murmurs, or rubs, regular rhythm, S1, S2 normal, no s3, or vascular bruits.?LUNGS:?clear to auscultation, Old scars right thorax.?BREASTS:??no masses palpable bilaterally.?ABDOMEN:?bowel sounds normal, no ascites, no organomegaly, no mass, centripital obesity.?RECTAL EXAM:?not examined.?MUSCULOSKELETAL:?extremities unremarkable, no clubbing, cyanosis or edema.?PERIPHERAL PULSES:?normal.?NEUROLOGIC:?alert and oriented, cranial nerves 2-12 grossly intact, deep tendon reflexes 2+ symmetrical, motor strength normal upper and lower extremities, sensory exam intact, Mild dementia with moderate memory loss and gait intact speech clear.?PSYCH:?alert, orientedTo person and place, mild to moderate dementia.? Assessment: * Assessment: 1.?Diabetes - E11.9 (Primary )???Notes :He has been compliant with medications.? His hemoglobin A1c is 5.4.? He is up-to-date with ophthalmology.? No change in his regimen was made.???2.?Obesity - E66.9???Notes :He has lost 3 pounds and remains obese. ?We discussed weight reduction strategies. We discussed diet and nutrition today. He made a plan to lose weight at a rate of one half of a pound per week.???3.?Hyperlipidemia - E78.5???Notes :The current fasting lipid profile shows good control of his cholesterol.? No change in his regimen was necessary.???4.?Essential hypertension - I10???Notes :His blood pressure is Controlled.. No change in his regimen was needed. I strongly recommend aggressive sodium restriction and ongoing weight loss.???5.?Benign prostatic hyperplasia, unspecified whether lower urinary tract symptoms present - N40.0???Notes :He rises from sleep once a night to urinate. We discussed lifestyle modifications he could make to reduce nocturia.???6.?Multiple rib fractures involving four or more ribs - S22.49XA???Notes :The area has healed and he is breathing comfortably. He has a long vertical scar over his right chest wall but it is not painful when he coughs and sneezes.???7.?Mild dementia with agitation, unspecified dementia type - F03.A11???Notes :He has become increasingly for doubtful times and places. He has shown some agitation home with anger, throwing things and using language. After discussing this with him and his we have begun him on donepezil.??? Plan: * Treatment: 2.?Obesity? Continue Donepezil HCl Tablet, 10 MG, 1 tablet at bedtime, Orally, Once a day.?LAB: PROFILE, FASTING (COMPREHENSIVE METABOLIC) ?LAB: PSA, TOTAL ?LAB: CBC WITH AUTO DIFF ?LAB: Lipid Panel ?LAB: Hemoglobin A1c 3.?Hyperlipidemia?LAB: PROFILE, FASTING (COMPREHENSIVE METABOLIC) ?LAB: PSA, TOTAL ?LAB: CBC WITH AUTO DIFF ?LAB: Lipid Panel ?LAB: Hemoglobin A1c 4.?Others? Continue metFORMIN HCl [...] 1 lb per week.? * Follow Up:?3 Months (Reason: OV) * Images: * Sign off status: Completed true * Provider:?Ehsan Perez MD Date:?07/2024 Generated for Jesika venegas/Marcus/Amisha on:?10/13/2024 12:42 PM EDT History and Physical Notes * HPI (History of Present Illness) Category Sub-Category Detail Notes COVID-19 Screening Questions Have you had any new onset fever, chills, cough, congestion, sore throat, shortness of breath, muscle aches?: No Examination Category Sub-Category Detail Notes General Examination GENERAL APPEARANCE: pleasant , well nourished, well developed, in no acute distress, calm and relaxed, obese, man HEAD: atraumatic, normocep halic EYES: eomi, perrla, anicte magdalene, conjugate EARS: normal NOSE: septum intact NECK/THYROID: no jugular venous di stention, no carotid bruit, thyroid normal HEART: no clicks, gallops, murmurs, or rubs, regular rhythm, S1, S2 normal, no s3, or vascular bruits LUNGS: clear to auscultatio n, Old scars right thorax ABDOMEN: bowel sounds normal, no ascites, no organomegaly, no mass, centripital obesity NEUROLOGIC: alert and oriented, cranial nerves 2-12 grossly intact, deep tendon reflexes 2+ symmetrical, motor strength normal upper and lower extremities, sensory exam intact, Mild dementia with moderate memory loss and gait intact speech clear SKIN: no suspicious lesion s, anicteric PERIPHERAL PULSES: normal BREASTS: no masses palpable b ilaterally MUSCULOSKELETAL: extremities unremark able, no clubbing, cyanosis or edema LYMPH NODES: no enlarged lymph no dilshad,spleen normal RECTAL EXAM: not examined PSYCH: alert, orientedTo pe rson and place, mild to moderate dementia ORAL CAVITY: normal, unremarkable
[2024-10-13] MEDS: Lidocaine 4 % Patch ADH..PATCH 1 PATCH TRANSDERMA (12:57)
[2024-10-13] MEDS: Acetaminophen 325 MG TABLET 975 MG PO (12:57)
--- NOTE | 2024-10-13 15:00 | PC.NURSE ---
Patient received pelvic/hip xray, results show no fracture, dislocation, or suspicious bone lesion and normal alignment. PRN medication effective, pain rated 8/10 by patient. Patient unable to provide UA sample at this time will reattempt
[2024-10-13 15:35] VITALS: BP 130/87; PULSE 81; RESP 18; TEMP 36.8; O2SAT 99
== END 2024-10-13 15:35 | disposition home or self-care (01) ==
PROVIDERS: Emergency Provider Emergency Medicine; PCP Internal Medicine Medical Oncology
DX: M16.12 Unilateral primary osteoarthritis, left hip (principal); M25.552 Pain in left hip; R10.2 Pelvic and perineal pain
CPT/HCPCS: 73502; 99283; 99284

== ENCOUNTER → 2024-10-13 11:31 | Outpatient (BNV) | payer MEDICARE, SELFPAY | PROVIDERS: Emergency Provider Emergency Medicine; PCP Internal Medicine Medical Oncology; Visit Provider Radiology Diagnostic Radiology | DX: M16.0 Bilateral primary osteoarthritis of hip (principal) | CPT/HCPCS: 73502 ==

== ENCOUNTER 2024-10-23 08:17 | Outpatient (REF) | payer MEDICARE, SELFPAY ==
--- OUTSIDE RECORDS SUMMARY | 2024-10-23 08:21 | XMS_ITS ---
Author Organization Ehsan Perez III, MD Address [address] [place] [address] [place] [address] Care Team Providers Care Media Executive Name Role Phone Ehsan Perez Primary Care Provider REASON FOR VISIT Message Social History Sex Assigned At : Social History Observation Description Sex Assigned At Male Encounters Encounter Location Date Provider Diagnosis Ehsan Perez III, MD [address] [place] [address] [address] [place] [address] 10/14/2024 Ehsan Perez Plan Of Treatment Next Appt Details Provider Name:Ehsan Perez, 10/26/2024 10:15:00 AM, [address] [place] [address] [place], [address], Provider Name:Ehsan Perez, 01/27/2025 10:00:00 AM, [address] [place] [address] MOIS[place] GENA[place], [place], [address], Progress Notes * Fred LOCKEOB:1940 ( 84 yo M)Acc No.[id number]:10/14/2024 Patient:?Ramakrishna LOCKE :1940???Age:84 Y???Sex:Male Address:[address] [place] [address], [place] [address] * true * Date:? Generated for Jesika venegas/Marcus/eTransmitting on:?10/23/2024 08:20 AM EDT
[2024-10-23 08:31] LABS: MANUAL DIFF FLAG NO
[2024-10-23 09:36] LABS: Basophils Percent Auto 0.3 % (0-2); Eosinophils Absolute Auto 0.2 X10*3/uL (0.0-0.4); Eosinophils Percent Auto 2.1 % (0-4); Hematocrit 47.9 % (42.0-52.0); Hemoglobin 16.5 g/dl (14.0-18.0); Imm Gran Abs Auto 0.02 X10*3/uL (0.00-0.03); Imm Gran Pct Auto 0.2 % (0.0-0.4); Lymphocytes Absolute Auto 2.2 X10*3/uL (1.2-4.9); Lymphocytes Percent Auto 25.5 % (20-40); Mean Corpuscular HGB Conc 34.4 g/dl (31.0-36.0); Mean Corpuscular Hemoglobin 30.8 pg (27.0-33.0); Mean Corpuscular Volume 89.5 fL (80.0-98.0); Mean Platelet Volume 9.1 fL (9.4-12.4); Monocytes Absolute Auto 0.8 X10*3/uL (0.1-1.2); Monocytes Percent Auto 9.4 % (2-11); Neutrophils Absolute Auto 5.4 x10*3/uL (2.0-8.3); Neutrophils Percent Auto 62.5 % (45-73); Platelet Count 197 X10*3/uL (160-400); Red Blood Count 5.35 X10*6/uL (4.60-5.80); Red Cell Distribution Width 14.2 % (11.0-16.0); White Blood Count 8.7 X10*3/uL (4.8-10.8)
[2024-10-23 09:50] LABS: Estimated Average Glucose 114 mg/dL; Hemoglobin A1c % 5.6 % (<6.0)
[2024-10-23 10:08] LABS: Alanine Aminotransferase 20 U/L (0-40); Albumin Level 4.4 g/dL (3.5-5.0); Alkaline Phosphatase 77 U/L (39-117); Anion Gap 18 (12-20); Aspartate Amino Transferase 21 U/L (5-37); Bilirubin Total 1.4 mg/dL (0.0-1.0); Blood Urea Nitrogen 19 mg/dL (9-16); Calcium 9.7 mg/dL (8.4-10.2); Carbon Dioxide 18 mmol/L (22-29); Chloride 107 mmol/L (96-108); Cholesterol 105 mg/dL (<200); Estimated Glomerular Filt Rate > 60; Glucose Fasting 127 mg/dL (60-99); HDL Cholesterol 32 mg/dL (>40); LDL Cholesterol Calculated 46 mg/dL (<100); Potassium 4.3 mmol/L (3.3-5.1); Sodium 139 mmol/L (135-145); Total Protein 7.1 g/dL (6.5-8.0); Triglycerides 139 mg/dL (<150)
[2024-10-23 10:19] LABS: Prostate Specific Antigen 12.34 ng/mL (<0.05-4.0)
== END 2024-10-23 08:18 | disposition home or self-care (01) ==
LOC: HO.LAB 08:17
PROVIDERS: PCP Internal Medicine Medical Oncology; Visit Provider Internal Medicine Medical Oncology
DX: E66.9 Obesity, unspecified (principal); Z12.5 Encounter for screening for malignant neoplasm of prostate; E78.5 Hyperlipidemia, unspecified; E11.9 Type 2 diabetes mellitus without complications; R97.20 Elevated prostate specific antigen [PSA]
CPT/HCPCS: 36415; 80053; 80061; 83036; 84153; 85025

== ENCOUNTER 2025-01-20 08:33 | Outpatient (REF) | payer MEDICARE, SELFPAY ==
--- OUTSIDE RECORDS SUMMARY | 2024-10-15 07:15 | XMS_ITS ---
Author Organization Ehsan Perez III, MD Address [address] [place] [address] [place] [address] Care Team Providers Care Credit Administration Specialist Name Role Phone Ehsan Perez Primary Care Provider [phone] Allergies Allergen (clinical drug ingredient) Drug/Non Drug [...] Problem Status W/U Status Risk Notes Problem [id number] Acute pain of left hip (M25.552) Active [...] Date Provider Diagnosis Ehsan Perez III, MD [address] [place] [address] [address] [place], FAYE [address] 10/15/2024 Ehsan Perez Obesity E66.9 ; Acut [...] Scheduled, Verena son: OV Provider Name:Ehsan Perez, 01/27/2025 10:00:00 AM, [address] [place] [address] [place], [address], Progress Notes * Fred LOCKEOB:1940 ( 84 yo M)Acc No.[id number]:10/15/2024 Patient: Ramakrishna CABELLO Provider: Kelsie Perez MD :1940 A ge:84 Y S ex:Male Date:10/15/2024 Address:[address] [place] [address] [id number] Subjective: * Chief Complaints: * L ateral left hip pain allCoronary artery diseaseObesityHypertensionDiabetesBenign prostatic hypertrophyMild dementiaAbnormal PSA * HPI: * : He recently developed severe pain in his left hip. He went to the emergency room at [facility]. X-rays were obtained that showed mild [...] of provider rendering services: { ...} [address] [facility] [address] L ocation of patient: kathleen wade listed in demographics for today's visit P atient identification confirmed using: AISHA López ame T elehealth method: T elephone only. Patient not [...] T obacco Use: T obacco Use/Smoking P tali is a n onsmoker A dditional Findings: Tobacco Non-User A ggressive non-smoker John pinzon was born in [place]. He has been to [place] for 25 years. He has no children. 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 * Medications: T akingmetFORMIN HCl 500 MG [...] X10*3/uL) 0.000 (Ref Range: 0.0-0.012 X10*3/uL) * Lab:[facility] * Collection Date 07/21/2024 04/21/2024 [...] true * Provider: Kelsie Perez MD Date: 0 10/15/2024 Generated for Jesika venegas/Marcus/Amisha on: 0 01/20/2025 09:13 AM EDT History and Physical Notes * HPI (History of Present Illness) Category Sub-Category Detail Notes Telehealth Location of [facility] rendering services:: {...} [address] [facility] [address] Location of patient:: address listed in demographics [...]
--- OUTSIDE RECORDS SUMMARY | 2024-10-19 06:41 | XMS_ITS ---
Author Organization Ehsan Perez III, MD Address [address] [place] [address] [place] [address] Care Team Providers Care Fan Installer Name Role Phone Ehsan Perez Primary Care Provider [phone] REASON FOR VISIT told patient to call Social History Sex Assigned At : Social History Observation Description Sex Assigned At Male Encounters Encounter Location Date Provider Diagnosis Ehsan Perez III, MD [address] [place] [address] [address] [place] [address] 10/19/2024 Ehsan Perez Plan Of Treatment Next Appt Details Provider Name:Ehsan Perez, 01/27/2025 10:00:00 AM, [address] [place] [address] [place], [address], Progress Notes * Fred LOCKEOB:1940 ( 84 yo M)Acc No.[id number]:10/19/2024 Patient: Ramakrishna CABELLO :1940 A ge:84 Y S ex:Male Address:[address] [place] [address] [place] [address] * true * Date: Generated for Jesika venegas/Marcus/eTransmitting on: 0 01/20/2025 09:12 AM EDT
--- OUTSIDE RECORDS SUMMARY | 2024-10-26 06:15 | XMS_ITS ---
Author Organization Ehsan Perez III, MD Address [address] [place] [address] [place] [address] Care Team Providers Care Equipment Scheduler Name Role Phone Ehsan Perez Primary Care Provider [phone] Allergies Allergen (clinical drug ingredient) Drug/Non Drug [...] HCl 500 MG TAKE 1 TABLET BY [facility] ONCE DAILY WITH A MEAL Active [...] Date Provider Diagnosis Ehsan Perez III, MD [address] [place] [address] [place] [address] 10/26/2024 Ehsan Perez Obesity E66.9 ; Kaela [...] compliant with his medications. He sees his city jailer regularly. 10/26/2024 Benign prostatic hyperplasia, unspecified whether [...] HCl 500 MG TAKE 1 TABLET BY [facility] ONCE DAILY WITH A MEAL Accu-Chek Jeanette Plus w/Device as directe d In Vitro Check blood glucose on Friday, Friday, Friday01/07/2020 Pending Test Test Name Order Date PROFILE, FASTING (COMPREHENSIVE METABOLI C) 10/26/2024 CBC w DIFF 10/26/2024 Lipid Panel 10/26/2024 Hemoglobin A1c 10/26/2024 Next Appt Details Follow Up: As Scheduled, Verena son: Annual Exam Provider Name:Ehsan Perez, 01/27/2025 10:00:00 AM, [address] [place] [address] [address] [place] [address], [place], [address], Progress Notes * Fred LOCKEOB:1940 ( 84 yo M)Acc No.[id number]:10/26/2024 Progress Notes Patient: Ramakrishna CABELLO Provider: Kelsie Perez MD :1940 A ge:84 Y S ex:Male Date:10/26/2024 Address:[address] [place] [address] [id number] Subjective: * Chief Complaints: * C oronary artery diseaseObesityDiabetesHyperlipidemiaHypertensionBenign prostatic hypertrophyAcute pain left hip * HPI: C OVID-19 Screening: John pinzon returns for medical management. He has seen his city jailer and is receiving an injection in his left eye every 4 weeks. He is unable to give me as a diagnosis and I do not have a report from the city jailer. He rises from sleep twice a night [...] ggressive non-smoker John pinzon was born in [place]. He has been to [place] for 25 years. He has no children. 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 * Medications: T akingmetFORMIN HCl 500 MG [...] Caroline. Antone l Fast * Collection Date 10/23/2024 07/21/2024 [...] Examination: G eneral Examination: GENERAL APPEARANCE: p kulwant, well nourished, well developed, in no acute [...] compliant with his medications.? He sees his city jailer regularly. 5 . B enign prostatic hyperplasia, [...] FASTING ON MONDAYS, WEDNESDAYS, AND FRIDAYS; C Green Shoots DistributionTouch Ultra Strip, -, as directed, In Vitro, [...] true * Provider: Kelsie Perez MD Date: 10/26/2024 Generated for Jesika venegas/Marcus/Jessicaitting on: 01/20/2025 09:12 AM EDT History and Physical Notes * [...]
[2025-01-20 09:05] LABS: MANUAL DIFF FLAG NO
--- OUTSIDE RECORDS SUMMARY | 2025-01-20 09:12 | XMS_ITS | Patient Health Record ---
Author Organization [facility] Address [address] [place] [address] Care Team Providers Care Processing Assistant Name Role Phone Ehsan Perez MD Primary Care Provider Unavailab leydi Serna Jr Elier Unavailable [phone] Reason For Referral No Information Medications Medication SIG (Take, Route, Frequency, Duration) Notes Start Date End Date Status Colyte with Flavor Packs 240 GM As directed Orally Over the specified time. 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.66) Active confirmed Problem 80358151 Rectal bleeding (K62.5) Active confirmed Plan Of Treatment Future Test Test Name Order Date COLONOSCOPY 02/09/2015 Insurance Providers Payer Name Payer Address Payer Phone Subscriber Number Group Number Insured Name Patient Relationship to Insured Coverage Start Date Coverage End Date MEDICARE OF [place] [address] [place] [address] [id number] JOSE ALFREDO [place] Self - patient is the insured [facility] SUPPLEMENTAL PLAN [address] [place] [address] [id number] JOSE ALFREDO [place] Self - patient is the insured Medical (General) History Medical History History ICD Code Colonoscopy, 1998, 2009, hyperplastic po lyps, tubular adenomas Coronary artery disease with history of coronary artery bypass grafting Denies DM,CVA,Lung disease,renal disease Surgical History Surgery Date(Month/Year) Appendectomy bypass hernia repair
--- OUTSIDE RECORDS SUMMARY | 2025-01-20 09:13 | XMS_ITS | Patient Health Record ---
Author Organization Ehsan Perez III, MD Address [address] [place] [address] [place] [address] Care Team Providers Care Re Dye Hand Name Role Phone Ehsan Perez Primary Care [...] ff Reviewed date:04/22/2024 07:05:44 AM Interpretation: Performing Lab:[facility], [address] [place] [address] Notes/Report: White Blood Count 7.3 4.8-10.8 X10*3/uL [...] NRBC Abs Auto 0.000 0.0-0.012 X10*3/uL [facility] [place]. Panel Fa st Reviewed date:04/22/2024 07:05:44 AM Interpretation: Performing Lab:[facility], [address] [place] [phone] Notes/Report: Sodium 140 135-145 mmol/L Potassium 4.2 [...] Panel Reviewed date:04/22/2024 07:05:44 AM Interpretation: Performing Lab:[address] [address] Notes/Report: Triglycerides 126 <150 mg/dL Desirable Triglyceride: [...] Total Reviewed date:05/19/2024 08:50:49 AM Interpretation: Performing Lab:[facility], [address] [place] [address] Notes/Report: Prostate Specific Ag Total 6.0 < [...] 30 93 9 (3)Catalona et al.:SABA 277: [phone] (1996) (4)Catalona et al.:SABA 279: 3135-5798 (1997) (x)These estimates vary with age, ethnicity, [...] of disease. THIS TEST WAS PERFORMED AT: [facility] [address] [place] [phone] TOSHIA JENKINS MD Free Prostate Spec Ag 1.4 Complete Blood Count Auto Di ff Reviewed date:07/26/2024 11:24:32 AM Interpretation: Performing Lab:[facility], [address] [place] [phone] Notes/Report: White Blood Count 7.7 4.8-10.8 X10*3/uL [...] NRBC Abs Auto 0.000 0.0-0.012 X10*3/uL Comprehensive [place]. Panel Fa st Reviewed date:07/26/2024 11:24:32 AM Interpretation: Performing Lab:[facility], [address] [place] [address] Notes/Report: Sodium 140 135-145 mmol/L Potassium 4.6 [...] Panel Reviewed date:07/26/2024 11:24:32 AM Interpretation: Performing Lab:[facility], [address] [place] [phone] Notes/Report: Triglycerides 148 <150 mg/dL Desirable Triglyceride: [...] Random Reviewed date:07/26/2024 11:24:32 AM Interpretation: Performing Lab:[address] [address] Notes/Report: Creatinine Urine 198.88 Microalbumin Urine 16.0 Microalbum/Creatinine Ratio Ur 8.0 <30 ug/mg cr Albumin/Creatinine Ratio Reference Ranges: Normal: < 30 ug/mg creatinine Microalbuminuria: 30 - 300 ug/mg creatinine Clinical Albuminuria: > 300 ug/mg creatinine Hemoglobin A1c Reviewed date:07/26/2024 11:24:32 AM Interpretation: Performing Lab:[facility], [address] [place] [phone] Notes/Report: Hemoglobin A1c % 5.4 <6.0 % [...] average glucose, using the formula of the I8E-Yukygsx Average Glucose study (ADAG), Diabetes Care, Vol.31,#8, 2007 XR hip LT w PEL1V Reviewed date:10/14/2024 05:27:14 AM Interpretation: Performing Lab: Notes/Report: [address] [address] XRay Report Signed Patient: Ramakrishna Locke MR#: [id number] 0 : 1940 Acct:[id number] Age/Sex: 84 / M ADM Date: 10/13/24 Loc: HO.ED Attending Dr: Ordering Physician: Lexi Moyer NP Date of Service: 10/13/24 Procedure(s): XR hip LT w PEL1V Accession Number(s): [id number] cc: Ehsan Perez MD; Lexi Moyer NP [...] 10/13/24 1206 DD/ 1131 TD/TT: 10/13/24 1150 [facility]: [address] [address] XRay Report Signed Patient: Ramakrishna Locke MR#: [id number] 0 : 1940 Acct:[id number] Age/Sex: 84 / M ADM Date: 10/13/24 Loc: HO.ED Attending Dr: Ordering Physician: Lexi Moyer NP Date of Service: 10/13/24 Procedure(s): XR hip LT w PEL1V Accession Number(s): [id number] cc: Ehsan Perez MD; Lexi Moyer NP [...] 10/13/24 1206 DD/ 1131 TD/TT: 10/13/24 1150 [facility]: Complete Blood Count Auto Di ff Reviewed date:10/24/2024 07:53:19 PM Interpretation: Performing Lab:[facility], [address] [place] [phone] Notes/Report: White Blood Count 8.7 4.8-10.8 X10*3/uL Red Blood Count 5.35 4.60-5.80 X10*6/uL Hemoglobin 16.5 14.0-18.0 g/dl Hematocrit 47.9 42.0-52.0 % Mean Corpuscular Volume 89.5 80.0-98.0 fL Mean Corpuscular Hemoglobin 30.8 27.0-33.0 pg Mean Corpuscular HGB Conc 34.4 31.0-36.0 g/dl Red Cell Distribution Width 14.2 11.0-16.0 % Platelet Count 197 160-400 X10*3/uL Mean Platelet Volume 9.1 9.4-12.4 fL Neutrophils Percent Auto 62.5 45-73 % Imm Gran Pct Auto 0.2 0.0-0.4 % Lymphocytes Percent Auto 25.5 20-40 % Monocytes Percent Auto 9.4 2-11 % Eosinophils Percent Auto 2.1 0-4 % Basophils Percent Auto 0.3 0-2 % NRBC Pct Auto 0.0 0.0-0.2 /100WBC Neutrophils Absolute Auto 5.4 2.0-8.3 x10*3/u L Imm Gran Abs Auto 0.02 0.00-0.03 X10*3/uL Lymphocytes Absolute Auto 2.2 1.2-4.9 X10*3/u L Monocytes Absolute Auto 0.8 0.1-1.2 X10*3/uL Eosinophils Absolute Auto 0.2 0.0-0.4 X10*3/u L Basophils Absolute Auto 0.0 0.0-0.2 X10*3/uL NRBC Abs Auto 0.000 0.0-0.012 X10*3/uL Comprehensive [place]. Panel Fa st Reviewed date:10/24/2024 07:53:19 PM Interpretation: Performing Lab:[facility], [address] [place] [phone] Notes/Report: Sodium 139 135-145 mmol/L Potassium 4.3 3.3-5.1 mmol/L Slight Hemolysis.Interpret result with caution. Chloride 107 96-108 mmol/L Carbon Dioxide 18 22-29 mmol/L Anion Gap 18 12-20 Blood Urea Nitrogen 19 9-16 mg/dL Creatinine 0.89 0.5-1.4 mg/dL Estimated Glomerular Filt Rate > 60 Chronic Kidney Disease: Estimated GFR < 60 mL/min/1.73m2 Severe Kidney Disease: Estimated GFR < 15 mL/min/1.73m2 Glucose Fasting 127 60-99 mg/dL A fasting glucose of 126 mg/dl or greater on more than one occasion is considered diagnostic of diabetes. Calcium 9.7 8.4-10.2 mg/dL Bilirubin Total 1.4 0.0-1.0 mg/dL Slight Icte ghada. Aspartate Amino Transferase 21 5-37 U/L Slight Hemolysis.Interpret result with caution. Alanine Aminotransferase 20 0-40 U/L Total Protein 7.1 6.5-8.0 g/dL Albumin Level 4.4 3.5-5.0 g/dL Alkaline Phosphatase 77 39-117 U/L Lipid Panel Reviewed date:10/24/2024 07:53:19 PM Interpretation: Performing Lab:[address] [address] Notes/Report: Triglycerides 139 <150 mg/dL Desirable Triglyceride: less than 150 mg/dL Borderline High Triglyceride 150-199 mg/dL High Triglyceride: 200-499 mg/dL Very High Triglyceride: greater than or equal to 5OO mg/dL Cholesterol 105 <200 mg/dL Desirable Cholesterol: less than 200 mg/dL Borderline High Cholesterol: 200-239 mg/dL High Cholesterol: greater than 239 mg/dL LDL Cholesterol Calculated 46 <100 mg/dL Desirable LDL: less than 100 mg/dL Near Optimal/Above Optimal LDL: 110-129 mg/dL Borderline High LDL: 130-159 mg/dL High LDL: 160-189 mg/dL Very High LDL: greater than or equal to 190 mg/dL HDL Cholesterol 32 >40 mg/dL Desirable HDL: greater than 40 mg/dL Note: This HDL assay may give artificially low results in patients with liver disease. Prostate Specific Antigen Reviewed date:10/24/2024 07:53:19 PM Interpretation: Performing Lab:[address] [address] Notes/Report: Prostate Specific Antigen 12.34 <0.05-4.0 ng/mL PSA methodology: Griffith Alinity i Chemiluminescent Microparticle Immunoassay (CMIA) Hemoglobin A1c Reviewed date:10/24/2024 07:53:19 PM Interpretation: Performing Lab:[facility], [address], [place] [address] Notes/Report: Hemoglobin A1c % 5.6 <6.0 % Hemoglobin A1C Reference Range Adults: 4.8 - 6.0 % Non diabetic: < 6.0 % Goal: < 7.0 % Additional Action Suggested: > 8.0 % Note: Hemoglobin A1c results are invalid for patients with abnormal amounts of HbF. Blood transfusions may impact the HbA1c concentration in the patient sample. Estimated Average Glucose 114 eAG = Estimated average glucose which is %A1C expressed as average glucose, using the formula of the K4F-Wbigtxm Average Glucose study (ADAG), Diabetes Care, Vol.31,#8, Dec. 2007 Reason For Referral No Information Medications Medication SIG (Take, Route, Frequency, Duration) Notes Start Date End Date Status Pantoprazole Sodium 40 MG 1 tablet Orall y Once a day Active Gabapentin 100 MG Orally Ac tive Metoprolol Succinate 50 MG 1 tablet Oral ly Once a day Active Aspirin 325 MG 1 tablet Orally Once a day Active OneTouch Ultra - as directed In Vitro use 1 strip to check blood sugar on Friday /Friday/ Friday09/09/2022 Active metFORMIN HCl 500 MG TAKE 1 TABLET BY [facility] ONCE DAILY WITH A MEAL Active Donepezil HCl 10 MG 1 tablet at bedtime Orally Once a day Active Furosemide 20 MG 1 tablet Orally Once a day Active OneTouch Delica Lancets Fine 30G USE DIRECTED FOR TESTING BLOOD SUGARS FASTING ON MONDAYS, WEDNESDAYS, AND FRIDAYS Active Accu-Chek Jeanette Plus w/Device as directed In Vitro Check blood glucose on Friday, Friday, Friday01/07/2020 Active Lisinopril-hydroCHLOROthiaz jae 10-12.5 MG 1 tablet Orally Once a day Active Atorvastatin Calcium 20 MG 1 tablet Oral Once a day Active Immunizations Vaccine Route [...] Problem Status W/U Status Risk Notes Problem 70436553 Hyperlipidemia (E78.5) Active confirmed His lipids are currently stable and no change in his regimen was necessary. I recommended weight loss and a healthy Mediterranean diet. Problem 998769710 Obesity (E66.9) Active confirmed He has lost 4 pounds and remains obese. We discussed weight reduction strategies. We discussed diet and nutrition today. He made a plan to lose weight at a rate of one half of a pound per week. Problem Type II diabetes mellitus without complication (170345222) Diabetes (E11.9) Active confirmed He has been compliant with medications. His hemoglobin A1c is 5.4. He is up-to-date with ophthalmology. No change in his regimen was made. Problem 66119191 Coronary artery disease (I25.10) Active confirmed He has had no exertional angina since his last visit. He is able to conduct all of the activities of daily life without chest pain. Problem 65658408 Essential hypertension (I10) Active confirmed His blood pressure is Controlled.. No change in his regimen was needed. I strongly recommend aggressive sodium restriction and ongoing weight loss. Problem 52775397 Bilateral cataracts (H26.9) Active confirmed Problem 55204468 Acute pain of left hip (M25.552) Active confirmed He describes a pain that is elicited by pressure on the side of his hip but not with walking. He will continue the prednisone come to the office as soon as possible. He will see orthopedics for an injection. Problem 086923675 Elevated PSA (R97.20) Active confirmed He had to PSA determinations in 2022. They were 5.95 and 5.85. His PSA was 6.63. It is now 12.34. I have referred him back to his urologist for further diagnostic considerations. He is asymptomatic. Problem 795750229 Type 2 diabetes mellitus without complication, without long-term current use of insulin (E11.9) Active confirmed His fasting glucose levels have been well controlled. He is compliant with his medications. He sees his aluminizer regularly. Problem Benign prostatic hypertrophy without outflow obstruction (519087683) Benign prostatic hyperplasia, unspecified whether lower urinary tract symptoms present (N40.0) Active confirmed He rises from sleep once a night to urinate. We discussed lifestyle modifications he could make to reduce nocturia. Problem 3890383 Multiple rib fractures involving four or more ribs (S22.49XA) Active confirmed The area has healed and he is breathing comfortably. He has a long vertical scar over his right chest wall but it is not painful when he coughs and sneezes. Problem 16195253 Mild dementia with agitation, unspecified dementia type (F03.A11) Active confirmed He has become increasingly for doubtful times and places. He has shown some agitation home with anger, throwing things and using language. After discussing this with him and his we have begun him on donepezil. Vital Signs Heart Rate 89 /min 10/26/2024 Temperature 97.4 degrees Fahrenheit 10/26/2024 Blood pressure diastolic 62 mm Hg 10/26/2024 Height 66 in 10/26/2024 Blood pressure systolic 125 mm Hg 10/26/2024 Weight 192 lbs 10/26/2024 BMI 30.99 kg/m2 10/26/2024 Encounters Encounter Location Date Provider Diagnosis Ehsan Perez III, MD [address] [place] [address] [place] [address] 01/27/2024 Ehsan Perez Obesity E66.9 ; Hyperlipidemia E78.5 ; Diabetes E11.9 ; Benign prostatic hyperplasia, unspecified whether lower urinary tract symptoms present N40.0 ; Coronary artery disease I25.10 ; Elevated PSA R97.20 and Mild dementia with agitation, unspecified dementia type F03.A11 Ehsan Perez III, MD [address] [place] [address] [place] [address] 04/27/2024 Ehsan Perez Obesity E66.9 ; Kaela nary artery disease I25.10 ; Diabetes E11.9 ; Hyperlipidemia E78.5 ; Essential hypertension I10 ; Benign prostatic hyperplasia, unspecified whether lower urinary tract symptoms present N40.0 and Multiple rib fractures involving four or more ribs S22.49XA Ehsan Perez III, MD [address] [place] [address] [place] [address] 07/26/2024 Ehsan Perez Obesity E66.9 ; Diab etes E11.9 ; Hyperlipidemia E78.5 ; Essential hypertension I10 ; Benign prostatic hyperplasia, unspecified whether lower urinary tract symptoms present N40.0 ; Multiple rib fractures involving four or more ribs S22.49XA and Mild dementia with agitation, unspecified dementia type F03.A11 Ehsan Perez III, MD [address] [place] [address] [place] [address] 10/15/2024 Ehsan Perez Obesity E66.9 ; Acut [...] symptoms present N40.0 Ehsan Perez III, MD [address] [place] [address] [place] [address] 10/26/2024 Ehsan Perez Obesity E66.9 ; Kaela nary artery disease I25.10 ; Hyperlipidemia E78.5 ; Type 2 diabetes mellitus without complication, without long-term current use of insulin E11.9 ; Benign prostatic hyperplasia, unspecified whether lower urinary tract symptoms present N40.0 and Elevated PSA R97.20 Ehsan Perez III, MD [address] [place] [address] [place] [address] 02/02/2024 Ehsan Perez Coronary artery dise ase I25.10 ; Obesity E66.9 ; Essential hypertension I10 ; Diabetes E11.9 ; Benign prostatic hyperplasia, unspecified whether lower urinary tract symptoms present N40.0 and Elevated PSA R97.20 Ehsan Perez III, MD [address] [place] [address] [place] [address] 10/13/2024 Ehsan Perez III, MD [address] [place] [address] [place] [address] 10/14/2024 Ehsan Perez III, MD [address] [place] [address] [place] [address] 10/19/2024 Ehsan Perez Assessments Encounter Date Diagnosis (ICD Code) Assessment Notes Treat ment Notes Treatment Clinical Notes 01/27/2024 Hyperlipidemia (ICD-10 - E78.5) His lipid [...] change in his regimen was made. 10/15/2024 Obesity (ICD-10 - E66.9) He has [...] He will see orthopedics for an injection. 10/26/2024 Obesity (ICD-10 - E66.9) He has [...] of daily life without chest pain. 01/27/2024 Diabetes (ICD-10 - E11.9) His hemoglobin [...] change in his regimen was necessary. 10/15/2024 Coronary artery disease (ICD-10 - I25.10) He has had no exertional angina since his last visit. He is able to conduct all of the activities of daily life without chest pain. 10/26/2024 Hyperlipidemia (ICD-10 - E78.5) His lipids are currently stable and no change in his regimen was necessary. I recommended weight loss and a healthy Mediterranean diet. 02/02/2024 Coronary artery disease (ICD-10 - I25.10) 01/27/2024 Benign prostatic hyperplasia, unspecified whether lower [...] sodium restriction and ongoing weight loss. 10/15/2024 Hyperlipidemia (ICD-10 - E78.5) The current fasting lipid profile shows good control of his cholesterol. No change in his regimen was necessary. 10/26/2024 Type 2 diabetes mellitus without complication, without long-term current use of insulin (ICD-10 - E11.9) His fasting glucose levels have been well controlled. He is compliant with his medications. He sees his aluminizer regularly. 02/02/2024 Obesity (ICD-10 - E66.9) 01/27/2024 Coronary artery disease (ICD-10 - I25.10) [...] modifications he could make to reduce nocturia. 10/15/2024 Essential hypertension (ICD-10 - I10) His blood pressure is Controlled.. No change in his regimen was needed. I strongly recommend aggressive sodium restriction and ongoing weight loss. 10/26/2024 Benign prostatic hyperplasia, unspecified whether lower [...] not painful when he coughs and sneezes. 10/15/2024 Type 2 diabetes mellitus without complication, without long-term current use of insulin (ICD-10 - E11.9) He is compliant with his medications. His hemoglobin A1c is 5.5. No change in his regimen was made. 10/26/2024 Elevated PSA (ICD-10 - R97.20) He had to PSA determinations in 2022. They were 5.95 and 5.85. His PSA was 6.63. It is now 12.34. I have referred him back to his urologist for further diagnostic considerations. He is asymptomatic. 02/02/2024 Diabetes (ICD-10 - E11.9) 01/27/2024 Mild [...] we have begun him on donepezil. 10/15/2024 Mild dementia with agitation, unspecified dementia type (ICD-10 - F03.A11) He has become increasingly for doubtful times and places. He has shown some agitation home with anger, throwing things and using language. After discussing this with him and his we have begun him on donepezil. 02/02/2024 Benign prostatic hyperplasia, unspecified whether lower urinary tract symptoms present (ICD-10 - N40.0) 10/15/2024 Elevated PSA (ICD-10 - R97.20) He had to PSA determinations in 2022. They were 5.95 and 5.85. His PSA currently is 6.63. His prostate exam is unremarkable. I offered to refer him for urologic examination but he declined saying he did not wish to have a biopsy at this time. He is amenable to active surveillance. 02/02/2024 Elevated PSA (ICD-10 - R97.20) 10/15/2024 Benign prostatic hyperplasia, unspecified whether lower urinary tract symptoms present (ICD-10 - N40.0) He rises from sleep once a night to urinate. We discussed lifestyle modifications he could make to reduce nocturia. Plan Of Treatment Pending Test Test Name Order Date PROFILE, FASTING (COMPREHENSIVE METABOLI C) 01/27/2024 PROFILE, FASTING (COMPREHENSIVE METABOLI C) 02/16/2021 PROFILE, FASTING (COMPREHENSIVE METABOLI C) 04/24/2023 PROFILE, FASTING (COMPREHENSIVE METABOLI C) 01/04/2019 PROFILE, FASTING (COMPREHENSIVE METABOLI C) 10/17/2020 PROFILE, FASTING (COMPREHENSIVE METABOLI C) 08/21/2017 PROFILE, FASTING (COMPREHENSIVE METABOLI C) 01/22/2023 PROFILE, FASTING (COMPREHENSIVE METABOLI C) 06/20/2020 PROFILE, FASTING (COMPREHENSIVE METABOLI C) 09/04/2018 PROFILE, FASTING (COMPREHENSIVE METABOLI C) 05/06/2017 PROFILE, FASTING (COMPREHENSIVE METABOLI C) 10/29/2022 PROFILE, FASTING (COMPREHENSIVE METABOLI C) 02/02/2024 PROFILE, FASTING (COMPREHENSIVE METABOLI C) 07/30/2022 PROFILE, FASTING (COMPREHENSIVE METABOLI C) 04/22/2022 PROFILE, FASTING (COMPREHENSIVE METABOLI C) 06/05/2018 PROFILE, FASTING (COMPREHENSIVE METABOLI C) 03/20/2020 PROFILE, FASTING (COMPREHENSIVE METABOLI C) 02/20/2018 PROFILE, FASTING (COMPREHENSIVE METABOLI C) 10/26/2024 PROFILE, FASTING (COMPREHENSIVE METABOLI C) 01/21/2022 PROFILE, FASTING (COMPREHENSIVE METABOLI C) 07/26/2024 PROFILE, FASTING (COMPREHENSIVE METABOLI C) 04/27/2024 PROFILE, FASTING (COMPREHENSIVE METABOLI C) 12/09/2019 PROFILE, FASTING (COMPREHENSIVE METABOLI C) 08/05/2019 PROFILE, FASTING (COMPREHENSIVE METABOLI C) 09/17/2021 PROFILE, FASTING (COMPREHENSIVE METABOLI C) 10/24/2023 PROFILE, FASTING (COMPREHENSIVE METABOLI C) 06/18/2021 PROFILE, FASTING (COMPREHENSIVE METABOLI C) 07/24/2023 PROFILE, FASTING (COMPREHENSIVE METABOLI C) 05/06/2019 PROFILE, RANDOM (COMPREHENSIVE METABOLIC ) 11/20/2017 HEMOGLOBIN A1C (GLYCOHEMOGLOBIN) 020 HEMOGLOBIN A1C (GLYCOHEMOGLOBIN) 022 HEMOGLOBIN A1C (GLYCOHEMOGLOBIN) 019 HEMOGLOBIN A1C (GLYCOHEMOGLOBIN) 021 HEMOGLOBIN A1C (GLYCOHEMOGLOBIN) 018 HEMOGLOBIN A1C (GLYCOHEMOGLOBIN) 019 HEMOGLOBIN A1C (GLYCOHEMOGLOBIN) 021 HEMOGLOBIN A1C (GLYCOHEMOGLOBIN) 018 HEMOGLOBIN A1C (GLYCOHEMOGLOBIN) 023 HEMOGLOBIN A1C (GLYCOHEMOGLOBIN) 021 HEMOGLOBIN A1C (GLYCOHEMOGLOBIN) 019 HEMOGLOBIN A1C (GLYCOHEMOGLOBIN) 017 HEMOGLOBIN A1C (GLYCOHEMOGLOBIN) 023 HEMOGLOBIN A1C (GLYCOHEMOGLOBIN) 019 HEMOGLOBIN A1C (GLYCOHEMOGLOBIN) 018 LIPID PANEL 08/05/2019 LIPID PANEL 09/17/2021 LIPID PANEL 12/09/2019 LIPID PANEL 05/06/2019 LIPID PANEL 01/04/2019 LIPID PANEL 10/17/2020 LIPID PANEL 08/21/2017 LIPID PANEL 01/22/2023 LIPID PANEL 06/20/2020 LIPID PANEL 10/29/2022 LIPID PANEL 02/02/2024 LIPID PANEL 09/04/2018 LIPID PANEL 05/06/2017 LIPID PANEL 03/20/2020 LIPID PANEL 07/30/2022 LIPID PANEL 01/21/2022 LIPID PANEL 06/05/2018 LIPID PANEL 02/20/2018 PSA, TOTAL 01/21/2022 PSA, TOTAL 10/24/2023 PSA, TOTAL 08/05/2019 PSA, TOTAL 09/17/2021 PSA, TOTAL 06/18/2021 PSA, TOTAL 05/06/2019 PSA, TOTAL 01/22/2023 PSA, TOTAL 10/29/2022 PSA, TOTAL 07/26/2024 PSA, TOTAL 07/30/2022 PSA, TOTAL+FREE 01/27/2024 MICROALBUMIN, RANDOM 02/20/2018 MICROALBUMIN, RANDOM 08/05/2019 MICROALBUMIN, RANDOM 01/04/2019 MICROALBUMIN, RANDOM 10/17/2020 MICROALBUMIN, RANDOM 08/21/2017 MICROALBUMIN, RANDOM 06/20/2020 CBC w DIFF 06/05/2018 CBC w DIFF 07/30/2022 CBC w DIFF 07/24/2023 CBC w DIFF 01/21/2022 CBC w DIFF 02/20/2018 CBC w DIFF 12/09/2019 CBC w DIFF 02/16/2021 CBC w DIFF 11/20/2017 CBC w DIFF 09/17/2021 CBC w DIFF 06/18/2021 CBC w DIFF 04/22/2022 CBC w DIFF 08/05/2019 CBC w DIFF 05/06/2019 CBC w DIFF 02/02/2024 CBC w DIFF 01/04/2019 CBC w DIFF 10/26/2024 CBC w DIFF 10/17/2020 CBC w DIFF 08/21/2017 CBC w DIFF 01/22/2023 CBC w DIFF 09/04/2018 CBC w DIFF 06/20/2020 CBC w DIFF 05/06/2017 CBC w DIFF 10/29/2022 CBC w DIFF 03/20/2020 CBC WITH AUTO DIFF 07/26/2024 CBC WITH AUTO DIFF 04/24/2023 CBC WITH AUTO DIFF 10/24/2023 CBC WITH AUTO DIFF 01/27/2024 CBC WITH AUTO DIFF 04/27/2024 Lipid Panel 10/26/2024 Lipid Panel 04/27/2024 Lipid Panel 07/26/2024 Lipid Panel 07/24/2023 Lipid Panel 04/24/2023 Lipid Panel 10/24/2023 Lipid Panel 01/27/2024 Lipid Panel 02/16/2021 Lipid Panel 06/18/2021 Lipid Panel 04/22/2022 PSA Free and Total 02/02/2024 Microalbumin, Random 04/27/2024 Microalbumin, Random 07/24/2023 Microalbumin, Random 04/24/2023 Microalbumin, Random 10/24/2023 Microalbumin, Random 02/16/2021 Microalbumin, Random 04/22/2022 Hemoglobin A1c 10/26/2024 Hemoglobin A1c 04/22/2022 Hemoglobin A1c 07/26/2024 Hemoglobin A1c 04/27/2024 Hemoglobin A1c 07/24/2023 Hemoglobin A1c 04/24/2023 Hemoglobin A1c 10/24/2023 Next Appt Details Provider Name:Ehsan Perez, 01/27/2025 10:00:00 AM, [address] [place] [address] MOISES GENAO, FAYE WHELAN, [id number], Insurance Providers Payer Name Payer Address Payer Phone Subscriber Number Group Number Insured Name Patient Relationship to Insured Coverage Start Date Coverage End Date MEDICARE NGS [address] [place] [address] [id number] Ramakrishna Locke Self - patient is the insured [facility] CLAIM DIV [address] [place] [address] [id number] Ramakrishna Locke Self - patient is the insured Medical (General) History Medical History History ICD Code Coronary artery disease I25.10 Bilateral cataracts H26.9 Obesity E66.9 Hyperlipidemia E78.5 Essential hypertension I10 Diabetes E11.9 Hernia K46.9 multiple traumatic right rib fractures. 2016, surgically corrected Surgical History Surgery Date(Month/Year) No history surgical repair right-sided flail chest 01/2017 rib fractures with surgical repair three-vessel coronary artery bypass delvis ting inguinal herniorrhaphy appendectomy Hospitalization History Reason Date(Month/Year) No history
[2025-01-20 09:49] LABS: Hematocrit 46.2 % (42.0-52.0); Hemoglobin 15.5 g/dl (14.0-18.0); Imm Gran Abs Auto 0.04 X10*3/uL (0.00-0.03); Imm Gran Pct Auto 0.4 % (0.0-0.4); Lymphocytes Absolute Auto 1.9 X10*3/uL (1.2-4.9); Mean Corpuscular HGB Conc 33.5 g/dl (31.0-36.0); Mean Corpuscular Hemoglobin 30.9 pg (27.0-33.0); Mean Corpuscular Volume 92.2 fL (80.0-98.0); NRBC Abs Auto 0.000 X10*3/uL (0.0-0.012); NRBC Pct Auto 0.0 /100WBC (0.0-0.2); Platelet Count 197 X10*3/uL (160-400); Red Blood Count 5.01 X10*6/uL (4.60-5.80); White Blood Count 9.1 X10*3/uL (4.8-10.8)
[2025-01-20 09:58] LABS: Hemoglobin A1C 146.7014 umol/L; Total Hemoglobin (HGBA1C) 4018.1176 umol/L
[2025-01-20 10:36] LABS: Alanine Aminotransferase 20 U/L (0-40); Albumin Level 4.4 g/dL (3.5-5.0); Alkaline Phosphatase 83 U/L (39-117); Anion Gap 15 (12-20); Aspartate Amino Transferase 22 U/L (5-37); Blood Urea Nitrogen 14 mg/dL (9-16); Calcium 9.6 mg/dL (8.4-10.2); Carbon Dioxide 25 mmol/L (22-29); Chloride 103 mmol/L (96-108); Cholesterol 112 mg/dL (<200); Estimated Glomerular Filt Rate > 60; HDL Cholesterol 30 mg/dL (>40); Potassium 4.6 mmol/L (3.3-5.1); Sodium 138 mmol/L (135-145); Total Protein 7.0 g/dL (6.5-8.0); Triglycerides 133 mg/dL (<150)
== END 2025-01-20 08:34 | disposition home or self-care (01) ==
LOC: HO.LAB 08:33
PROVIDERS: PCP Internal Medicine Medical Oncology; Visit Provider Internal Medicine Medical Oncology
DX: E11.9 Type 2 diabetes mellitus without complications (principal); E66.9 Obesity, unspecified; E78.5 Hyperlipidemia, unspecified
CPT/HCPCS: 36415; 80053; 80061; 83036; 85025

== ENCOUNTER 2025-02-01 09:23 | Outpatient (REF) | payer MEDICARE, SELFPAY ==
--- OUTSIDE RECORDS SUMMARY | 2024-10-15 07:15 | XMS_ITS ---
Author Organization Ehsan Perez III, MD Address [address] [place] [address] [place] [address] Care Team Providers Care Lone Lead Lineman Name Role Phone Ehsan Perez Primary Care Provider Allergies Allergen (clinical drug ingredient) Drug/Non Drug Allergy documented on EMR Reaction Allergy Type Onset Date Status No Known Drug Allergy Unknown Drug Allergy Active REASON FOR VISIT Lateral left hip pain all, Coronary artery disease, Obesity, Hypertension, Diabetes, Benign prostatic hypertrophy, Mild dementia, Abnormal PSA Medications Medication SIG (Take, Route, Frequency, Duration) Notes Start Date End Date Status OneTouch Ultra - as directed In Vitro use 1 strip to check blood sugar on Friday /Friday/ Friday09/09/2022 Active OneTouch Delzarina Lancets Fine 30G USE DIRECTED FOR TESTING BLOOD SUGARS FASTING ON MONDAYS, WEDNESDAYS, AND FRIDAYS Active Donepezil HCl 10 MG 1 tablet at bedtime Orally Once a day Active Furosemide 20 MG 1 tablet Orally Once a day Active Gabapentin 100 MG Orally Ac tive Lisinopril-hydroCHLOROthiaz jae 10-12.5 MG 1 tablet Orally Once a day Active Metoprolol Succinate 50 MG 1 tablet Oral ly Once a day Active Atorvastatin Calcium 20 MG 1 tablet Oral Once a day Active Pantoprazole Sodium 40 MG 1 tablet Orall y Once a day Active Aspirin 325 MG 1 tablet Orally Once a day Active metFORMIN HCl 500 MG TAKE 1 TABLET BY [facility] ONCE DAILY WITH A MEAL Active Accu-Chek [...] nonsmoker Additional Findings: Tobacco Non-User Aggressive non-smoker Problems Problem Type SNOMED Code ICD Code Onset Dates Problem Status W/U Status Risk Notes Problem [id number] Acute pain of left hip (M25.552) Active confirmed He describes a pain that is elicited by pressure on the side of his hip but not with walking. He will continue the prednisone come to the office as soon as possible. He will see orthopedics for an injection. Vital Signs Height 66 in 10/15/2024 Weight 196 lbs 10/15/2024 BMI 31.63 kg/m2 10/15/2024 Encounters Encounter Location Date Provider Diagnosis Ehsan Perez III, MD [address] [place] [address] [place], [place] [address] 10/15/2024 Ehsan Perez Obesity E66.9 ; Acut e pain of left hip M25.552 ; Coronary artery disease I25.10 ; Hyperlipidemia E78.5 ; Essential hypertension I10 ; Type 2 diabetes mellitus without complication, without long-term current use of insulin E11.9 ; Mild dementia with agitation, unspecified dementia type F03.A11 ; Elevated PSA R97.20 and Benign prostatic hyperplasia, unspecified whether lower urinary tract symptoms present N40.0 Assessments Encounter Date Diagnosis (ICD Code) Assessment Notes Treat ment Notes Treatment Clinical Notes 10/15/2024 Obesity (ICD-10 - E66.9) He has lost 3 pounds and remains obese. We discussed weight reduction strategies. We discussed diet and nutrition today. He made a plan to lose weight at a rate of one half of a pound per week. 10/15/2024 Acute pain of left hip (ICD-10 - M25.552) He describes a pain that is elicited by pressure on the side of his hip but not with walking. He will continue the prednisone come to the office as soon as possible. He will see orthopedics for an injection. 10/15/2024 Coronary artery disease (ICD-10 - I25.10) He has had no exertional angina since his last visit. He is able to conduct all of the activities of daily life without chest pain. 10/15/2024 Hyperlipidemia (ICD-10 - E78.5) The current fasting lipid profile shows good control of his cholesterol. No change in his regimen was necessary. 10/15/2024 Essential hypertension (ICD-10 - I10) His blood pressure is Controlled.. No change in his regimen was needed. I strongly recommend aggressive sodium restriction and ongoing weight loss. 10/15/2024 Type 2 diabetes mellitus without complication, without long-term current use of insulin (ICD-10 - E11.9) He is compliant with his medications. His hemoglobin A1c is 5.5. No change in his regimen was made. 10/15/2024 Mild dementia with agitation, unspecified dementia type (ICD-10 - F03.A11) He has become increasingly for doubtful times and places. He has shown some agitation home with anger, throwing things and using language. After discussing this with him and his we have begun him on donepezil. 10/15/2024 Elevated PSA (ICD-10 - R97.20) He had to PSA determinations in 2022. They were 5.95 and 5.85. His PSA currently is 6.63. His prostate exam is unremarkable. I offered to refer him for urologic examination but he declined saying he did not wish to have a biopsy at this time. He is amenable to active surveillance. 10/15/2024 Benign prostatic hyperplasia, unspecified whether lower urinary tract symptoms present (ICD-10 - N40.0) He rises from sleep once a night to urinate. We discussed lifestyle modifications he could make to reduce nocturia. Plan Of Treatment Medication Medication Name Sig Start Date Stop Date Notes OneTouch Ultra - as directed In Vitro use 1 strip to check blood sugar on Friday /Friday/ Friday09/09/2022 OneTouch Delica Lancets Fine 30G USE DIRECTED FOR TESTING BLOOD SUGARS FASTING ON MONDAYS, WEDNESDAYS, AND FRIDAYS Donepezil HCl 10 MG 1 tablet at bedtime Orally Once a day Furosemide 20 MG 1 tablet Orally Once a day Gabapentin 100 MG Orally Lisinopril-hydroCHLOROthiazi de 10-12.5 MG 1 tablet Orally Once a day Metoprolol Succinate 50 MG 1 tablet Orally Once a day Atorvastatin Calcium 20 MG 1 tablet Oral Once a day Pantoprazole Sodium 40 MG 1 tablet Orally Once a day Aspirin 325 MG 1 tablet Orally Once a day metFORMIN HCl 500 MG TAKE 1 TABLET BY [facility] ONCE DAILY WITH A MEAL Accu-Chek Jeanette Plus w/Device as directe d In Vitro Check blood glucose on Friday, Friday, Friday01/07/2020 Next Appt Details Follow Up: As Scheduled, Verena son: OV Provider Name:Ehsan Perez, 04/28/2025 10:00:00 AM, [address] [place] [address] [place], [place], [address], Provider Name:Ehsan Perez, 01/31/2026 10:00:00 AM, [address] [place] [address] MO[place] GENAO, F[place], [address], Progress Notes * Fred LOCKEOB:1940 ( 84 yo M)Acc No.[id number]:10/15/2024 Patient: Reema CABELLOy Provider: Kelsie Perez MD :1940 A ge:84 Y S ex:Male Date:10/15/2024 Address:[address] [place] [address] [place]zon [id number] Subjective: * Chief Complaints: * L ateral left hip pain allCoronary artery diseaseObesityHypertensionDiabetesBenign prostatic hypertrophyMild dementiaAbnormal PSA * HPI: * : He recently developed severe pain in his left hip. He went to the emergency room at [facility]. X-rays were obtained that showed mild arthritis but no fracture or dislocation. He was given prednisone and instructions to take acetaminophen and referred here.His description of the pain is consistent with trochanteric bursitis. He was referred to orthopedics. He will continue on the prednisone. On office visit was arranged.He was instructed to put ice on the area and avoid unnecessary exertion. Telehealth L ocation of provider rendering services: { ...} [address] [facility] [address] L ocation of patient: kathleen wade listed in demographics for today's visit P atient identification confirmed using: AISHA López ame elehealth method: T elephone only. Patient not visible to care provider. C onsent: P atient verbally consented to treatment, Patient verbally consented to billing insurance company, Patient informed of any privacy concerns related to method of visit T otal time spent with patient (mins) 1 5 * ROS: G eneral/Constitutional: pain L ateral left hip of acute onset without trauma. C hills d enies. F atigue a dmits. F ever d enies. E NT: Decreased hearing d enies. R espiratory: Cough d enies. C ardiovascular: Chest pain with exertion d enies. D yspnea on exertion?denies. S hortness of breath w ith exertion. G astrointestinal: Constipation d enies. D ecreased appetite d enies.?Diarrhea d enies. H eartburn d enies. N ausea d enies. R ectal bleeding?denies. V omiting d enies. H ematology: bruising d enies. p etechiae d enies. S wollen glands n one have been noted. G enitourinary: Frequent urination o nce a night. M usculoskeletal: Muscle aches d enies. P ainful joints L eft hip.?Sciatica d enies. W eakness d enies. S kin: Itching d enies. R az d enies. S kin lesion(s)?denies. N eurologic: Difficulty speaking d enies. D izziness d enies.?Headache d enies. L ow back pain d enies. P sychiatric: Depressed mood d enies. * Medical History: * Surgical History: a ppendectomy inguinal herniorrhaphy three-vessel coronary artery bypass grafting rib fractures with surgical repair surgical repair right-sided flail chest 01/2017No history * Hospitalization/Major Diagno stic Procedure: N o history * Family History: F ather: 40 yrs, myocardial infarction. M other: 85 yrs, hypertension, diagnosed with HTN. 3 brother(s) . . A brother has had 3 strokes but is still living. Two other brothers are alive and well. He has no children. * Social History: T obacco Use: T obacco Use/Smoking P atlynda is a n onsmoker A dditional Findings: Tobacco Non-User A ggressive non-smoker John pinzon was born in [place]. He has been to [place] for 25 years. He has no children. 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 * Medications: T akingmetFORMIN HCl 500 MG Tablet TAKE 1 TABLET [...] tablet Orally Once a day Taking [facility] Lancets Fine 30G Miscellaneous USE DIRECTED FOR TESTING BLOOD SUGARS FASTING ON MONDAYS, WEDNESDAYS, AND FRIDAYS Taking OneTouch Ultra - Strip as directed In Vitro use 1 strip to check blood sugar on Friday /Friday/ Friday Taking Donepezil HCl 10 MG Tablet 1 tablet at bedtime Orally Once a day Medication List reviewed and reconciled with the patient * Allergies: N o Known Drug Allergyno[Allergies Verified] Objective: * Vitals: H t: 66, Wt:196, BMI:31.63, Wt-k.9. * P ast Orders: Lab:Lipid Panel * Collection Date 07/21/2024 04/21/2024 [...] 59 (Ref Range: <100 mg/dL) HDL Cholesterol 31 L (Ref Range: >40 mg/dL) 33 L (Ref Range: >40 mg/dL) 33 L (Ref Range: >40 mg/dL) * Lab:Microalbumin, Random [...] 6.5 (Ref Range: <30 ug/mg cr) * Lab:Hemoglobin A1c * Collection Date 07/21/2024 01/20/2024 10/17/2023 Collection Time 08:41 AM 08:41 AM 08:32 AM Order Date 07/21/2024 01/20/2024 10/17/2023 Hemoglobin A1c % 5.4 (Ref Range: <6.0 %) 5.5 (Ref Range: <6.0 %) 5.8 (Ref Range: <6.0 %) Estimated Average Glucose 108 (Ref Range: mg/dL) 111 (Ref Range: mg/dL) 120 (Ref Range: mg/dL) * Lab:Complete Blood Count Aut o [...] (Ref Range: 160-400 X10*3/uL) Mean Platelet Volume 9.0 L (Ref Range: 9.4-12.4 fL) 9.2 L (Ref Range: 9.4-12.4 fL) 9.0 L (Ref Range: 9.4-12.4 fL) Neutrophils Percent Auto [...] X10*3/uL) 0.000 (Ref Range: 0.0-0.012 X10*3/uL) * Lab:[facility]. Parveen l Fast * Collection Date 07/21/2024 04/21/2024 01/20/2024 Collection Time 08:41 AM 08:28 AM 08:41 AM Order Date 07/21/2024 04/21/2024 01/20/2024 Sodium 140 (Ref Range: 135-145 mmol/L) 140 (Ref Range: 135-145 mmol/L) 138 (Ref Range: 135-145 mmol/L) Bilirubin Total 1.4 H (Ref Range: 0.0-1.0 mg/dL) 1.4 H (Ref Range: 0.0-1.0 mg/dL) 1.4 H (Ref Range: 0.0-1.0 mg/dL) Aspartate Amino Transferase [...] 105 (Ref Range: 96-108 mmol/L) Carbon Dioxide 20 L (Ref Range: 22-29 mmol/L) 21 L (Ref Range: 22-29 mmol/L) 23 (Ref Range: 22-29 mmol/L) Anion Gap 19 (Ref Range: 12-20) 16 (Ref Range: 12-20) 14 (Ref Range: 12-20) Blood Urea Nitrogen 17 H (Ref Range: 9-16 mg/dL) 21 H (Ref Range: 9-16 mg/dL) 15 (Ref Range: 9-16 mg/dL) Creatinine 1.00 (Ref Range: 0.5-1.4 mg/dL) 1.08 (Ref Range: 0.5-1.4 mg/dL) 1.08 (Ref Range: 0.5-1.4 mg/dL) Estimated Glomerular Filt Rate > 60 > 60 > 60 Glucose Fasting 120 H (Ref Range: 60-99 mg/dL) 154 H (Ref Range: 60-99 mg/dL) 126 H (Ref Range: 60-99 mg/dL) Calcium 9.7 (Ref Range: 8.4-10.2 mg/dL) 9.6 (Ref Range: 8.4-10.2 mg/dL) 9.6 (Ref Range: 8.4-10.2 mg/dL) ???Imaging:XR hip LT w PEL1V (Order Date - 10/13/2024) (Performed Date - 10/13/2024) Assessment: * Assessment: 1. A cute pain of left hip - M25.552 (Primary) N otes :He describes a pain that is elicited by pressure on the side of his hip but not with walking. He will continue the prednisone come to the office as soon as possible. He will see orthopedics for an injection. 2 . O besity - E66.9 N otes :He has lost 3 pounds and remains obese. We discussed weight reduction strategies. We discussed diet and nutrition today. He made a plan to lose weight at a rate of one half of a pound per week. 3 . C oronary artery disease - I25.10 N otes :He has had no exertional angina since his last visit. He is able to conduct all of the activities of daily life without chest pain. 4 . H yperlipidemia - E78.5 N otes :The current fasting lipid profile shows good control of his cholesterol. No change in his regimen was necessary. 5 . E ssential hypertension - I10 N otes :His blood pressure is Controlled.. No change in his regimen was needed. I strongly recommend aggressive sodium restriction and ongoing weight loss. 6 . T ype 2 diabetes mellitus without complication, without long-term current use of insulin - E11.9 N otes :He is compliant with his medications. His hemoglobin A1c is 5.5. No change in his regimen was made. 7 . M ild dementia with agitation, unspecified dementia type - F03.A11 ? N otes :He has become increasingly for doubtful times and places. He has shown some agitation home with anger, throwing things and using language. After discussing this with him and his we have begun him on donepezil. 8 . E levated PSA - R97.20 N otes :He had to PSA determinations in 2022. They were 5.95 and 5.85. His PSA currently is 6.63. His prostate exam is unremarkable. I offered to refer him for urologic examination but he declined saying he did not wish to have a biopsy at this time. He is amenable to active surveillance. 9 . B enign prostatic hyperplasia, unspecified whether lower urinary tract symptoms present - N40.0 N otes :He rises from sleep once a night to urinate. We discussed lifestyle modifications he could make to reduce nocturia. Plan: * Treatment: 2. O thers Continue metFORMIN HCl Tablet, 500 MG, TAKE 1 TABLET BY MOUTH ONCE DAILY WITH A MEAL; C ontinue Accu-Chek Jeanette Plus Kit, w/Device, as directed, In Vitro, Check blood glucose on Friday, Friday, Friday; C ontinue Lisinopril-hydroCHLOROthiazide Tablet, 10-12.5 MG, 1 tablet, Orally, Once a day; C ontinue Atorvastatin Calcium Tablet, 20 MG, 1 tablet, Oral, Once a day; C ontinue Metoprolol Succinate Tablet Extended Release 24 Hour, 50 MG, 1 tablet, Orally, Once a day; C ontinue Aspirin Tablet Delayed Release, 325 MG, 1 tablet, Orally, Once a day; C ontinue Pantoprazole Sodium Tablet Delayed Release, 40 MG, 1 tablet, Orally, Once a day; C ontinue Gabapentin Capsule, 100 MG, Orally; C ontinue Furosemide Tablet, 20 MG, 1 tablet, Orally, Once a day; C ontinue OneTouch Delica Lancets Fine Miscellaneous, 30G, USE DIRECTED FOR TESTING BLOOD SUGARS FASTING ON MONDAYS, WEDNESDAYS, AND FRIDAYS; C ontinue OneTouch Ultra Strip, -, as directed, In Vitro, use 1 strip to check blood sugar on Friday /Friday/ Friday. * Procedure Codes: 9 8012 SYNCH AUDIO-ONLY EST SF 10 * Preventive Medicine: Counseling: C are goal follow-up plan: Counseling for abnormal BMI given Y es Above Normal BMI Follow-up D ietary management education, guidance, and counseling, Dietary needs education, Exercise promotion: strength training, Exercise promotion: stretching, Feeding regime, Giving encouragement to exercise, Lifestyle education regarding diet, Nutrition / feeding management, Nutrition therapy, Prescribed activity/exercise education, Prescribed diet education, Prescribed dietary intake, Special diet education, Weight monitoring , Intervention, Order not done: Medical or Other reason not done DM Care Plan: P atient Lifestyle Goals P atient wants to be able to manage diabetes without too much effort. T reatment Goals H bA1C < 7.0, Blood Sugars less than < 115. B arriers n o barriers. S elf-Managment Goals W ork on weight loss, with a goal of losing 1 lb per week. * Follow Up: A s Scheduled (Reason: OV) * Images: * Sign off status: Completed true * Provider: Kelsie Perez MD Date: 10/15/2024 Generated for Jesika venegas/Marcus/eTransmitting on: 0 02/01/2025 10:50 AM EDT History and Physical Notes * HPI (History of Present Illness) Category Sub-Category Detail Notes Telehealth Location of [facility] rendering services:: {...} [address] [facility] [address] Location of patient:: address listed in demographics for today's visit Patient identification confirmed using:: Name, Telehealth method:: Telephone only. Marguerite ent not visible to care provider. Consent:: Patient verbally c onsented to treatment, Patient verbally consented to billing insurance company, Patient informed of any privacy concerns related to method of visit Total time spent with patient (mins): 15
--- OUTSIDE RECORDS SUMMARY | 2024-10-19 06:41 | XMS_ITS ---
Author Organization Ehsan Perez III, MD Address [address] [place] [address] [place] [address] Care Team Providers Care Fire Operations Forester Name Role Phone Ehsan Perez Primary Care Provider REASON FOR VISIT told patient to call Social History Sex Assigned At : Social History Observation Description Sex Assigned At Male Encounters Encounter Location Date Provider Diagnosis Ehsan Perez III, MD [address] [place] [address] [address] [place] [address] 10/19/2024 Ehsan Perez Plan Of Treatment Next Appt Details Provider Name:Ehsan Perez, 04/28/2025 10:00:00 AM, [address] [place] [address] [place], [address], Provider Name:Ehsan Perez, 01/31/2026 10:00:00 AM, [address] [place] [address] [place] GENAO, [place], [address], Progress Notes * Fred LOCKEOB:1940 ( 84 yo M)Acc No.[id number]:10/19/2024 Patient: Clary VAZQUEZRamakrishna Rojas :1940 A ge:84 Y S ex:Male Address:[address] [place] [address] [place] [address] * true * Date: Generated for Jesika venegas/Marcus/eTsonyasmitting on: 0 02/01/2025 10:49 AM EDT
--- OUTSIDE RECORDS SUMMARY | 2024-10-26 06:15 | XMS_ITS ---
Author Organization Ehsan Perez III, MD Address [address] [place] [address] [place] [address] Care Team Providers Care Asphalt Layer Name Role Phone Ehsan Perez Primary Care Provider [phone] Allergies Allergen (clinical drug ingredient) Drug/Non Drug Allergy documented on EMR Reaction Allergy Type Onset Date Status No Known Drug Allergy Unknown Drug Allergy Active REASON FOR VISIT Coronary artery disease, Obesity, Diabetes, Hyperlipidemia, Hypertension, Benign prostatic hypertrophy, Acute pain left hip Medications Medication SIG (Take, Route, Frequency, Duration) Notes Start Date End Date Status Gabapentin 100 MG Orally Ac tive OneTouch Ultra - as directed In Vitro use 1 strip to check blood sugar on Friday /Friday/ Friday09/09/2022 Active Donepezil HCl 10 MG 1 tablet at bedtime Orally Once a day Active Furosemide 20 MG 1 tablet Orally Once a day Active Michelle Gama Lancets Fine 30G USE DIRECTED FOR TESTING BLOOD SUGARS FASTING ON MONDAYS, WEDNESDAYS, AND FRIDAYS Active Pantoprazole Sodium 40 MG 1 tablet Orall y Once a day Active Metoprolol Succinate 50 MG 1 tablet Oral ly Once a day Active Aspirin 325 MG 1 tablet Orally Once a day Active Lisinopril-hydroCHLOROthiaz jae 10-12.5 MG 1 tablet Orally Once a day Active Atorvastatin Calcium 20 MG 1 tablet Oral Once a day Active metFORMIN HCl 500 MG TAKE 1 TABLET BY [facility] ONCE DAILY WITH A MEAL Active [...] Tobacco Non-User Aggressive non-smoker Vital Signs Temperature 97.4 degrees Fahrenheit 10/27/19 25 Blood pressure systolic 125 mm Hg 10/27/19 25 Blood pressure diastolic 62 mm Hg 025 Heart Rate 89 /min 10/26/2024 Height 66 in 10/26/2024 Weight 192 lbs 10/26/2024 BMI 30.99 kg/m2 10/26/2024 Encounters Encounter Location Date Provider Diagnosis Ehsan Perez III, MD [address] [place] [address] [place] [address] 10/26/2024 Ehsan Perez Obesity E66.9 ; Kaela nary artery disease I25.10 ; Hyperlipidemia E78.5 ; Type 2 diabetes mellitus without complication, without long-term current use of insulin E11.9 ; Benign prostatic hyperplasia, unspecified whether lower urinary tract symptoms present N40.0 and Elevated PSA R97.20 Assessments Encounter Date Diagnosis (ICD Code) Assessment Notes Treat ment Notes Treatment Clinical Notes 10/26/2024 Obesity (ICD-10 - E66.9) He has lost 4 pounds and remains obese. We discussed weight reduction strategies. We discussed diet and nutrition today. He made a plan to lose weight at a rate of one half of a pound per week. 10/26/2024 Coronary artery disease (ICD-10 - I25.10) He has had no exertional angina since his last visit. He is able to conduct all of the activities of daily life without chest pain. 10/26/2024 Hyperlipidemia (ICD-10 - E78.5) His lipids are currently stable and no change in his regimen was necessary. I recommended weight loss and a healthy Mediterranean diet. 10/26/2024 Type 2 diabetes mellitus without complication, without long-term current use of insulin (ICD-10 - E11.9) His fasting glucose levels have been well controlled. He is compliant with his medications. He sees his seo marketing specialist regularly. 10/26/2024 Benign prostatic hyperplasia, unspecified whether lower urinary tract symptoms present (ICD-10 - N40.0) He rises from sleep once a night to urinate. We discussed lifestyle modifications he could make to reduce nocturia. 10/26/2024 Elevated PSA (ICD-10 - R97.20) He had to PSA determinations in 2022. They were 5.95 and 5.85. His PSA was 6.63. It is now 12.34. I have referred him back to his urologist for further diagnostic considerations. He is asymptomatic. Plan Of Treatment Medication Medication Name Sig Start Date Stop Date Notes Gabapentin 100 MG Orally OneTouch Ultra - as directed In Vitro use 1 strip to check blood sugar on Friday /Friday/ Friday09/09/2022 Donepezil HCl 10 MG 1 tablet at bedtime Orally Once a day Furosemide 20 MG 1 tablet Orally Once a day OneTouch Delica Lancets Fine 30G USE DIRECTED FOR TESTING BLOOD SUGARS FASTING ON MONDAYS, WEDNESDAYS, AND FRIDAYS Pantoprazole Sodium 40 MG 1 tablet Orally Once a day Metoprolol Succinate 50 MG 1 tablet Orally Once a day Aspirin 325 MG 1 tablet Orally Once a day Lisinopril-hydroCHLOROthiazi de 10-12.5 MG 1 tablet Orally Once a day Atorvastatin Calcium 20 MG 1 tablet Oral Once a day metFORMIN HCl 500 MG TAKE 1 TABLET BY [facility] ONCE DAILY WITH A MEAL Accu-Chek Jeanette Plus w/Device as directe d In Vitro Check blood glucose on Friday, Friday, Friday01/07/2020 Pending Test Test Name Order Date PROFILE, FASTING (COMPREHENSIVE METABOLI C) 10/26/2024 CBC w DIFF 10/26/2024 Lipid Panel 10/26/2024 Hemoglobin A1c 10/26/2024 Next Appt Details Follow Up: As Scheduled, Verena son: Annual Exam Provider Name:Ehsan Perez, 04/28/2025 10:00:00 AM, [address] [facility] [address], [place], [address], Provider Name:Ehsan Perez, 01/31/2026 10:00:00 AM, [address] [place] [address] [address], [place], [address], Progress Notes * Fred LOCKEOB:1940 ( 84 yo M)Acc No.[id number]:10/26/2024 Progress Notes Patient: Ramakrishna CABELLO Provider: Kelsie Perez MD :1940 A ge:84 Y S ex:Male Date:10/26/2024 Address:[address] [place] [address] ENEIDA Clary [id number] Subjective: * Chief Complaints: * C oronary artery diseaseObesityDiabetesHyperlipidemiaHypertensionBenign prostatic hypertrophyAcute pain left hip * HPI: C OVID-19 Screening: John pinzon returns for medical management. He has seen his seo marketing specialist and is receiving an injection in his left eye every 4 weeks. He is unable to give me as a diagnosis and I do not have a report from the seo marketing specialist. He rises from sleep twice a night to urinate. We have discussed lifestyle modifications asymptomatic to reduce this. His fasting glucose has been between 93 and 138. He has been compliant with all of his medications. He is no longer drinking alcohol. His low back pain has improved substantially.Jarred has had no dyspnea on exertion or exertional chest pain. He has a pain in his left hip which on examination comes in the greater trochanter. He has been referred for injections to orthopedic clinic. Questions H ave you had any new onset fever, chills, cough, congestion, sore throat, shortness of breath, muscle aches? N o * ROS: G eneral/Constitutional: pain L eft hip. C hills d enies. F atigue a dmits. F ever d enies. E NT: Decreased hearing d enies. R espiratory: Cough d enies. C ardiovascular: Chest pain with exertion d enies. D yspnea on exertion?denies. S hortness of breath d enies. G astrointestinal: Constipation o ccasional. D ecreased appetite d enies. D iarrhea d enies. H eartburn d enies. N ausea d enies. R ectal bleeding d enies. V omiting d enies. H ematology: bruising d enies. p etechiae d enies. S wollen glands n one have been noted. G enitourinary: Frequent urination t wice a night. M usculoskeletal: Muscle aches d enies. P ainful joints d enies. S ciatica d enies. W eakness d enies. S kin: Itching d enies. R az d enies. S kin lesion(s)?denies. N eurologic: Difficulty speaking d enies. D izziness d enies.?Headache d enies. L ow back pain t hat is chronic. P sychiatric: Depressed mood d enies. * [...] T obacco Use: T obacco Use/Smoking P atient is a n onsmoker A dditional Findings: Tobacco Non-User A ggressive non-smoker John pinzon was born in [place]. He has been to [place] for 25 years. He has no children. 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 * Medications: T akingmetFORMIN HCl 500 MG [...] Verified] Objective: * Vitals: H t: 66, Wt:192, BMI:30.99, BP:125/62, HR:89, Temp:97.4, Wt-k.09. * P ast Orders: Lab:Prostate Specific Antige n * Collection Date 10/23/2024 01/20/2024 04/19/2023 Collection Time 08:29 AM 08:41 AM 08:24 AM Order Date 10/23/2024 01/20/2024 04/19/2023 Prostate Specific Antigen 12.34 H (Ref Range: <0.05-4.0 ng/mL) 6.63 H (Ref Range: <0.05-4.0 ng/mL) 5.95 H (Ref Range: <0.05-4.0 ng/mL) * Lab:Hemoglobin A1c * Collection Date 10/23/2024 07/21/2024 01/20/2024 Collection Time 08:29 AM 08:41 AM 08:41 AM Order Date 10/23/2024 07/21/2024 01/20/2024 Hemoglobin A1c % 5.6 (Ref Range: <6.0 %) 5.4 (Ref Range: <6.0 %) 5.5 (Ref Range: <6.0 %) Estimated Average Glucose 114 (Ref Range: mg/dL) 108 (Ref Range: mg/dL) 111 (Ref Range: mg/dL) * Lab:Complete Blood Count Aut o Diff * Collection Date 10/23/2024 07/21/2024 04/21/2024 Collection Time 08:29 AM 08:41 AM 08:28 AM Order Date 10/23/2024 07/21/2024 04/21/2024 White Blood Count 8.7 (Ref Range: 4.8-10.8 X10*3/uL) 7.7 (Ref Range: 4.8-10.8 X10*3/uL) 7.3 (Ref Range: 4.8-10.8 X10*3/uL) Red Blood Count 5.35 (Ref Range: 4.60-5.80 X10*6/uL) 5.32 (Ref Range: 4.60-5.80 X10*6/uL) 5.26 (Ref Range: 4.60-5.80 X10*6/uL) Hemoglobin 16.5 (Ref Range: 14.0-18.0 g/dl) 16.4 (Ref Range: 14.0-18.0 g/dl) 16.4 (Ref Range: 14.0-18.0 g/dl) Hematocrit 47.9 (Ref Range: 42.0-52.0 %) 47.9 (Ref Range: 42.0-52.0 %) 48.2 (Ref Range: 42.0-52.0 %) Mean Corpuscular Volume 89.5 (Ref Range: 80.0-98.0 fL) 90.0 (Ref Range: 80.0-98.0 fL) 91.6 (Ref Range: 80.0-98.0 fL) Mean Corpuscular Hemoglobin 30.8 (Ref Range: 27.0-33.0 pg) 30.8 (Ref Range: 27.0-33.0 pg) 31.2 (Ref Range: 27.0-33.0 pg) Mean Corpuscular HGB Conc 34.4 (Ref Range: 31.0-36.0 g/dl) 34.2 (Ref Range: 31.0-36.0 g/dl) 34.0 (Ref Range: 31.0-36.0 g/dl) Red Cell Distribution Width 14.2 (Ref Range: 11.0-16.0 %) 13.8 (Ref Range: 11.0-16.0 %) 13.7 (Ref Range: 11.0-16.0 %) Platelet Count 197 (Ref Range: 160-400 X10*3/uL) 237 (Ref Range: 160-400 X10*3/uL) 215 (Ref Range: 160-400 X10*3/uL) Mean Platelet Volume 9.1 L (Ref Range: 9.4-12.4 fL) 9.0 L (Ref Range: 9.4-12.4 fL) 9.2 L (Ref Range: 9.4-12.4 fL) Neutrophils Percent Auto 62.5 (Ref Range: 45-73 %) 57.7 (Ref Range: 45-73 %) 57.6 (Ref Range: 45-73 %) Imm Gran Pct Auto 0.2 (Ref Range: 0.0-0.4 %) 0.4 (Ref Range: 0.0-0.4 %) 0.3 (Ref Range: 0.0-0.4 %) Lymphocytes Percent Auto 25.5 (Ref Range: 20-40 %) 28.6 (Ref Range: 20-40 %) 29.6 (Ref Range: 20-40 %) Monocytes Percent Auto 9.4 (Ref Range: 2-11 %) 8.8 (Ref Range: 2-11 %) 9.5 (Ref Range: 2-11 %) Eosinophils Percent Auto 2.1 (Ref Range: 0-4 %) 3.8 (Ref Range: 0-4 %) 2.5 (Ref Range: 0-4 %) Basophils Percent Auto 0.3 (Ref Range: 0-2 %) 0.7 (Ref Range: 0-2 %) 0.5 (Ref Range: 0-2 %) NRBC Pct Auto 0.0 (Ref Range: 0.0-0.2 /100WBC) 0.0 (Ref Range: 0.0-0.2 /100WBC) 0.0 (Ref Range: 0.0-0.2 /100WBC) Neutrophils Absolute Auto 5.4 (Ref Range: 2.0-8.3 x10*3/uL) 4.4 (Ref Range: 2.0-8.3 x10*3/uL) 4.2 (Ref Range: 2.0-8.3 x10*3/uL) Imm Gran Abs Auto 0.02 (Ref Range: 0.00-0.03 X10*3/uL) 0.03 (Ref Range: 0.00-0.03 X10*3/uL) 0.02 (Ref Range: 0.00-0.03 X10*3/uL) Lymphocytes Absolute Auto 2.2 (Ref Range: 1.2-4.9 X10*3/uL) 2.2 (Ref Range: 1.2-4.9 X10*3/uL) 2.2 (Ref Range: 1.2-4.9 X10*3/uL) Monocytes Absolute Auto 0.8 (Ref Range: 0.1-1.2 X10*3/uL) 0.7 (Ref Range: 0.1-1.2 X10*3/uL) 0.7 (Ref Range: 0.1-1.2 X10*3/uL) Eosinophils Absolute Auto 0.2 (Ref Range: 0.0-0.4 X10*3/uL) 0.3 (Ref Range: 0.0-0.4 X10*3/uL) 0.2 (Ref Range: 0.0-0.4 X10*3/uL) Basophils Absolute Auto 0.0 (Ref Range: 0.0-0.2 X10*3/uL) 0.1 (Ref Range: 0.0-0.2 X10*3/uL) 0.0 (Ref Range: 0.0-0.2 X10*3/uL) NRBC Abs Auto 0.000 (Ref Range: 0.0-0.012 X10*3/uL) 0.000 (Ref Range: 0.0-0.012 X10*3/uL) 0.000 (Ref Range: 0.0-0.012 X10*3/uL) * Lab:Noah Velazquez. Parveen l Fast * Collection Date 10/23/2024 07/21/2024 04/21/2024 Collection Time 08:29 AM 08:41 AM 08:28 AM Order Date 10/23/2024 07/21/2024 04/21/2024 Sodium 139 (Ref Range: 135-145 mmol/L) 140 (Ref Range: 135-145 mmol/L) 140 (Ref Range: 135-145 mmol/L) Bilirubin Total 1.4 H (Ref Range: 0.0-1.0 mg/dL) 1.4 H (Ref Range: 0.0-1.0 mg/dL) 1.4 H (Ref Range: 0.0-1.0 mg/dL) Aspartate Amino Transferase 21 (Ref Range: 5-37 U/L) 24 (Ref Range: 5-37 U/L) 21 (Ref Range: 5-37 U/L) Alanine Aminotransferase 20 (Ref Range: 0-40 U/L) 14 (Ref Range: 0-40 U/L) 18 (Ref Range: 0-40 U/L) Total Protein 7.1 (Ref Range: 6.5-8.0 g/dL) 7.7 (Ref Range: 6.5-8.0 g/dL) 7.0 (Ref Range: 6.5-8.0 g/dL) Albumin Level 4.4 (Ref Range: 3.5-5.0 g/dL) 4.3 (Ref Range: 3.5-5.0 g/dL) 4.2 (Ref Range: 3.5-5.0 g/dL) Alkaline Phosphatase 77 (Ref Range: 39-117 U/L) 94 (Ref Range: 39-117 U/L) 76 (Ref Range: 39-117 U/L) Potassium 4.3 (Ref Range: 3.3-5.1 mmol/L) 4.6 (Ref Range: 3.3-5.1 mmol/L) 4.2 (Ref Range: 3.3-5.1 mmol/L) Chloride 107 (Ref Range: 96-108 mmol/L) 106 (Ref Range: 96-108 mmol/L) 107 (Ref Range: 96-108 mmol/L) Carbon Dioxide 18 L (Ref Range: 22-29 mmol/L) 20 L (Ref Range: 22-29 mmol/L) 21 L (Ref Range: 22-29 mmol/L) Anion Gap 18 (Ref Range: 12-20) 19 (Ref Range: 12-20) 16 (Ref Range: 12-20) Blood Urea Nitrogen 19 H (Ref Range: 9-16 mg/dL) 17 H (Ref Range: 9-16 mg/dL) 21 H (Ref Range: 9-16 mg/dL) Creatinine 0.89 (Ref Range: 0.5-1.4 mg/dL) 1.00 (Ref Range: 0.5-1.4 mg/dL) 1.08 (Ref Range: 0.5-1.4 mg/dL) Estimated Glomerular Filt Rate > 60 > 60 > 60 Glucose Fasting 127 H (Ref Range: 60-99 mg/dL) 120 H (Ref Range: 60-99 mg/dL) 154 H (Ref Range: 60-99 mg/dL) Calcium 9.7 (Ref Range: 8.4-10.2 mg/dL) 9.7 (Ref Range: 8.4-10.2 mg/dL) 9.6 (Ref Range: 8.4-10.2 mg/dL) * Lab:Lipid Panel * Collection Date 10/23/2024 07/21/2024 04/21/2024 Collection Time 08:29 AM 08:41 AM 08:28 AM Order Date 10/23/2024 07/21/2024 04/21/2024 Triglycerides 139 (Ref Range: <150 mg/dL) 148 (Ref Range: <150 mg/dL) 126 (Ref Range: <150 mg/dL) Cholesterol 105 (Ref Range: <200 mg/dL) 116 (Ref Range: <200 mg/dL) 115 (Ref Range: <200 mg/dL) LDL Cholesterol Calculated 46 (Ref Range: <100 mg/dL) 56 (Ref Range: <100 mg/dL) 57 (Ref Range: <100 mg/dL) HDL Cholesterol 32 L (Ref Range: >40 mg/dL) 31 L (Ref Range: >40 mg/dL) 33 L (Ref Range: >40 mg/dL) * Examination: G eneral Examination: GENERAL APPEARANCE: p leasant, well nourished, well developed, in no acute distress, calm and relaxed, obese, elderly man. HEAD: a traumatic, normocephalic. EYES: e ethel, perrla, anicteric, conjugate. EARS: n ormal. NOSE: s eptum intact. ORAL CAVITY: n ormal, unremarkable, Edentulous. NECK/THYROID: n o jugular venous distention, no carotid bruit, thyroid normal. LYMPH NODES: n o enlarged lymph nodes,spleen normal. SKIN: n o suspicious lesions, anicteric. HEART: n o clicks, gallops, murmurs, or rubs, regular rhythm, S1, S2 normal, no s3, or vascular bruits. LUNGS: c lear to auscultation . BREASTS: no masses palpable bilaterally. ABDOMEN: b owel sounds normal, no ascites, no organomegaly, no mass, centripital obesity. RECTAL EXAM: n ot examined. MUSCULOSKELETAL: e xtremities unremarkable, no clubbing, cyanosis or edema. PERIPHERAL PULSES: n ormal. NEUROLOGIC: a lert and oriented, cranial nerves 2-12 grossly intact, deep tendon reflexes 2+ symmetrical, motor strength normal upper and lower extremities, sensory exam intact, Mild memory deficits. PSYCH: a lert, orientedMild defects in memory. ? Assessment: * Assessment: 1. C oronary artery disease - I25.10 (Primary) N otes :He has had no exertional angina since his last visit. He is able to conduct all of the activities of daily life without chest pain. 2 . O besity - E66.9 N otes :He has lost 4 pounds and remains obese. We discussed weight reduction strategies. We discussed diet and nutrition today. He made a plan to lose weight at a rate of one half of a pound per week. 3 . H yperlipidemia - E78.5 N otes :His lipids are currently stable and no change in his regimen was necessary. I recommended weight loss and a healthy Mediterranean diet. 4 . T ype 2 diabetes mellitus without complication, without long-term current use of insulin - E11.9 N otes :His fasting glucose levels have been well controlled. He is compliant with his medications.? He sees his seo marketing specialist regularly. 5 . B enign prostatic hyperplasia, unspecified whether lower urinary tract symptoms present - N40.0 N otes :He rises from sleep once a night to urinate. We discussed lifestyle modifications he could make to reduce nocturia. 6 . E levated PSA - R97.20 N otes :He had to PSA determinations in 2022. They were 5.95 and 5.85. His PSA was 6.63. It is now 12.34.? I have referred him back to his urologist for further diagnostic considerations. He is asymptomatic. Plan: * Treatment: 2. H yperlipidemia L AB: PROFILE, FASTING (COMPREHENSIVE METABOLIC) L AB: CBC w DIFF L AB: Lipid Panel L AB: Hemoglobin A1c 3. T ype 2 diabetes mellitus without complication, without long-term current use of insulin L AB: PROFILE, FASTING (COMPREHENSIVE METABOLIC) L AB: CBC w DIFF L AB: Lipid Panel L AB: Hemoglobin A1c 4. O thers Continue metFORMIN HCl Tablet, 500 [...] on Friday /Friday/ Friday. * Procedure Codes: * Preventive Medicine: Counseling: C are goal [...] * Follow Up: A s Scheduled (Reason: Annual Exam) * Images: * Sign off status: Completed true * Provider: Kelsie Perez MD Date: 0 10/26/2024 Generated for Jesika venegas/Marcus/Jessicaitting on: 0 02/01/2025 10:49 AM EDT History and Physical Notes * [...] and lower extremities, sensory exam intact, Mild memory deficits SKIN: no suspicious lesion s, anicteric PERIPHERAL PULSES: normal BREASTS: no masses palpable b ilaterally MUSCULOSKELETAL: extremities unremark able, no clubbing, cyanosis or edema LYMPH NODES: no enlarged lymph no dilshad,spleen normal RECTAL EXAM: not examined PSYCH: alert, orientedMild defects in memory ORAL CAVITY: normal, unremarkable , Edentulous
--- OUTSIDE RECORDS SUMMARY | 2025-01-27 06:00 | XMS_ITS ---
Author Organization Ehsan Perez III, MD Address [address] [place] [address] [place] [address] Care Team Providers Care Energy Manager Name Role Phone Ehsan Perez Primary Care Provider Allergies Allergen (clinical drug ingredient) Drug/Non Drug Allergy documented on EMR Reaction Allergy Type Onset Date Status No Known Drug Allergy Unknown Drug Allergy Active REASON FOR VISIT Annual Exam Medications Medication SIG (Take, Route, Frequency, Duration) Notes Start Date End Date Status Metoprolol Succinate 50 MG 1 tablet Oral ly Once a day Active Atorvastatin Calcium 20 MG 1 tablet Oral Once a day Active Lisinopril-hydroCHLOROthiaz jae 10-12.5 MG 1 tablet Orally Once a day Active Accu-Chek Jeanette Plus w/Device as directed In Vitro Check blood glucose on Friday, Friday, Friday01/07/2020 Active Aspirin 325 MG 1 tablet Orally Once a day Active Furosemide 20 [...] at bedtime Orally Once a day Active metFORMIN HCl 500 MG TAKE 1 TABLET BY [facility] ONCE DAILY WITH A MEAL Active Pantoprazole Sodium 40 MG 1 tablet Orall y Once a day Active Gabapentin 100 MG Orally Ac tive Social History Tobacco Use: Social History Observation Description Date Details (start date - stop date) Never Smoker NA - NA Sex Assigned At : Social History Observation Description Sex Assigned At Male Tobacco Use/Smoking Question Answer Notes Patient is a nonsmoker Additional Findings: Tobacco Non-User Aggressive non-smoker Vital Signs Temperature 96.8 degrees Fahrenheit 01/28/20 25 Blood pressure systolic 120 mm Hg 01/28/20 25 Blood pressure diastolic 80 mm Hg 025 Heart Rate 82 /min 01/27/2025 Height 66 in 01/27/2025 Weight 196 lbs 01/27/2025 BMI 31.63 kg/m2 01/27/2025 Oximetry 98 % 01/27/2025 Encounters Encounter Location Date Provider Diagnosis Ehsan Perez III, MD [address] [place] [address] [place] [address] 01/27/2025 Ehsan Perez Obesity E66.9 ; Kaela nary artery disease I25.10 ; Hyperlipidemia E78.5 ; Essential hypertension I10 ; Diabetes E11.9 ; Multiple rib fractures involving four or more ribs S22.49XA ; Mild dementia with agitation, unspecified dementia type F03.A11 and Elevated PSA R97.20 Assessments Encounter Date Diagnosis (ICD Code) Assessment Notes Treat ment Notes Treatment Clinical Notes 01/27/2025 Obesity (ICD-10 - E66.9) He has gained 4 pounds and remains obese. We discussed weight reduction strategies. We discussed diet and nutrition today. He made a plan to lose weight at a rate of one half of a pound per week. 01/27/2025 Coronary artery disease (ICD-10 - I25.10) He has had no exertional angina since his last visit. He is able to conduct all of the activities of daily life without chest pain. 01/27/2025 Hyperlipidemia (ICD-10 - E78.5) His lipids are currently stable and no change in his regimen was necessary. I recommended weight loss and a healthy Mediterranean diet. 01/27/2025 Essential hypertension (ICD-10 - I10) His blood pressure is Controlled.. No change in his regimen was needed. I strongly recommend aggressive sodium restriction and ongoing weight loss. 01/27/2025 Diabetes (ICD-10 - E11.9) He has been compliant with medications. His hemoglobin A1c is 5.4. He is up-to-date with ophthalmology. No change in his regimen was made. 01/27/2025 Multiple rib fractures involving four or more ribs (ICD-10 - S22.49XA) The area has healed and he is breathing comfortably. He has a long vertical scar over his right chest wall but it is not painful when he coughs and sneezes. 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 He has shown some agitation home with anger, throwing things and using language. After discussing this with him and his we have begun him on donepezil. 01/27/2025 Elevated PSA (ICD-10 - R97.20) His PSA was 12.34 in September 2024. He still has not been to the neurologist. We have made another referral today. Plan Of Treatment Medication Medication Name Sig Start Date Stop Date Notes Metoprolol Succinate 50 MG 1 tablet Orally Once a day Atorvastatin Calcium 20 MG 1 tablet Oral Once a day Lisinopril-hydroCHLOROthiazi de 10-12.5 MG 1 tablet Orally Once a day Accu-Chek Jeanette Plus w/Device as directe d In Vitro Check blood glucose on Friday, Friday, Friday01/07/2020 Aspirin 325 MG 1 tablet Orally Once a day Furosemide 20 MG 1 tablet Orally Once a day [employer] Lancets Fine 30G USE DIRECTED FOR TESTING BLOOD SUGARS FASTING ON MONDAYS, WEDNESDAYS, AND FRIDAYS OneTouch Ultra - as directed In Vitro use 1 strip to check blood sugar on Friday /Friday/ Friday09/09/2022 Donepezil HCl 10 MG 1 tablet at bedtime Orally Once a day metFORMIN HCl 500 MG TAKE 1 TABLET BY [facility] ONCE DAILY WITH A MEAL Pantoprazole Sodium 40 MG 1 tablet Orally Once a day Gabapentin 100 MG Orally Pending Test Test Name Order Date PROFILE, FASTING (COMPREHENSIVE METABOLI C) 01/27/2025 CBC w DIFF 01/27/2025 Lipid Panel 01/27/2025 PSA Free and Total 01/27/2025 Microalbumin, Random 01/27/2025 Hemoglobin A1c 01/27/2025 Next Appt Details Follow Up: 3 Months, Reason: F/U Provider Name:Ehsan Perez, 04/28/2025 10:00:00 AM, [address] [place] [address] [address], [place], [phone], Provider Name:Ehsan Perez, 01/31/2026 10:00:00 AM, [address] [place] [address] [address], [place], [address], Progress Notes * Reema LOCKECarmellaOB:1940 ( 84 yo M)Acc No.[id number]:01/27/2025 Progress Notes Patient: Ramakrishna CABELLO Provider: Kelsie Perez MD :1940 A ge:84 Y S ex:Male Date:01/27/2025 Address:[address] [place] [id number] Subjective: * Chief Complaints: * A nnual Exam * HPI: D epression Screening: He returns to the office at the age of 84 for his annual physical exam. He denies any new pains. He is living independently at home with his . He denies shortness of breath or chest pain or bleeding. He has been compliant with all of his medications. PHQ-9 L ittle interest or pleasure in doing things?Several days F eeling down, depressed, or hopeless N ot at all T rouble falling or staying asleep, or sleeping too much N early every day F eeling tired or having little energy N ot at all P oor appetite or overeating N ot at all F eeling bad about yourself or that you are a failure, or have let yourself or your family down N ot at all T rouble concentrating on things, such as reading the newspaper or watching television N early every day M oving or speaking so slowly that other people could have noticed; or the opposite, being so fidgety or restless that you have been moving around a lot more than usual N ot at all T houghts that you would be better off or of hurting yourself in some way N ot at all T otal Score 7 I nterpretation M ild Depression C OVID-19 Screening: gets eye shot q 3 months, fbs 116 to 131. Questions H ave you had any new onset fever, chills, cough, congestion, sore throat, shortness of breath, muscle aches? N o F all Risk Screening: Fall History H ave you had any falls with injury in the past year? N o H ave you had two or more falls in the past year? N o F all Risk Assessment: N o falls in the past year S KYUNG Questions: SDOH Questions I n the past year have you been worried about losing your housing? N o I n the past year have you or any family members you live with been unable to get any of the following when it was really needed? Check all that apply: D ecline to answer * ROS: G eneral/Constitutional: pain o nly normal aches and pains. C hills d enies.?Fatigue a dmits. F ever d enies. E NT: Decreased hearing i n both ears. R espiratory: Cough d enies. C ardiovascular: Chest pain with exertion d enies. D yspnea on exertion?denies. S hortness of breath d enies. G astrointestinal: Constipation o ccasional. D ecreased appetite d enies. D iarrhea d enies. H eartburn o ccasional. N ausea d enies. R ectal bleeding d enies. V omiting d enies. H ematology: bruising d enies. p etechiae d enies. S wollen glands n one have been noted. G enitourinary: Frequent urination d enies. M usculoskeletal: Muscle aches d enies. P [...] ggressive non-smoker John pinzon was born in [place]. He has been to [place] for 25 years. He has no children. 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 * Medications: T akingmetFORMIN HCl 500 MG [...] tablet Orally Once a day Taking OneTouch [employer] Lancets Fine 30G Miscellaneous USE DIRECTED FOR [...] * Vitals: H t: 66, Wt:196, BMI:31.63, BP:120/80, HR:82, Temp:96.8, Oxygen sat %:98, Wt-k.9. * P ast Orders: Lab:Complete Blood Count Aut o Diff * Collection Date 01/20/2025 10/23/2024 07/21/2024 Collection Time 09:03 AM 08:29 AM 08:41 AM Order Date 01/20/2025 10/23/2024 07/21/2024 White Blood Count 9.1 (Ref Range: 4.8-10.8 X10*3/uL) 8.7 (Ref Range: 4.8-10.8 X10*3/uL) 7.7 (Ref Range: 4.8-10.8 X10*3/uL) Red Blood Count 5.01 (Ref Range: 4.60-5.80 X10*6/uL) 5.35 (Ref Range: 4.60-5.80 X10*6/uL) 5.32 (Ref Range: 4.60-5.80 X10*6/uL) Hemoglobin 15.5 (Ref Range: 14.0-18.0 g/dl) 16.5 (Ref Range: 14.0-18.0 g/dl) 16.4 (Ref Range: 14.0-18.0 g/dl) Hematocrit 46.2 (Ref Range: 42.0-52.0 %) 47.9 (Ref Range: 42.0-52.0 %) 47.9 (Ref Range: 42.0-52.0 %) Mean Corpuscular Volume 92.2 (Ref Range: 80.0-98.0 fL) 89.5 (Ref Range: 80.0-98.0 fL) 90.0 (Ref Range: 80.0-98.0 fL) Mean Corpuscular Hemoglobin 30.9 (Ref Range: 27.0-33.0 pg) 30.8 (Ref Range: 27.0-33.0 pg) 30.8 (Ref Range: 27.0-33.0 pg) Mean Corpuscular HGB Conc 33.5 (Ref Range: 31.0-36.0 g/dl) 34.4 (Ref Range: 31.0-36.0 g/dl) 34.2 (Ref Range: 31.0-36.0 g/dl) Red Cell Distribution Width 14.4 (Ref Range: 11.0-16.0 %) 14.2 (Ref Range: 11.0-16.0 %) 13.8 (Ref Range: 11.0-16.0 %) Platelet Count 197 (Ref Range: 160-400 X10*3/uL) 197 (Ref Range: 160-400 X10*3/uL) 237 (Ref Range: 160-400 X10*3/uL) Mean Platelet Volume 9.2 L (Ref Range: 9.4-12.4 fL) 9.1 L (Ref Range: 9.4-12.4 fL) 9.0 L (Ref Range: 9.4-12.4 fL) Neutrophils Percent Auto 67.7 (Ref Range: 45-73 %) 62.5 (Ref Range: 45-73 %) 57.7 (Ref Range: 45-73 %) Imm Gran Pct Auto 0.4 (Ref Range: 0.0-0.4 %) 0.2 (Ref Range: 0.0-0.4 %) 0.4 (Ref Range: 0.0-0.4 %) Lymphocytes Percent Auto 20.6 (Ref Range: 20-40 %) 25.5 (Ref Range: 20-40 %) 28.6 (Ref Range: 20-40 %) Monocytes Percent Auto 9.2 (Ref Range: 2-11 %) 9.4 (Ref Range: 2-11 %) 8.8 (Ref Range: 2-11 %) Eosinophils Percent Auto 1.7 (Ref Range: 0-4 %) 2.1 (Ref Range: 0-4 %) 3.8 (Ref Range: 0-4 %) Basophils Percent Auto 0.4 (Ref Range: 0-2 %) 0.3 (Ref Range: 0-2 %) 0.7 (Ref Range: 0-2 %) NRBC Pct Auto 0.0 (Ref Range: 0.0-0.2 /100WBC) 0.0 (Ref Range: 0.0-0.2 /100WBC) 0.0 (Ref Range: 0.0-0.2 /100WBC) Neutrophils Absolute Auto 6.1 (Ref Range: 2.0-8.3 x10*3/uL) 5.4 (Ref Range: 2.0-8.3 x10*3/uL) 4.4 (Ref Range: 2.0-8.3 x10*3/uL) Imm Gran Abs Auto 0.04 H (Ref Range: 0.00-0.03 X10*3/uL) 0.02 (Ref Range: 0.00-0.03 X10*3/uL) 0.03 (Ref Range: 0.00-0.03 X10*3/uL) Lymphocytes Absolute Auto 1.9 (Ref Range: 1.2-4.9 X10*3/uL) 2.2 (Ref Range: 1.2-4.9 X10*3/uL) 2.2 (Ref Range: 1.2-4.9 X10*3/uL) Monocytes Absolute Auto 0.8 (Ref Range: 0.1-1.2 X10*3/uL) 0.8 (Ref Range: 0.1-1.2 X10*3/uL) 0.7 (Ref Range: 0.1-1.2 X10*3/uL) Eosinophils Absolute Auto 0.2 (Ref Range: 0.0-0.4 X10*3/uL) 0.2 (Ref Range: 0.0-0.4 X10*3/uL) 0.3 (Ref Range: 0.0-0.4 X10*3/uL) Basophils Absolute Auto 0.0 (Ref Range: 0.0-0.2 X10*3/uL) 0.0 (Ref Range: 0.0-0.2 X10*3/uL) 0.1 (Ref Range: 0.0-0.2 X10*3/uL) NRBC Abs Auto 0.000 (Ref Range: 0.0-0.012 X10*3/uL) 0.000 (Ref Range: 0.0-0.012 X10*3/uL) 0.000 (Ref Range: 0.0-0.012 X10*3/uL) * Lab:Comprehensive Caroline. [place]one l Fast * Collection Date 01/20/2025 10/23/2024 07/21/2024 Collection Time 09:03 AM 08:29 AM 08:41 AM Order Date 01/20/2025 10/23/2024 07/21/2024 Sodium 138 (Ref Range: 135-145 mmol/L) 139 (Ref Range: 135-145 mmol/L) 140 (Ref Range: 135-145 mmol/L) Bilirubin Total 1.2 H (Ref Range: 0.0-1.0 mg/dL) 1.4 H (Ref Range: 0.0-1.0 mg/dL) 1.4 H (Ref Range: 0.0-1.0 mg/dL) Aspartate Amino Transferase 22 (Ref Range: 5-37 U/L) 21 (Ref Range: 5-37 U/L) 24 (Ref Range: 5-37 U/L) Alanine Aminotransferase 20 (Ref Range: 0-40 U/L) 20 (Ref Range: 0-40 U/L) 14 (Ref Range: 0-40 U/L) Total Protein 7.0 (Ref Range: 6.5-8.0 g/dL) 7.1 (Ref Range: 6.5-8.0 g/dL) 7.7 (Ref Range: 6.5-8.0 g/dL) Albumin Level 4.4 (Ref Range: 3.5-5.0 g/dL) 4.4 (Ref Range: 3.5-5.0 g/dL) 4.3 (Ref Range: 3.5-5.0 g/dL) Alkaline Phosphatase 83 (Ref Range: 39-117 U/L) 77 (Ref Range: 39-117 U/L) 94 (Ref Range: 39-117 U/L) Potassium 4.6 (Ref Range: 3.3-5.1 mmol/L) 4.3 (Ref Range: 3.3-5.1 mmol/L) 4.6 (Ref Range: 3.3-5.1 mmol/L) Chloride 103 (Ref Range: 96-108 mmol/L) 107 (Ref Range: 96-108 mmol/L) 106 (Ref Range: 96-108 mmol/L) Carbon Dioxide 25 (Ref Range: 22-29 mmol/L) 18 L (Ref Range: 22-29 mmol/L) 20 L (Ref Range: 22-29 mmol/L) Anion Gap 15 (Ref Range: 12-20) 18 (Ref Range: 12-20) 19 (Ref Range: 12-20) Blood Urea Nitrogen 14 (Ref Range: 9-16 mg/dL) 19 H (Ref Range: 9-16 mg/dL) 17 H (Ref Range: 9-16 mg/dL) Creatinine 0.95 (Ref Range: 0.5-1.4 mg/dL) 0.89 (Ref Range: 0.5-1.4 mg/dL) 1.00 (Ref Range: 0.5-1.4 mg/dL) Estimated Glomerular Filt Rate > 60 > 60 > 60 Glucose Fasting 122 H (Ref Range: 60-99 mg/dL) 127 H (Ref Range: 60-99 mg/dL) 120 H (Ref Range: 60-99 mg/dL) Calcium 9.6 (Ref Range: 8.4-10.2 mg/dL) 9.7 (Ref Range: 8.4-10.2 mg/dL) 9.7 (Ref Range: 8.4-10.2 mg/dL) * Lab:Lipid Panel * Collection Date 01/20/2025 10/23/2024 07/21/2024 Collection Time 09:03 AM 08:29 AM 08:41 AM Order Date 01/20/2025 10/23/2024 07/21/2024 Triglycerides 133 (Ref Range: <150 mg/dL) 139 (Ref Range: <150 mg/dL) 148 (Ref Range: <150 mg/dL) Cholesterol 112 (Ref Range: <200 mg/dL) 105 (Ref Range: <200 mg/dL) 116 (Ref Range: <200 mg/dL) LDL Cholesterol Calculated 56 (Ref Range: <100 mg/dL) 46 (Ref Range: <100 mg/dL) 56 (Ref Range: <100 mg/dL) HDL Cholesterol 30 L (Ref Range: >40 mg/dL) 32 L (Ref Range: >40 mg/dL) 31 L (Ref Range: >40 mg/dL) * Lab:Hemoglobin A1c * Collection Date 01/20/2025 10/23/2024 07/21/2024 Collection Time 09:03 AM 08:29 AM 08:41 AM Order Date 01/20/2025 10/23/2024 07/21/2024 Hemoglobin A1c % 5.5 (Ref Range: <6.0 %) 5.6 (Ref Range: <6.0 %) 5.4 (Ref Range: <6.0 %) Estimated Average Glucose 111 (Ref Range: mg/dL) 114 (Ref Range: mg/dL) 108 (Ref Range: mg/dL) * Examination: G eneral Examination: GENERAL APPEARANCE: p leasant, well nourished, well developed, in no acute distress, calm and relaxed: obese: man. HEAD: a traumatic, normocephalic. EYES: e ethel, perrla, anicteric, conjugate. EARS: n ormal. NOSE: s eptum intact. ORAL CAVITY: n ormal, unremarkable. NECK/THYROID: n o jugular venous distention, no carotid bruit, thyroid normal. LYMPH NODES: n o enlarged lymph nodes,spleen normal. SKIN: n o suspicious lesions, anicteric. HEART: n o clicks, gallops, murmurs, or rubs, regular rhythm, S1, S2 normal, no s3, or vascular bruits. LUNGS: c lear to auscultation, Healed surgical scars right chest wall. BREASTS: no masses palpable bilaterally. ABDOMEN: b owel sounds normal, no ascites, no organomegaly, no mass: centripital obesity. RECTAL EXAM: n ot examined. MUSCULOSKELETAL: e xtremities unremarkable, no clubbing, cyanosis or edema. PERIPHERAL PULSES: n ormal. NEUROLOGIC: a lert and oriented, cranial nerves 2-12 grossly intact, deep tendon reflexes 2+ symmetrical, motor strength normal upper and lower extremities, sensory exam intact, Speech clear, poor memory. PSYCH: a lert, oriented, Memory poor. ? Assessment: * Assessment: 1. C oronary artery disease - I25.10 (Primary) N otes :He has had no exertional angina since his last visit. He is able to conduct all of the activities of daily life without chest pain. 2 . O besity - E66.9 N otes :He has gained 4 pounds and remains obese. We discussed [...] and a healthy Mediterranean diet. 4 . E ssential hypertension - I10 N otes :His blood pressure is Controlled.. No change in his regimen was needed. I strongly recommend aggressive sodium restriction and ongoing weight loss. 5 . D iabetes - E11.9 N otes :He has been compliant with medications. His hemoglobin A1c is 5.4. He is up-to-date with ophthalmology. No change in his regimen was made. 6 . M ultiple rib fractures involving four or more ribs - S22.49XA ?Notes :The area has healed and he is breathing comfortably. He has a long vertical scar over his right chest wall but it is not painful when he coughs and sneezes. 7 . M ild dementia with agitation, unspecified dementia type - F03.A11 ? N otes :He has become increasingly for doubtful times and places. He has shown some agitation home with anger, throwing things and using language. After discussing this with him and his we have begun him on donepezil. 8 . E levated PSA - R97.20 N otes :His PSA was 12.34 in September 2024. He still has not been to the neurologist. We have made another referral today. Plan: * Treatment: 2. O thers Continue [...] Friday /Friday/ Friday. * Procedure Codes: 9 4760 MEASURE BLOOD OXYGEN LEVEL * Preventive Medicine: Counseling: C are goal [...] without too much effort. T reatment Goals B lood Sugars less than < 115.? B arriers n o barriers. S elf-Managment Goals W ork on weight loss, with a goal of losing 1 lb per week. * Follow Up: 3 Months (Reason: F/U) * Images: * Sign off status: Completed true * Provider: Kelsie Perez MD Date: 0 01/27/2025 Generated for Printi ng/Marcus/eTransmitting on: 0 02/01/2025 10:49 AM EDT History and Physical Notes * HPI (History of Present Illness) Category Sub-Category Detail Notes Depression Screening PHQ-9 Little inte rest or pleasure in doing things: Several days Feeling down, depressed, or hopeless: No t [...] as reading the newspaper or watching television: Nearly every day Moving or speaking so slowly that other people could have noticed; or the opposite, being so fidgety or restless that you have been moving around a lot more than usual: Not at all Thoughts that you would be b rocio off or of hurting yourself in some way: Not at all Total Score: 7 Interpretation: Mild Depression Fall Risk Screening Fall History Have you had any falls with injury in the past year?: No Have you had two or more falls in the year?: No Fall Risk Assessment:: No falls in the year COVID-19 Screening Questions Have you had any new onset fever, chills, cough, congestion, sore throat, shortness of breath, muscle aches?: No SDOH Questions SDOH Questions In the past year have you been worried about losing your housing?: No In the past year have you or any family members you live with been unable to get any of the following when it was really needed? Check all that apply:: Decline to answer Examination Category Sub-Category Detail Notes General Examination GENERAL APPEARANCE: pleasant , well nourished, well developed, in no acute distress, calm and relaxed: obese: man HEAD: atraumatic, normocep halic EYES: eomi, perrla, anicte magdalene, conjugate EARS: normal NOSE: septum intact NECK/THYROID: no jugular venous di stention, no carotid bruit, thyroid normal HEART: no clicks, gallops, murmurs, or rubs, regular rhythm, S1, S2 normal, no s3, or vascular bruits LUNGS: clear to auscultatio n, Healed surgical scars right chest wall ABDOMEN: bowel sounds normal, no ascites, no organomegaly, no mass: centripital obesity NEUROLOGIC: alert and oriented, cranial nerves 2-12 grossly intact, deep tendon reflexes 2+ symmetrical, motor strength normal upper and lower extremities, sensory exam intact, Speech clear, poor memory SKIN: no suspicious lesion s, anicteric PERIPHERAL PULSES: normal BREASTS: no masses palpable b ilaterally MUSCULOSKELETAL: extremities unremark able, no clubbing, cyanosis or edema LYMPH NODES: no enlarged lymph no dilshad,spleen normal RECTAL EXAM: not examined PSYCH: alert, oriented, Mem ory poor ORAL CAVITY: normal, unremarkable
--- OUTSIDE RECORDS SUMMARY | 2025-01-31 10:27 | XMS_ITS ---
Author Organization Ehsan Perez III, MD Address [address] [place] [address] [place] [address] Care Team Providers Care Press Department Manager Name Role Phone Ehsan Perez Primary Care Provider [phone] REASON FOR VISIT Urology Referral Social History Sex Assigned At : Social History Observation Description Sex Assigned At Male Encounters Encounter Location Date Provider Diagnosis Ehsan Perez III, MD [address] [place] [address] [place] [address] 01/31/2025 Ehsan Perez Elevated PSA R97.20 Assessments Encounter Date Diagnosis (ICD Code) Assessment Notes Treatment Notes Treatment Clinical Notes 01/31/2025 Elevated PSA (ICD-10 - R97.20) Plan Of Treatment Pending Test Test Name Order Date PSA Free and Total 01/31/2025 Next Appt Details Provider Name:Ehsan Perez, 04/28/2025 10:00:00 AM, [address] [place] [address] [address], [place], [phone], Provider Name:Ehsan Perez, 01/31/2026 10:00:00 AM, [address] [place] [address] [address], [place], [phone], Progress Notes * Mauri LOCKE:1940 ( 85 yo M)Acc No.[id number]:01/31/2025 Patient: Reema CABELLOy :1940 A ge:85 Y S ex:Male Address:[address] [place] [address] [place] [address] Subjective: * Chief Complaints: * U rology Referral * Medical History: * Surgical History: * Hospitalization/Major Diagno stic Procedure: * Medications: Objective: * Vitals: * Physical Examination: Assessment: * Assessment: 1. E levated PSA - R97.20 Plan: * Treatment: * Procedure Codes: * * Date:
--- OUTSIDE RECORDS SUMMARY | 2025-02-01 10:49 | XMS_ITS | Patient Health Record ---
Author Organization [facility] Address [address] [place] [address] Care Team Providers Care Support Merchandiser Name Role Phone Ehsan Perez MD Primary Care Provider Unavailab leydi Serna Jr Elier Unavailable Reason For Referral No Information Medications Medication [...] Problem Status W/U Status Risk Notes Problem [id number] Colon cancer screening (V76.51) Active confirmed Problem [id number] [facility] current use of aspirin (V58.66) Active confirmed Problem [id number] Rectal bleeding (K62.5) Active confirmed Plan Of Treatment Future Test Test Name Order Date COLONOSCOPY 02/09/2015 Insurance Providers Payer Name Payer Address Payer Phone Subscriber Number Group Number Insured Name Patient Relationship to Insured Coverage Start Date Coverage End Date MEDICARE OF [place] [address] [place] [id number] JOSE ALFREDO WEBSTER Self - patient is the insured [facility] [employer] [address] [place] [address] [phone] [id number] JOSE ALFREDO WEBSTER Self - patient is the insured Medical (General) History Medical History History ICD Code Colonoscopy, 1998, 2009, hyperplastic po lyps, tubular adenomas Coronary artery disease with history of coronary artery bypass grafting Denies DM,CVA,Lung disease,renal disease Surgical History Surgery Date(Month/Year) Appendectomy bypass hernia repair
--- OUTSIDE RECORDS SUMMARY | 2025-02-01 10:50 | XMS_ITS | Patient Health Record ---
Author Organization Ehsan Perez III, MD Address [address] [place] [address] [place] [address] Care Team Providers Care Compliance Program Manager Name Role Phone Ehsan Perez Primary Care Provider Allergies Allergen (clinical drug ingredient) Drug/Non Drug Allergy documented on EMR Reaction Allergy Type Onset Date Status No Known Drug Allergy Unknown Drug Allergy Active Results Component Value Reference Range Notes Complete Blood Count Auto Di ff Reviewed date:04/22/2024 07:05:44 AM Interpretation: Performing Lab:[facility], [address] [place] [address] Notes/Report: White Blood Count 7.3 4.8-10.8 X10*3/uL [...] NRBC Abs Auto 0.000 0.0-0.012 X10*3/uL Comprehensive [place]. Panel Fa st Reviewed date:04/22/2024 07:05:44 AM Interpretation: Performing Lab:[facility], [address] [place] [phone] Notes/Report: Sodium 140 135-145 mmol/L Potassium 4.2 [...] Panel Reviewed date:04/22/2024 07:05:44 AM Interpretation: Performing Lab:[facility], [address] [place] [phone] Notes/Report: Triglycerides 126 <150 mg/dL Desirable Triglyceride: [...] Total Reviewed date:05/19/2024 08:50:49 AM Interpretation: Performing Lab:[facility], [address] [place] [phone] Notes/Report: Prostate Specific Ag Total 6.0 < [...] 30 93 9 (3)Catalona et al.:SABA 277: 5763-6130 (1996) (4)Catalona et al.:SABA 279: 6756-1459 (1997) (x)These estimates vary with age, ethnicity, [...] mind. PSA was performed using the Wagner Mcneal Immunoassay method. Values obtained from different assay methods cannot be used interchangeably. PSA levels, regardless of value, should not be interpreted as absolute evidence of the presence or absence of disease. THIS TEST WAS PERFORMED AT: [facility] [facility] [address] [place] [phone] TOSHIA JENKINS MD Free Prostate Spec Ag 1.4 Complete Blood Count Auto Di ff Reviewed date:07/26/2024 11:24:32 AM Interpretation: Performing Lab:[facility], [address] [place] [phone] Notes/Report: White Blood Count 7.7 4.8-10.8 X10*3/uL [...] NRBC Abs Auto 0.000 0.0-0.012 X10*3/uL Comprehensive [place]. Panel Fa st Reviewed date:07/26/2024 11:24:32 AM Interpretation: Performing Lab:[facility], [address] [place] [phone] Notes/Report: Sodium 140 135-145 mmol/L Potassium 4.6 [...] Panel Reviewed date:07/26/2024 11:24:32 AM Interpretation: Performing Lab:[facility], [address] [place] [phone] Notes/Report: Triglycerides 148 <150 mg/dL Desirable Triglyceride: [...] Random Reviewed date:07/26/2024 11:24:32 AM Interpretation: Performing Lab:[facility], [address] [place] [phone] Notes/Report: Creatinine Urine 198.88 Microalbumin Urine 16.0 Microalbum/Creatinine Ratio Ur 8.0 <30 ug/mg cr Albumin/Creatinine Ratio Reference Ranges: Normal: < 30 ug/mg creatinine Microalbuminuria: 30 - 300 ug/mg creatinine Clinical Albuminuria: > 300 ug/mg creatinine Hemoglobin A1c Reviewed date:07/26/2024 11:24:32 AM Interpretation: Performing Lab:[address] [address] Notes/Report: Hemoglobin A1c % 5.4 <6.0 % [...] average glucose, using the formula of the C5J-Kuxuzox Average Glucose study (ADAG), Diabetes Care, Vol.31,#8, Dec. 2007 XR hip LT w PEL1V Reviewed date:10/14/2024 05:27:14 AM Interpretation: Performing Lab: Notes/Report: [address] [address] XRay Report Signed Patient: Ramakrishna Locke MR#: [id number] 0 : 1940 Acct:[id number] Age/Sex: 84 / M ADM Date: 10/13/24 Loc: HO.ED Attending Dr: Ordering Physician: Lexi Moyer NP Date of Service: 10/13/24 Procedure(s): XR hip LT w PEL1V Accession Number(s): [id number] cc: Ehsan Perez MD; Lexi Moyer NP [...] Wisam Evans MD 10/13/2024 12:06 PM EDT Dictated By: Wisam Evans MD Signed By: <Electronically signed by Wisam Evans MD in OV> 10/13/24 1206 DD/ 1131 TD/TT: 10/13/24 1150 Client Relation Specialist: [address] [address] XRay Report Signed Patient: Ramakrishna Locke MR#: [id number] 0 : 1940 Acct:[id number] Age/Sex: 84 / M ADM Date: 10/13/24 Loc: HO.ED Attending Dr: Ordering Physician: Lexi Moyer NP Date of Service: 10/13/24 Procedure(s): XR hip LT w PEL1V Accession Number(s): [id number] cc: Ehsan Perez MD; Lexi Moyer NP [...] 10/13/24 1206 DD/ 1131 TD/TT: 10/13/24 1150 Client Relation Specialist: Complete Blood Count Auto Di ff Reviewed date:10/24/2024 07:53:19 PM Interpretation: Performing Lab:[facility], [address] [place] [phone] Notes/Report: White Blood Count 8.7 4.8-10.8 X10*3/uL [...] NRBC Abs Auto 0.000 0.0-0.012 X10*3/uL Comprehensive [place]. Panel Fa st Reviewed date:10/24/2024 07:53:19 PM Interpretation: Performing Lab:[facility], [address] [place] [phone] Notes/Report: Sodium 139 135-145 mmol/L Potassium 4.3 [...] Panel Reviewed date:10/24/2024 07:53:19 PM Interpretation: Performing Lab:[address] [address] Notes/Report: Triglycerides 139 <150 mg/dL Desirable Triglyceride: [...] Antigen Reviewed date:10/24/2024 07:53:19 PM Interpretation: Performing Lab:[address] [address] Notes/Report: Prostate Specific Antigen 12.34 <0.05-4.0 ng/mL PSA methodology: Griffith Alinity i Chemiluminescent Microparticle Immunoassay (CMIA) Hemoglobin A1c Reviewed date:10/24/2024 07:53:19 PM Interpretation: Performing Lab:[address] [address] Notes/Report: Hemoglobin A1c % 5.6 <6.0 % [...] average glucose, using the formula of the H0W-Etgwhkq Average Glucose study (ADAG), Diabetes Care, Vol.31,#8, Dec. 2007 Complete Blood Count Auto Di ff Reviewed date:01/27/2025 10:00:11 AM Interpretation: Performing Lab:[facility], [address] [place] [phone] Notes/Report: White Blood Count 9.1 4.8-10.8 X10*3/uL Red Blood Count 5.01 4.60-5.80 X10*6/uL Hemoglobin 15.5 14.0-18.0 g/dl Hematocrit 46.2 42.0-52.0 % Mean Corpuscular Volume 92.2 80.0-98.0 fL Mean Corpuscular Hemoglobin 30.9 27.0-33.0 pg Mean Corpuscular HGB Conc 33.5 31.0-36.0 g/dl Red Cell Distribution Width 14.4 11.0-16.0 % Platelet Count 197 160-400 X10*3/uL Mean Platelet Volume 9.2 9.4-12.4 fL Neutrophils Percent Auto 67.7 45-73 % Imm Gran Pct Auto 0.4 0.0-0.4 % Lymphocytes Percent Auto 20.6 20-40 % Monocytes Percent Auto 9.2 2-11 % Eosinophils Percent Auto 1.7 0-4 % Basophils Percent Auto 0.4 0-2 % NRBC Pct Auto 0.0 0.0-0.2 /100WBC Neutrophils Absolute Auto 6.1 2.0-8.3 x10*3/u L Imm Gran Abs Auto 0.04 0.00-0.03 X10*3/uL Lymphocytes Absolute Auto 1.9 1.2-4.9 X10*3/u L Monocytes Absolute Auto 0.8 0.1-1.2 X10*3/uL Eosinophils Absolute Auto 0.2 0.0-0.4 X10*3/u L Basophils Absolute Auto 0.0 0.0-0.2 X10*3/uL NRBC Abs Auto 0.000 0.0-0.012 X10*3/uL Comprehensive [place]. Panel Fa st Reviewed date:01/27/2025 10:00:11 AM Interpretation: Performing Lab:[facility], [address] [place] [phone] Notes/Report: Sodium 138 135-145 mmol/L Potassium 4.6 3.3-5.1 mmol/L Chloride 103 96-108 mmol/L Carbon Dioxide 25 22-29 mmol/L Anion Gap 15 12-20 Blood Urea Nitrogen 14 9-16 mg/dL Creatinine 0.95 0.5-1.4 mg/dL Estimated Glomerular Filt Rate > 60 Chronic Kidney Disease: Estimated GFR < 60 mL/min/1.73m2 Severe Kidney Disease: Estimated GFR < 15 mL/min/1.73m2 Glucose Fasting 122 60-99 mg/dL A fasting glucose from 100-125 mg/dl is considered impaired (pre-diabetes). Calcium 9.6 8.4-10.2 mg/dL Bilirubin Total 1.2 0.0-1.0 mg/dL Aspartate Amino Transferase 22 5-37 U/L Alanine Aminotransferase 20 0-40 U/L Total Protein 7.0 6.5-8.0 g/dL Albumin Level 4.4 3.5-5.0 g/dL Alkaline Phosphatase 83 39-117 U/L Lipid Panel Reviewed date:01/27/2025 10:00:11 AM Interpretation: Performing Lab:[facility], [address] [place] [phone] Notes/Report: Triglycerides 133 <150 mg/dL Desirable Triglyceride: less than 150 mg/dL Borderline High Triglyceride 150-199 mg/dL High Triglyceride: 200-499 mg/dL Very High Triglyceride: greater than or equal to 5OO mg/dL Cholesterol 112 <200 mg/dL Desirable Cholesterol: less than 200 mg/dL Borderline High Cholesterol: 200-239 mg/dL High Cholesterol: greater than 239 mg/dL LDL Cholesterol Calculated 56 <100 mg/dL Desirable LDL: less than 100 mg/dL Near Optimal/Above Optimal LDL: 110-129 mg/dL Borderline High LDL: 130-159 mg/dL High LDL: 160-189 mg/dL Very High LDL: greater than or equal to 190 mg/dL HDL Cholesterol 30 >40 mg/dL Desirable HDL: greater than 40 mg/dL Note: This HDL assay may give artificially low results in patients with liver disease. Hemoglobin A1c Reviewed date:01/27/2025 10:00:11 AM Interpretation: Performing Lab:[facility], [address] [facility], [place] [address] Notes/Report: Hemoglobin A1c % 5.5 <6.0 % [...] average glucose, using the formula of the Q6S-Wxezdsb Average Glucose study (ADAG), Diabetes Care, Vol.31,#8, 2007 Reason For Referral No Information Medications [...] at bedtime Orally Once a day Active Metoprolol Succinate 50 MG 1 tablet Oral ly Once a day Active Atorvastatin Calcium 20 MG 1 tablet Oral Once a day Active Lisinopril-hydroCHLOROthiaz jae 10-12.5 MG 1 tablet Orally Once a day Active Accu-Chek Jeanette Plus w/Device as directed In Vitro Check blood glucose on Friday, Friday, Friday01/07/2020 Active metFORMIN HCl 500 MG TAKE 1 TABLET BY [facility] ONCE DAILY WITH A MEAL Active Aspirin 325 MG 1 tablet Orally [...] Administered Influenza, quad IM Intramuscular 04/24/2023 Administered COVID 19 Moderna Unknown 11/08/2020 Administered Influenza-iiv4 p-free high dose Unknown 02/24/2020 Administered COVID 19 Moderna Unknown 10/11/2020 Administered Fluzone High-Dose (HD-IIV3) Unknown 03/31/2024 Administered Social History Tobacco Use: Social History [...] Problem Status W/U Status Risk Notes Problem 04050982 Hyperlipidemia (E78.5) Active confirmed His lipids are currently stable and no change in his regimen was necessary. I recommended weight loss and a healthy Mediterranean diet. Problem 859074179 Obesity (E66.9) Active confirmed He has gained 4 pounds and remains obese. We discussed weight reduction strategies. We discussed diet and nutrition today. He made a plan to lose weight at a rate of one half of a pound per week. Problem Type II diabetes mellitus without complication (618433649) Diabetes (E11.9) Active confirmed He has been compliant with medications. His hemoglobin A1c is 5.4. He is up-to-date with ophthalmology. No change in his regimen was made. Problem 14501848 Coronary artery disease (I25.10) Active confirmed He has had no exertional angina since his last visit. He is able to conduct all of the activities of daily life without chest pain. Problem 97191399 Essential hypertension (I10) Active confirmed His blood pressure is Controlled.. No change in his regimen was needed. I strongly recommend aggressive sodium restriction and ongoing weight loss. Problem 74475775 Bilateral cataracts (H26.9) Active confirmed Problem 58933016 Acute pain of left hip (M25.552) Active confirmed He describes a pain that is elicited by pressure on the side of his hip but not with walking. He will continue the prednisone come to the office as soon as possible. He will see orthopedics for an injection. Problem 534038055 Elevated PSA (R97.20) Active confirmed His PSA was 12.34 in September 2024. He still has not been to the neurologist. We have made another referral today. Problem 731235507 Type 2 diabetes mellitus without complication, without long-term current use of insulin (E11.9) Active confirmed His fasting glucose levels have been well controlled. He is compliant with his medications. He sees his automotive manager regularly. Problem Benign prostatic hypertrophy without outflow obstruction (509577014) Benign prostatic hyperplasia, unspecified whether lower urinary tract symptoms present (N40.0) Active confirmed He rises from sleep once a night to urinate. We discussed lifestyle modifications he could make to reduce nocturia. Problem 1765756 Multiple rib fractures involving four or more ribs (S22.49XA) Active confirmed The area has healed and he is breathing comfortably. He has a long vertical scar over his right chest wall but it is not painful when he coughs and sneezes. Problem 59679547 Mild dementia with agitation, unspecified dementia type (F03.A11) Active confirmed He has become increasingly for doubtful times and places. He has shown some agitation home with anger, throwing things and using language. After discussing this with him and his we have begun him on donepezil. Vital Signs Heart Rate 82 /min 01/27/2025 Temperature 96.8 degrees Fahrenheit 01/27/2025 Oximetry 98 % 01/27/2025 Blood pressure diastolic 80 mm Hg 01/27/2025 Height 66 in 01/27/2025 Blood pressure systolic 120 mm Hg 01/27/2025 Weight 196 lbs 01/27/2025 BMI 31.63 kg/m2 01/27/2025 Encounters Encounter Location Date Provider Diagnosis Ehsan Perez III, MD [address] [place] [address] [place] [address] 04/27/2024 Ehsan Perez Obesity E66.9 ; Kaela nary artery disease I25.10 ; Diabetes E11.9 ; Hyperlipidemia E78.5 ; Essential hypertension I10 ; Benign prostatic hyperplasia, unspecified whether lower urinary tract symptoms present N40.0 and Multiple rib fractures involving four or more ribs S22.49XA Ehsan Perez III, MD [address] [place] [address] [place] [address] 07/26/2024 Ehsan Perez Obesity E66.9 ; Diab etes E11.9 ; Hyperlipidemia E78.5 ; Essential hypertension I10 ; Benign prostatic hyperplasia, unspecified whether lower urinary tract symptoms present N40.0 ; Multiple rib fractures involving four or more ribs S22.49XA and Mild dementia with agitation, unspecified dementia type F03.A11 Ehsan Perez III, MD [address] [place] [address] [place] [address] 10/15/2024 Ehsan Perez Obesity E66.9 ; Acut [...] symptoms present N40.0 Ehsan Perez III, MD [address] [place] [address] [place] [address] 10/26/2024 Ehsan Perez Obesity E66.9 ; Kaela nary artery disease I25.10 ; Hyperlipidemia E78.5 ; Type 2 diabetes mellitus without complication, without long-term current use of insulin E11.9 ; Benign prostatic hyperplasia, unspecified whether lower urinary tract symptoms present N40.0 and Elevated PSA R97.20 Ehsan Perez III, MD [address] [place] [address] [place] [address] 01/27/2025 Ehsan Perez Obesity E66.9 ; Kaela nary artery disease I25.10 ; Hyperlipidemia E78.5 ; Essential hypertension I10 ; Diabetes E11.9 ; Multiple rib fractures involving four or more ribs S22.49XA ; Mild dementia with agitation, unspecified dementia type F03.A11 and Elevated PSA R97.20 Ehsan Perez III, MD [address] [place] [address] [place] [address] 01/31/2025 Ehsan Perez Elevated PSA R97.20 Ehsan Perez III, MD [address] [place] [address] [place] [address] 02/02/2024 Ehsan Perez Coronary artery dise ase I25.10 ; Obesity E66.9 ; Essential hypertension I10 ; Diabetes E11.9 ; Benign prostatic hyperplasia, unspecified whether lower urinary tract symptoms present N40.0 and Elevated PSA R97.20 Ehsan Perez III, MD [address] [place] [address] [address] [place], [place] [address] 10/13/2024 Ehsan Perez III, MD [address] [place] [address] [address] [place] [address] 10/14/2024 Ehsan Perez III, MD [address] [place] [address] [address] [place] [address] 10/19/2024 Ehsan Perez Assessments Encounter Date Diagnosis [...] of daily life without chest pain. 01/27/2025 Obesity (ICD-10 - E66.9) He has [...] activities of daily life without chest pain. 01/31/2025 Elevated PSA (ICD-10 - R97.20) 04/27/2024 Diabetes (ICD-10 - E11.9) His fasting [...] loss and a healthy Mediterranean diet. 01/27/2025 Hyperlipidemia (ICD-10 - E78.5) His lipids are currently stable and no change in his regimen was necessary. I recommended weight loss and a healthy Mediterranean diet. 02/02/2024 Coronary artery disease (ICD-10 - I25.10) 04/27/2024 Hyperlipidemia (ICD-10 - E78.5) His total [...] compliant with his medications. He sees his automotive manager regularly. 01/27/2025 Essential hypertension (ICD-10 - I10) His blood pressure is Controlled.. No change in his regimen was needed. I strongly recommend aggressive sodium restriction and ongoing weight loss. 02/02/2024 Obesity (ICD-10 - E66.9) 04/27/2024 Essential hypertension (ICD-10 - I10) His [...] modifications he could make to reduce nocturia. 01/27/2025 Diabetes (ICD-10 - E11.9) He has been compliant with medications. His hemoglobin A1c is 5.4. He is up-to-date with ophthalmology. No change in his regimen was made. 02/02/2024 Essential hypertension (ICD-10 - I10) 04/27/2024 Benign prostatic hyperplasia, unspecified whether lower [...] for further diagnostic considerations. He is asymptomatic. 01/27/2025 Multiple rib fractures involving four or more ribs (ICD-10 - S22.49XA) The area has healed and he is breathing comfortably. He has a long vertical scar over his right chest wall but it is not painful when he coughs and sneezes. 02/02/2024 Diabetes (ICD-10 - E11.9) 04/27/2024 Multiple rib fractures involving four or [...] we have begun him on donepezil. 01/27/2025 Mild dementia with agitation, unspecified dementia [...] time. He is amenable to active surveillance. 01/27/2025 Elevated PSA (ICD-10 - R97.20) His PSA was 12.34 in September 2024. He still has not been to the neurologist. We have made another referral today. 02/02/2024 Elevated PSA (ICD-10 - R97.20) 10/15/2024 Benign prostatic hyperplasia, unspecified whether lower urinary tract symptoms present (ICD-10 - N40.0) He rises from sleep once a night to urinate. We discussed lifestyle modifications he could make to reduce nocturia. Plan Of Treatment Pending Test Test Name Order Date PROFILE, FASTING (COMPREHENSIVE METABOLI C) 02/16/2021 PROFILE, FASTING (COMPREHENSIVE METABOLI C) 01/04/2019 PROFILE, FASTING (COMPREHENSIVE METABOLI C) 07/24/2023 PROFILE, [...] C) 10/29/2022 PROFILE, FASTING (COMPREHENSIVE METABOLI C) 04/22/2022 PROFILE, FASTING (COMPREHENSIVE METABOLI C) 01/27/2025 PROFILE, FASTING (COMPREHENSIVE METABOLI C) 07/30/2022 PROFILE, FASTING (COMPREHENSIVE METABOLI C) 06/05/2018 PROFILE, FASTING (COMPREHENSIVE METABOLI C) 03/20/2020 PROFILE, FASTING (COMPREHENSIVE METABOLI C) 02/20/2018 PROFILE, FASTING (COMPREHENSIVE METABOLI C) 01/21/2022 PROFILE, FASTING (COMPREHENSIVE METABOLI C) 10/26/2024 PROFILE, FASTING (COMPREHENSIVE METABOLI C) 07/26/2024 PROFILE, FASTING (COMPREHENSIVE METABOLI C) 02/02/2024 PROFILE, FASTING (COMPREHENSIVE METABOLI C) 12/09/2019 PROFILE, FASTING (COMPREHENSIVE METABOLI C) 04/27/2024 PROFILE, FASTING (COMPREHENSIVE METABOLI C) 08/05/2019 PROFILE, FASTING (COMPREHENSIVE METABOLI C) 09/17/2021 PROFILE, FASTING (COMPREHENSIVE METABOLI C) 10/24/2023 PROFILE, FASTING (COMPREHENSIVE METABOLI C) 06/18/2021 PROFILE, FASTING (COMPREHENSIVE METABOLI C) 05/06/2019 PROFILE, [...] 01/21/2022 LIPID PANEL 06/05/2018 LIPID PANEL 02/20/2018 LIPID PANEL 02/02/2024 PSA, TOTAL 07/30/2022 PSA, TOTAL 01/21/2022 PSA, TOTAL 10/24/2023 PSA, TOTAL 08/05/2019 PSA, TOTAL 09/17/2021 PSA, TOTAL 06/18/2021 PSA, TOTAL 05/06/2019 PSA, TOTAL 01/22/2023 PSA, TOTAL 10/29/2022 PSA, TOTAL 07/26/2024 PSA, TOTAL+FREE 01/27/2024 MICROALBUMIN, RANDOM 02/20/2018 MICROALBUMIN, RANDOM 08/05/2019 MICROALBUMIN, RANDOM 01/04/2019 MICROALBUMIN, RANDOM 10/17/2020 MICROALBUMIN, RANDOM 08/21/2017 MICROALBUMIN, RANDOM 06/20/2020 CBC w DIFF 06/05/2018 CBC w DIFF 02/02/2024 CBC w DIFF 07/24/2023 CBC w DIFF 07/30/2022 CBC w DIFF 01/21/2022 CBC w DIFF 02/20/2018 CBC w DIFF 12/09/2019 CBC w DIFF 02/16/2021 CBC w DIFF 11/20/2017 CBC w DIFF 09/17/2021 CBC w DIFF 06/18/2021 CBC w DIFF 04/22/2022 CBC w DIFF 08/05/2019 CBC w DIFF 01/27/2025 CBC w DIFF 05/06/2019 CBC w DIFF 01/04/2019 CBC w DIFF 10/17/2020 CBC w DIFF 08/21/2017 CBC w DIFF 09/04/2018 CBC w DIFF 06/20/2020 CBC w DIFF 05/06/2017 CBC w DIFF 10/26/2024 CBC w DIFF 01/22/2023 CBC w DIFF 03/20/2020 CBC w DIFF 10/29/2022 CBC WITH AUTO DIFF 04/27/2024 CBC WITH AUTO DIFF 07/26/2024 CBC WITH AUTO DIFF 04/24/2023 CBC WITH AUTO DIFF 10/24/2023 CBC WITH AUTO DIFF 01/27/2024 Lipid Panel 10/26/2024 Lipid Panel 04/27/2024 Lipid Panel 07/26/2024 Lipid Panel 07/24/2023 Lipid Panel 04/24/2023 Lipid Panel 10/24/2023 Lipid Panel 02/16/2021 Lipid Panel 01/27/2024 Lipid Panel 06/18/2021 Lipid Panel 04/22/2022 Lipid Panel 01/27/2025 PSA Free and Total 01/27/2025 PSA Free and Total 02/02/2024 PSA Free and Total 01/31/2025 Microalbumin, Random 01/27/2025 Microalbumin, Random 04/27/2024 Microalbumin, Random 07/24/2023 Microalbumin, Random 04/24/2023 Microalbumin, Random 10/24/2023 Microalbumin, Random 02/16/2021 Microalbumin, Random 04/22/2022 Hemoglobin A1c 10/26/2024 Hemoglobin A1c 04/22/2022 Hemoglobin A1c 01/27/2025 Hemoglobin A1c 07/26/2024 Hemoglobin A1c 04/27/2024 Hemoglobin A1c 07/24/2023 Hemoglobin A1c 04/24/2023 Hemoglobin A1c 10/24/2023 Next Appt Details Provider Name:Ehsan Perez, 04/28/2025 10:00:00 AM, [address] [place] [address] [address], [place], [address], Provider Name:Ehsan Perez, 01/31/2026 10:00:00 AM, [address] [place] [address] [address], [place], [address], Insurance Providers Payer Name Payer Address Payer Phone Subscriber Number Group Number Insured Name Patient Relationship to Insured Coverage Start Date Coverage End Date MEDICARE NGS [address] [place] [address] [id number] Ramakrishna Locke Self - patient is the insured [facility] CLAIM DIV [address] [place] [address] [id number] Ramakrishna Locke Self - patient is the insured Medical (General) History Medical History History ICD Code Coronary artery disease I25.10 Bilateral cataracts H26.9 Obesity E66.9 Hyperlipidemia E78.5 Essential hypertension I10 Diabetes E11.9 Hernia K46.9 multiple traumatic right rib fractures. 2017, surgically corrected Surgical History Surgery Date(Month/Year) No history surgical repair right-sided flail chest 01/2017 rib fractures with surgical repair three-vessel coronary artery bypass delvis ting inguinal herniorrhaphy appendectomy Hospitalization History Reason Date(Month/Year) No history
--- OUTSIDE RECORDS SUMMARY | 2025-02-01 10:50 | XMS_ITS ---
Author Organization [facility] Care Team Providers Care Calender Let Off Helper Name Role Phone Awkal, May Unavailable Unavailable Allergies and adverse reactions No Known Allergies Care Team Name Role Address Phone Organization Dates [facility] [address] [place], [address], [place] (Office): : [facility] 02/17/2017 - 02/20/2017 Goals Section Goals Description Status Target Date Resident will achieve acceptable level of pain c ontrol. Active 05/19/2017 Resident will be free of all signs and symptoms of hypo/hyperglycemia such as: sweating, trembling, thirst, fatigue, weakness, blurred vision. Active 05/19/2017 Resident will have no falls with injury. Active 05/19/2017 Resident will have no sign/symptoms of respirato ry distress. Active 05/19/2017 Resident will have the small est most effective dose without side effects. Active 05/19/2017 The resident will not show signs of skin breakdo wn. Active 05/19/2017 Immunizations Immunization Status Vaccine Details Vaccine Code CodeSystem Date Notes Pneumovax Dose 1 cancelled pneumococcal polysaccharide vaccine, 23 valent 33 CVX created date: 02/18/2017 consent date: 02/18/2017 PCV (Prevnar) 13 cancelled pneumococcal conjugate vaccine, 13 valent 133 CVX created date: 02/18/2017 consent date: 02/18/2017 Influenza (vial) cancelled Influenza, spli t virus, trivalent, injectable, contains preservative 141 CVX created date: 02/18/2017 consent date: 02/18/2017 Mental Status Section Date Assessment Total Score Description 02/20/2017 BIMS 15 cognitively int act CAM 0 No delirium ind icated PHQ-9 05 mild depression Problems Problem # Description Date of onset Resolved Date Code CodeSystem Concern Status 1 PNEUMONIA, UNSPECIFIED ORGANISM 02/19/[address] active 2 ATHEROSCLEROTIC HEART DISEASE OF [place] CORONARY ARTERY WITHOUT ANGINA PECTORIS 02/18/[address] active 3 DIFFICULTY IN WALKING, NOT ELSEWHERE CLASSIFIED 02/18/[address] active 4 FRACTURE OF ONE RIB, UNSPECIFIED SIDE, INITIAL ENCOUNTER FOR CLOSED FRACTURE 02/18/[address] active 5 HYPERLIPIDEMIA, UNSPECIFIED 02/18/[address] active 6 HYPO-OSMOLALITY AND HYPONATREMIA 02/18/[address] active 7 MULTIPLE FRACTURES OF RIBS, RIGHT SIDE, SUBSEQUENT ENCOUNTER FOR FRACTURE WITH ROUTINE HEALING 02/18/[address] active 8 MUSCLE WEAKNESS (GENERALIZED) 02/18/[address] active 9 OTHER LACK OF COORDINATION 02/18/[address] active 10 POSTPROCEDURAL PNEUMOTHORAX 02/18/[address] active 11 PRESENCE OF OTHER SPECIFIED DEVICES 02/18/[address] active 12 TYPE 2 DIABETES MELLITUS WITHOUT COMPLICATIONS 02/18/[address] active Reason for Referral No Reasons for Referral Entered Social History Social History Observation Description Start Date End Date Code Code System Current Smoking Status Tobacco smoking consumption unknown 450313808 SNOMED CT Sex Assigned At Male 1940 37952-0 [facility] Gender Identity Vital Signs Code Code System Vitals Name Values and Units Timing Information 2339-0 [facility] Blood Sugar Ldyaz=882.0 Units=mg/dL 02/20/2017 88625-4 [facility] Pain Level Value=5.0 02/20/2017 9279-1 [facility] Respiratory Rate Value=20.0 Units=/m in 02/20/2017 8462-4 [facility] Blood Pressure-Diastolic Value=62 Un its=mmHg 02/20/2017 8480-6 [facility] Blood Pressure-Systolic Scpyl=423 Un its=mmHg 02/20/2017 8310-5 [facility] Body Temperature Value=98.0 Units= F 02/20/2017 8867-4 [facility] Heart rate Value=95.0 Units=/min 81554-5 [facility] Weight Bekns=738.6 Units=Lbs 8302-2 [facility] Height Value=66.0 Units=Inches 02/18/2017 24032-3 [facility] O2 % BldC Oximetry Value=96.0 Units= % 02/18/2017
[2025-02-02 11:38] LABS: Free Prostate Spec Ag 1.9 ng/mL; Percent Free Prostate Spec Ag 23 % (calc) (>25)
== END 2025-02-01 09:24 | disposition home or self-care (01) ==
LOC: HO.LAB 09:23
PROVIDERS: PCP Internal Medicine Medical Oncology; Visit Provider Internal Medicine Medical Oncology
DX: R97.20 Elevated prostate specific antigen [PSA] (principal)
CPT/HCPCS: 36415; 84154

== ENCOUNTER 2025-05-02 08:37 | Outpatient (REF) | payer MEDICARE, SELFPAY ==
[2025-05-02 09:01] LABS: MANUAL DIFF FLAG NO
[2025-05-02 09:19] LABS: Hematocrit 46.8 % (42.0-52.0); Hemoglobin 15.8 g/dl (14.0-18.0); Imm Gran Abs Auto 0.04 X10*3/uL (0.00-0.03); Imm Gran Pct Auto 0.5 % (0.0-0.4); Lymphocytes Absolute Auto 1.6 X10*3/uL (1.2-4.9); Mean Corpuscular HGB Conc 33.8 g/dl (31.0-36.0); Mean Corpuscular Hemoglobin 30.7 pg (27.0-33.0); Mean Corpuscular Volume 90.9 fL (80.0-98.0); NRBC Abs Auto 0.000 X10*3/uL (0.0-0.012); NRBC Pct Auto 0.0 /100WBC (0.0-0.2); Platelet Count 178 X10*3/uL (160-400); Red Blood Count 5.15 X10*6/uL (4.60-5.80); White Blood Count 8.5 X10*3/uL (4.8-10.8)
[2025-05-02 09:52] LABS: Microalbum/Creatinine Ratio Ur 5.2 ug/mg cr (<30)
[2025-05-02 09:56] LABS: Alanine Aminotransferase 19 U/L (0-40); Albumin Level 4.3 g/dL (3.5-5.0); Alkaline Phosphatase 92 U/L (39-117); Anion Gap 17 (12-20); Aspartate Amino Transferase 37 U/L (5-37); Blood Urea Nitrogen 19 mg/dL (9-16); Calcium 9.5 mg/dL (8.4-10.2); Carbon Dioxide 20 mmol/L (22-29); Chloride 104 mmol/L (96-108); Cholesterol 109 mg/dL (<200); Estimated Glomerular Filt Rate > 60; HDL Cholesterol 27 mg/dL (>40); Potassium 4.8 mmol/L (3.3-5.1); Sodium 136 mmol/L (135-145); Total Protein 7.1 g/dL (6.5-8.0); Triglycerides 150 mg/dL (<150)
[2025-05-04 12:13] LABS: Free Prostate Spec Ag 1.5 ng/mL; Percent Free Prostate Spec Ag 24 % (calc) (>25)
== END 2025-05-02 08:38 | disposition home or self-care (01) ==
LOC: HO.LAB 08:37
PROVIDERS: PCP Internal Medicine Medical Oncology; Visit Provider Internal Medicine Medical Oncology
DX: I10 Essential (primary) hypertension (principal); E11.9 Type 2 diabetes mellitus without complications; E66.9 Obesity, unspecified; E78.5 Hyperlipidemia, unspecified; R97.20 Elevated prostate specific antigen [PSA]
CPT/HCPCS: 36415; 80053; 80061; 82043; 82570; 83036; 84154; 85025